=== PATIENT | male | born 1960 | race Caucasian/White ===

== ENCOUNTER 2017-04-03 04:51 | Emergency (ER) | payer OTHER ==
[~2017-04-03] VITALS: Ht 182.9 cm; Wt 86.2 kg
[2017-04-03] MEDS ORDERED: cloNIDine HCL 0.1 MG TAB ONE (05:06)
[2017-04-03] MEDS ORDERED: cloNIDine HCL 0.1 MG TAB PO ONE (05:15)
[2017-04-03 09:02] LABS: Basophils # (auto) 0.1 uL; Basophils % (auto) 0.7 % (0.0-2.0); Eosinophils # (auto) 0.4 uL; Eosinophils % (auto) 4.7 % (0.0-7.0); Hematocrit 45.7 % (41.0-53.0); Hemoglobin 15.4 g/dL (13.5-17.5); Lymphocytes # (auto) 2.9 uL; Lymphocytes % (auto) 34.3 % (10.0-50.0); Mean Corpuscular Hemoglobin 29.8 pg (28.0-32.0); Mean Corpuscular Hgb Conc. 33.7 g/dL (32.0-36.0); Mean Corpuscular Volume 88.5 fL (80.0-100.0); Monocytes # (auto) 0.8 uL; Monocytes % (auto) 9.7 % (0.0-12.0); Neutrophils # (auto) 4.2 uL; Neutrophils % (auto) 50.6 % (37.0-80.0); Nucleated Red Blood Cells % 0.1 %; Platelet Count (auto) 190 10^3/uL (140-450); Red Blood Cells 5.16 10^6/uL (4.5-5.90); White Blood Cell 8.4 10^3/uL (4.4-10.8)
[2017-04-03 09:27] LABS: Alanine Aminotransferase 28 U/L (16-61); Albumin 3.4 g/dL (3.4-5.0); Alkaline Phosphatase 112 U/L (45-117); Amylase 32 U/L (25-115); Anion Gap 5 (5-15); Aspartate Aminotransferase 22 U/L (15-37); BUN/Creatinine Ratio 17.7; Bilirubin, Total 0.3 mg/dL (0.2-1.0); Blood Urea Nitrogen 26 mg/dL (7-18); Carbon Dioxide 30 mmol/L (21-32); Chloride 106 mmol/L (98-107); GFR African American 63 mL/min; GFR Non-African American 52 mL/min; Glucose 113 mg/dL (74-106); Lipase 110 U/L (73-393); Magnesium 2.7 mg/dL (1.6-2.6); Sodium 141 mmol/L (136-145); Total Protein 8.6 g/dL (6.4-8.2)
[2017-04-03] MEDS ORDERED: SODIUM CHLORIDE 0.9% 1,000 ML IVB ONE (11:11)
[2017-04-03] MEDS ORDERED: NALBUPHINE HCL 10 MG/1ml INJECTION IV ONE (11:15)
[2017-04-03] MEDS ORDERED: PROMETHAZINE HCL 25 MG/ML 1ML IV PRN (11:15)
[2017-04-03 13:00] VITALS: BP 155/101
== END 2017-04-03 13:34 | disposition home or self-care (01) ==
LOC: ER 04:54
DX: K42.9 Umbilical hernia without obstruction or gangrene (principal); K44.9 Diaphragmatic hernia without obstruction or gangrene; F17.210 Nicotine dependence, cigarettes, uncomplicated
CPT/HCPCS: 36415; 74176; 80053; 82150; 83690; 83735; 84484; 85025; 96361; 96374; 96375; 99285; J2300; J2550; J7030

== ENCOUNTER 2020-09-29 17:42 | Emergency (ER) | payer OTHER ==
[~2020-09-29] VITALS: Ht 182.9 cm; Wt 74.8 kg
[2020-09-29 18:01] VITALS: BP 141/110
[2020-09-29 19:00] LABS: Basophils # (auto) 0.2 10 ^3/uL (0-0.2); Basophils % (auto) 2.2 % (0.0-2.0); Eosinophils # (auto) 0.4 10 ^3/uL (0-0.8); Hemoglobin 13.1 g/dL (13.5-17.5); Lymphocytes # (auto) 2.8 10 ^3/uL (0.4-5.4); Lymphocytes % (auto) 31.4 % (10.0-50.0); Mean Corpuscular Hemoglobin 26.8 pg (28.0-32.0); Mean Corpuscular Hgb Conc. 32.9 g/dL (32.0-36.0); Mean Corpuscular Volume 81.5 fL (80.0-100.0); Monocytes # (auto) 0.6 10 ^3/uL (0-1.3); Monocytes % (auto) 6.3 % (0.0-12.0); Neutrophils # (auto) 4.9 10 ^3/uL (1.6-8.6); Neutrophils % (auto) 56.1 % (37.0-80.0); Nucleated Red Blood Cells % 0.2 %; Red Blood Cells 4.91 10^6/uL (4.5-5.90); Red Cell Distribution Width 19.4 % (11.8-14.3); White Blood Cell 8.8 10^3/uL (4.4-10.8)
[2020-09-29 19:20] LABS: Albumin 2.9 g/dL (3.4-5.0); Blood Urea Nitrogen 29 mg/dL (7-18); Calcium 9.3 mg/dL (8.5-10.1); Carbon Dioxide 24 mmol/L (21-32); Glucose 85 mg/dL (74-106)
[2020-09-29 19:25] LABS: Alanine Aminotransferase 29 U/L (16-61); Alkaline Phosphatase 227 U/L (45-117); Anion Gap 8 (5-15); Aspartate Aminotransferase 23 U/L (15-37); BUN/Creatinine Ratio 12.8; Bilirubin, Total 0.5 mg/dL (0.2-1.0); Chloride 107 mmol/L (98-107); GFR African American 38 mL/min; GFR Non-African American 31 mL/min; Potassium 3.9 mmol/L (3.5-5.1); Sodium 139 mmol/L (136-145); Total Protein 9.2 g/dL (6.4-8.2)
== END 2020-09-29 21:38 | disposition left against medical advice (07) ==
LOC: ER 17:42
DX: K56.41 Fecal impaction (principal); E11.9 Type 2 diabetes mellitus without complications; I10 Essential (primary) hypertension; F17.210 Nicotine dependence, cigarettes, uncomplicated; I25.2 Old myocardial infarction; F15.10 Other stimulant abuse, uncomplicated
CPT/HCPCS: 36415; 71045; 74176; 80053; 84484; 85025; 87040; 93005

== ENCOUNTER 2020-12-26 15:55 | Inpatient (IN) | payer OTHER ==
[~2020-12-26] VITALS: Ht 180.3 cm; Wt 79.5 kg
[2020-12-26 17:07] LABS: Basophils # (auto) 0.1 10 ^3/uL (0-0.2); Basophils % (auto) 1.3 % (0.0-2.0); Eosinophils # (auto) 0.3 10 ^3/uL (0-0.8); Eosinophils % (auto) 4.5 % (0.0-7.0); Hemoglobin 11.8 g/dL (13.5-17.5); Lymphocytes # (auto) 1.6 10 ^3/uL (0.4-5.4); Lymphocytes % (auto) 22.2 % (10.0-50.0); Mean Corpuscular Hemoglobin 30.3 pg (28.0-32.0); Mean Corpuscular Hgb Conc. 32.6 g/dL (32.0-36.0); Mean Corpuscular Volume 92.7 fL (80.0-100.0); Monocytes # (auto) 0.5 10 ^3/uL (0-1.3); Monocytes % (auto) 6.6 % (0.0-12.0); Neutrophils # (auto) 4.8 10 ^3/uL (1.6-8.6); Neutrophils % (auto) 65.4 % (37.0-80.0); Red Blood Cells 3.88 10^6/uL (4.5-5.90); Red Cell Distribution Width 19.5 % (11.8-14.3); White Blood Cell 7.4 10^3/uL (4.4-10.8)
[2020-12-26 17:25] LABS: Albumin 3.4 g/dL (3.4-5.0); Calcium 9.1 mg/dL (8.5-10.1); Potassium 4.1 mmol/L (3.5-5.1)
[2020-12-26 17:33] LABS: BUN/Creatinine Ratio 13.7; Bilirubin, Total 0.6 mg/dL (0.2-1.0); Total Protein 8.9 g/dL (6.4-8.2)
[2020-12-26] MEDS ORDERED: FUROSEMIDE 40 MG/4 ML VIAL IV ONE ×2 (17:45→18:45)
[2020-12-26] MEDS ORDERED: LORazepam 0.5 MG TAB ONE (18:03)
[2020-12-26] MEDS ORDERED: DEXTROSE (50%) 50ML SYRG IV PRN (18:30)
[2020-12-26] MEDS ORDERED: MORPHINE SULFATE INJECTION 2 MG/ML SYRG IV PRN ×3 (18:30→19:00)
[2020-12-26] MEDS ORDERED: NITROGLYCERIN 0.4 MG SL TAB SL PRN ×2 (18:30→19:00)
[2020-12-26] MEDS ORDERED: METOPROLOL SUCCINATE XL 50 MG TAB PO ONE (18:30)
[2020-12-26] MEDS ORDERED: IPRATROPIUM BROM 0.5 MG/2.5ML INH SOL NEB ONE (18:45)
[2020-12-26] MEDS ORDERED: SODIUM CHLORIDE 0.9% 1,000 ML IV SCH (18:45)
[2020-12-26] MEDS ORDERED: LACTATED RINGER'S 1,000 ML IV ONE (18:45)
[2020-12-26] MEDS ORDERED: FAMOTIDINE (10MG/ML) 2ML VL IV ONE (18:45)
[2020-12-26] MEDS ORDERED: BENAZEPRIL HCL 10 MG TAB PO ONE (18:45)
[2020-12-26] MEDS ORDERED: AMIODARONE HCL 200 MG TAB PO ONE (18:45)
[2020-12-26] MEDS ORDERED: METOPROLOL TARTRATE 1MG/1ML-5ML VIAL IV PRN (18:45)
[2020-12-26] MEDS ORDERED: guaiFENesin-DM 100/10mg/5ml SYR PO ONE (18:45)
[2020-12-26] MEDS ORDERED: DULoxetine HCL 30 MG CAP PO ONE (19:00)
[2020-12-26] MEDS ORDERED: ACETAMINOPHEN 325 MG TAB PO PRN (19:00)
[2020-12-26] MEDS ORDERED: ALUM & MAG HYDROX-SIMETH LIQ(MAALOX) 30 ML PO PRN (19:00)
[2020-12-26] MEDS ORDERED: DOCUSATE SOD 100 MG CAP PO PRN (19:00)
[2020-12-26] MEDS ORDERED: HYDROcodone-ACET 5/325MG TAB PO PRN (19:00)
[2020-12-26] MEDS ORDERED: LORazepam 2MG/ML-1ML VIAL IV PRN (21:00)
[2020-12-26 21:04] LABS: Urine Bacteria NONE SEEN /hpf (None Seen); Urine Blood Negative /uL (Negative); Urine Hyaline Cast FEW /lpf (0 - 2); Urine Mucus FEW (None Seen); Urine Specific Gravity 1.025 (1.001-1.035); Urine Sperm PRESENT /hpf (None Seen); Urine WBC 2 /hpf (0 - 3)
[2020-12-26 21:15] LABS: Alcohol, Urine < 3.0 mg/dL (0-10); Amphetamine Screen, Urine POSITIVE (NEGATIVE); Barbiturate Scree,Urine NEGATIVE (NEGATIVE); Benzodiazephine Screen, Urine NEGATIVE (NEGATIVE); Cannabinoid Screen, Urine NEGATIVE (NEGATIVE); Cocaine Screen, Urine NEGATIVE (NEGATIVE); Opiate Scree,Urine NEGATIVE (NEGATIVE); Phencyclidine Screen, Urine NEGATIVE (NEGATIVE)
[2020-12-26] MEDS: LORazepam 0.5 MG TAB PO PRN (21:41)
[2020-12-26] MEDS: IPRATROPIUM BROM 0.5 MG/2.5ML INH SOL NEB SCH (21:45)
[2020-12-26] MEDS ORDERED: ATORVASTATIN 20 MG TAB PO SCH (22:00)
[2020-12-26 22:31] VITALS: BP 131/84
[2020-12-27] VITALS (9 sets, daily range): BP systolic 98–138; BP diastolic 71–89
[2020-12-27] MEDS: InsuLIN REG 1unit/0.01ml Soln (100units/ml) SC SCH ×5 (00:10→23:12)
[2020-12-27] MEDS: ACCU-CHEK COMFORT CURVE STRIP VI SCH ×5 (00:11→22:00)
[2020-12-27] MEDS ORDERED: METO25TA5 PO (00:24)
[2020-12-27] MEDS ORDERED: LISI-716 PO (00:24)
[2020-12-27] MEDS ORDERED: METF-372 PO (00:24)
[2020-12-27] MEDS ORDERED: LEVO50TA7 PO (00:24)
[2020-12-27] MEDS ORDERED: ASPI1TAB19 PO (00:24)
[2020-12-27] MEDS ORDERED: HYDR25TA5 PO (00:24)
[2020-12-27] MEDS ORDERED: INSU1INJ19 SC (00:24)
[2020-12-27] MEDS ORDERED: ATOR10TA52 PO (00:24)
[2020-12-27] MEDS ORDERED: APIX5TAB PO (00:24)
[2020-12-27] MEDS: IPRATROPIUM BROM 0.5 MG/2.5ML INH SOL NEB SCH ×6 (02:56→23:26)
[2020-12-27] MEDS ORDERED: FUROSEMIDE 20 MG/2 ML VIAL IV SCH (06:00)
[2020-12-27] MEDS: guaiFENesin-DM 100/10mg/5ml SYR PO PRN (06:30)
[2020-12-27] MEDS: LEVOTHYROXINE SODIUM 50 MCG TAB PO SCH (06:30)
[2020-12-27] MEDS ORDERED: AMIODARONE HCL 200 MG TAB PO SCH (10:00)
[2020-12-27] MEDS ORDERED: BENAZEPRIL HCL 10 MG TAB PO SCH (10:00)
[2020-12-27] MEDS ORDERED: DULoxetine HCL 30 MG CAP PO SCH (10:00)
[2020-12-27] MEDS: ASPirin 81 mg TAB PO SCH (10:05)
[2020-12-27] MEDS: FAMOTIDINE (10MG/ML) 2ML VL IV SCH (10:05)
[2020-12-27] MEDS: LORazepam 0.5 MG TAB PO PRN (10:28)
[2020-12-27 18:19] LABS: Eosinophils # (auto) 0 10 ^3/uL (0-0.8); Eosinophils % (auto) 0.1 % (0.0-7.0); Nucleated Red Blood Cells % 0.1 %
[2020-12-27 18:21] LABS: Basophils # (auto) 0.1 10 ^3/uL (0-0.2); Basophils % (auto) 0.9 % (0.0-2.0); Hematocrit 39.9 % (41.0-53.0); Hemoglobin 12.5 g/dL (13.5-17.5); Lymphocytes # (auto) 1.2 10 ^3/uL (0.4-5.4); Lymphocytes % (auto) 8.5 % (10.0-50.0); Mean Corpuscular Hemoglobin 29.8 pg (28.0-32.0); Mean Corpuscular Hgb Conc. 31.3 g/dL (32.0-36.0); Mean Corpuscular Volume 95.5 fL (80.0-100.0); Monocytes # (auto) 1.4 10 ^3/uL (0-1.3); Monocytes % (auto) 9.3 % (0.0-12.0); Neutrophils # (auto) 11.9 10 ^3/uL (1.6-8.6); Neutrophils % (auto) 81.2 % (37.0-80.0); Red Blood Cells 4.18 10^6/uL (4.5-5.90); Red Cell Distribution Width 19.8 % (11.8-14.3); White Blood Cell 14.6 10^3/uL (4.4-10.8)
[2020-12-27 18:32] LABS: Albumin 3.5 g/dL (3.4-5.0); Calcium 8.9 mg/dL (8.5-10.1)
[2020-12-27 18:40] LABS: BUN/Creatinine Ratio 14.5; Bilirubin, Total 3.6 mg/dL (0.2-1.0); Total Protein 8.5 g/dL (6.4-8.2)
[2020-12-27] MEDS: D5W/SOD CHLO 0.9% 1,000 ML IV SCH ×2 (18:40→23:37)
[2020-12-27 18:45] LABS: Potassium 6.4 mmol/L (3.5-5.1)
[2020-12-27] MEDS ORDERED: ALBUTEROL SULF 2.5 MG/0.5ML(0.5%) NEB SOLN ONE (18:57)
[2020-12-27] MEDS ORDERED: DEXTROSE (50%) 50ML SYRG IV ONE (19:00)
[2020-12-27] MEDS ORDERED: FUROSEMIDE 40 MG/4 ML VIAL IV ONE (19:00)
[2020-12-27] MEDS ORDERED: CALCIUM CHL 100MG/ML 1,000 MG in D5W 5% 100 ML IV ONE (19:00)
[2020-12-27] MEDS ORDERED: SODIUM ZIRCONIUM CYCL 10 GM PAK PO ONE (19:00)
[2020-12-27] MEDS ORDERED: InsuLIN REG 1unit/0.01ml Soln (100units/ml) IV ONE (19:00)
[2020-12-27] MEDS ORDERED: ALBUTEROL SULF 2.5 MG/0.5ML(0.5%) NEB SOLN NEB ONE (19:00)
[2020-12-27] MEDS ORDERED: SODIUM CHLORIDE 0.9% 250 ML IV ONE (19:00)
[2020-12-27] MEDS ORDERED: SODIUM BICARBONATE 8.4% INJ 50ML SYRINGE IV ONE (19:00)
[2020-12-27 19:59] LABS: Magnesium 2.6 mg/dL (1.6-2.6); Phosphorus 8.4 mg/dL (2.5-4.90)
[2020-12-27] MEDS ORDERED: CALCIUM GLUC 1,000mg/50ml-NS 50 ML IV ONE (20:28)
[2020-12-27] MEDS ORDERED: DEXTROSE 50% SYRINGE 50 ML IV ONE (20:29)
[2020-12-27] MEDS: SODIUM ZIRCONIUM CYCL 10 GM PAK PO SCH (22:00)
[2020-12-28] MEDS: IPRATROPIUM BROM 0.5 MG/2.5ML INH SOL NEB SCH ×6 (02:00→22:51)
[2020-12-28 05:00] VITALS: BP 88/50
[2020-12-28 05:42] LABS: Basophils # (auto) 0 10 ^3/uL (0-0.2); Basophils % (auto) 0.5 % (0.0-2.0); Eosinophils # (auto) 0 10 ^3/uL (0-0.8); Eosinophils % (auto) 0.1 % (0.0-7.0); Hematocrit 32.6 % (41.0-53.0); Hemoglobin 10.2 g/dL (13.5-17.5); Lymphocytes # (auto) 1.4 10 ^3/uL (0.4-5.4); Lymphocytes % (auto) 13.6 % (10.0-50.0); Mean Corpuscular Hemoglobin 30.5 pg (28.0-32.0); Mean Corpuscular Hgb Conc. 31.2 g/dL (32.0-36.0); Mean Corpuscular Volume 97.8 fL (80.0-100.0); Monocytes # (auto) 0.6 10 ^3/uL (0-1.3); Monocytes % (auto) 5.9 % (0.0-12.0); Neutrophils # (auto) 8.1 10 ^3/uL (1.6-8.6); Neutrophils % (auto) 79.9 % (37.0-80.0); Red Blood Cells 3.33 10^6/uL (4.5-5.90); Red Cell Distribution Width 19.8 % (11.8-14.3); White Blood Cell 10.2 10^3/uL (4.4-10.8)
[2020-12-28] MEDS: ACCU-CHEK COMFORT CURVE STRIP VI SCH ×4 (05:49→22:00)
[2020-12-28] MEDS: InsuLIN REG 1unit/0.01ml Soln (100units/ml) SC SCH ×4 (05:50→22:00)
[2020-12-28 05:57] LABS: Chloride 112 mmol/L (98-107); Potassium 4.6 mmol/L (3.5-5.1); Sodium 140 mmol/L (136-145)
[2020-12-28] MEDS: SODIUM ZIRCONIUM CYCL 10 GM PAK PO SCH ×2 (05:57→15:07)
[2020-12-28 06:03] LABS: Albumin 2.2 g/dL (3.4-5.0); Alkaline Phosphatase 155 U/L (45-117); BUN/Creatinine Ratio 13.7; Bilirubin, Total 1.7 mg/dL (0.2-1.0); Blood Urea Nitrogen 51 mg/dL (7-18); Carbon Dioxide 14 mmol/L (21-32); GFR African American 21 mL/min; GFR Non-African American 18 mL/min; Glucose 141 mg/dL (74-106); Total Protein 6.4 g/dL (6.4-8.2)
[2020-12-28] MEDS: guaiFENesin-DM 100/10mg/5ml SYR PO PRN (06:07)
[2020-12-28] MEDS: LEVOTHYROXINE SODIUM 50 MCG TAB PO SCH (06:07)
[2020-12-28] MEDS ORDERED: MIDODRINE HCL 10 MG TAB PO ONE (08:00)
[2020-12-28 08:14] LABS: Anion Gap 14 (5-15)
[2020-12-28 08:45] VITALS: BP 94/63
[2020-12-28 09:50] LABS: Alanine Aminotransferase 942 U/L (16-61); Aspartate Aminotransferase > 1000 U/L (15-37)
[2020-12-28] MEDS: ASPirin 81 mg TAB PO SCH (10:03)
[2020-12-28] MEDS: FAMOTIDINE (10MG/ML) 2ML VL IV SCH (10:03)
[2020-12-28 14:30] VITALS: BP 95/74
[2020-12-28] MEDS: ONDANSETRON HCL 4 MG/2 ML VIAL IV PRN (15:07)
[2020-12-28 17:00] VITALS: BP 90/72
[2020-12-28] MEDS ORDERED: SODIUM CHLORIDE 0.9% 1,000 ML IV SCH (17:15)
[2020-12-28] MEDS ORDERED: SODIUM BICARBONATE 8.4 % INJ 50ML VIAL IV ONE (17:45)
[2020-12-28] MEDS ORDERED: cefTRIAXone 1GM/50ML D5W 50 ML IV ONE (17:45)
[2020-12-28 20:00] VITALS: BP 99/77
[2020-12-28 22:00] VITALS: BP 99/77
[2020-12-28] MEDS: D5W/SOD CHLO 0.9% 1,000 ML IV SCH (23:33)
[2020-12-29] VITALS (7 sets, daily range): BP systolic 107–113; BP diastolic 7–80
[2020-12-29 05:54] LABS: Basophils # (auto) 0.1 10 ^3/uL (0-0.2); Basophils % (auto) 1.6 % (0.0-2.0); Eosinophils # (auto) 0.2 10 ^3/uL (0-0.8); Eosinophils % (auto) 2.6 % (0.0-7.0); Hematocrit 32.4 % (41.0-53.0); Hemoglobin 10.6 g/dL (13.5-17.5); Lymphocytes # (auto) 1.3 10 ^3/uL (0.4-5.4); Mean Corpuscular Hemoglobin 30.9 pg (28.0-32.0); Mean Corpuscular Hgb Conc. 32.7 g/dL (32.0-36.0); Mean Corpuscular Volume 94.4 fL (80.0-100.0); Monocytes # (auto) 0.7 10 ^3/uL (0-1.3); Monocytes % (auto) 7.9 % (0.0-12.0); Neutrophils % (auto) 71.9 % (37.0-80.0); Nucleated Red Blood Cells % 0.6 %; Red Blood Cells 3.43 10^6/uL (4.5-5.90); Red Cell Distribution Width 19.5 % (11.8-14.3); White Blood Cell 8.3 10^3/uL (4.4-10.8)
[2020-12-29] MEDS: IPRATROPIUM BROM 0.5 MG/2.5ML INH SOL NEB SCH ×5 (05:56→22:12)
[2020-12-29 06:07] LABS: Potassium 4.7 mmol/L (3.5-5.1)
[2020-12-29 06:13] LABS: BUN/Creatinine Ratio 15.5; Calcium 8.3 mg/dL (8.5-10.1)
[2020-12-29] MEDS: ACCU-CHEK COMFORT CURVE STRIP VI SCH ×4 (06:54→21:28)
[2020-12-29] MEDS: InsuLIN REG 1unit/0.01ml Soln (100units/ml) SC SCH ×4 (06:59→21:31)
[2020-12-29] MEDS: LEVOTHYROXINE SODIUM 50 MCG TAB PO SCH (07:00)
[2020-12-29] MEDS: FAMOTIDINE (10MG/ML) 2ML VL IV SCH (09:31)
[2020-12-29] MEDS: cefTRIAXone 1GM/50ML D5W 50 ML IV SCH (09:31)
[2020-12-29] MEDS: ASPirin 81 mg TAB PO SCH (09:31)
[2020-12-29 13:39] LABS: Hepatitis A Ab IgM Negative
[2020-12-29 13:59] LABS: Hepatitis B Core IgM Negative
[2020-12-29] MEDS ORDERED: LEVOTHYROXINE SODIUM 100 MCG/5 ML INJ IV ONE (14:15)
[2020-12-29] MEDS ORDERED: MORPHINE SULFATE INJECTION 2 MG/ML SYRG IV PRN (14:15)
[2020-12-29 14:17] LABS: Hepatitis C Antibody Negative (Negative)
[2020-12-29] MEDS: D5W/SOD CHLO 0.9% 1,000 ML IV SCH (21:04)
[2020-12-30 05:00] VITALS: BP 105/68
[2020-12-30 06:13] LABS: Basophils # (auto) 0 10 ^3/uL (0-0.2); Basophils % (auto) 0.6 % (0.0-2.0); Eosinophils # (auto) 0.3 10 ^3/uL (0-0.8); Eosinophils % (auto) 4.4 % (0.0-7.0); Hematocrit 34.8 % (41.0-53.0); Hemoglobin 11.3 g/dL (13.5-17.5); Lymphocytes # (auto) 1.1 10 ^3/uL (0.4-5.4); Lymphocytes % (auto) 15.2 % (10.0-50.0); Mean Corpuscular Hemoglobin 30.6 pg (28.0-32.0); Mean Corpuscular Hgb Conc. 32.6 g/dL (32.0-36.0); Monocytes # (auto) 0.6 10 ^3/uL (0-1.3); Monocytes % (auto) 8.5 % (0.0-12.0); Neutrophils # (auto) 5.1 10 ^3/uL (1.6-8.6); Neutrophils % (auto) 71.3 % (37.0-80.0); Red Cell Distribution Width 19.7 % (11.8-14.3); White Blood Cell 7.2 10^3/uL (4.4-10.8)
[2020-12-30] MEDS: ACCU-CHEK COMFORT CURVE STRIP VI SCH ×4 (06:15→22:01)
[2020-12-30] MEDS: InsuLIN REG 1unit/0.01ml Soln (100units/ml) SC SCH ×4 (06:15→22:00)
[2020-12-30 06:34] LABS: INR 1.68 (0.9-1.15)
[2020-12-30 06:35] LABS: Potassium 3.9 mmol/L (3.5-5.1)
[2020-12-30 06:58] LABS: Albumin 2.4 g/dL (3.4-5.0); BUN/Creatinine Ratio 17.3; Bilirubin, Total 1.3 mg/dL (0.2-1.0); Total Protein 6.5 g/dL (6.4-8.2)
[2020-12-30] MEDS: IPRATROPIUM BROM 0.5 MG/2.5ML INH SOL NEB SCH ×5 (06:59→22:06)
[2020-12-30 08:00] VITALS: BP_DIAS 7
[2020-12-30 09:00] VITALS: BP 124/81
[2020-12-30] MEDS: cefTRIAXone 1GM/50ML D5W 50 ML IV SCH (09:08)
[2020-12-30] MEDS: FAMOTIDINE (10MG/ML) 2ML VL IV SCH (09:09)
[2020-12-30] MEDS: LEVOTHYROXINE SODIUM 100 MCG/5 ML INJ IV SCH (09:09)
[2020-12-30] MEDS: ASPirin 81 mg TAB PO SCH (09:09)
[2020-12-30] MEDS ORDERED: ENOXAPARIN SOD 80 MG/0.8ML SYRINGE SC SCH (11:59)
[2020-12-30] MEDS ORDERED: ENOXAPARIN SOD 100 MG/1 ML SYRINGE SC ONE (12:00)
[2020-12-30 13:00] VITALS: BP 112/81
[2020-12-30] MEDS: ENOXAPARIN SOD 80 MG/0.8ML SYRINGE SC SCH (13:15)
[2020-12-30] MEDS ORDERED: METOPROLOL TARTRATE 1MG/1ML-5ML VIAL IV ONE (14:00)
[2020-12-30] MEDS ORDERED: AMIODARONE HCL 200 MG TAB PO ONE (14:00)
[2020-12-30] MEDS ORDERED: FUROSEMIDE 20 MG/2 ML VIAL IV ONE (14:00)
[2020-12-30] MEDS ORDERED: NICOTINE 21MG/24 HR TOPICAL PATCH TD ONE (14:30)
[2020-12-30] MEDS ORDERED: DIGOXIN (250MCG/ML) 2 ML AMPULE IV ONE (15:45)
[2020-12-30 17:00] VITALS: BP 95/67
[2020-12-30] MEDS: LEVALBUTEROL HCL 1.25 MG/3 ML NEB NEB PRN (18:25)
[2020-12-30] MEDS: AMIODARONE HCL 200 MG TAB PO SCH (21:50)
[2020-12-30] MEDS: METOPROLOL TARTRATE 25 MG TAB PO SCH (21:51)
[2020-12-30] MEDS: DIGOXIN (250MCG/ML) 2 ML AMPULE IV SCH (21:52)
[2020-12-30 22:00] VITALS: BP 121/65
[2020-12-31] MEDS: DIGOXIN (250MCG/ML) 2 ML AMPULE IV SCH ×2 (04:17→10:00)
[2020-12-31 05:00] VITALS: BP 115/83
[2020-12-31] MEDS: ACCU-CHEK COMFORT CURVE STRIP VI SCH ×4 (06:32→22:26)
[2020-12-31] MEDS: InsuLIN REG 1unit/0.01ml Soln (100units/ml) SC SCH ×4 (06:32→22:00)
[2020-12-31 06:41] LABS: INR 1.41 (0.9-1.15)
[2020-12-31 06:45] LABS: Calcium 8.4 mg/dL (8.5-10.1); Chloride 108 mmol/L (98-107); Potassium 4.2 mmol/L (3.5-5.1)
[2020-12-31 06:48] LABS: Hematocrit 39.4 % (41.0-53.0); Hemoglobin 12.3 g/dL (13.5-17.5); Mean Corpuscular Hemoglobin 29.9 pg (28.0-32.0); Mean Corpuscular Hgb Conc. 31.2 g/dL (32.0-36.0); Mean Corpuscular Volume 95.8 fL (80.0-100.0); Red Blood Cells 4.12 10^6/uL (4.5-5.90); White Blood Cell 6.5 10^3/uL (4.4-10.8)
[2020-12-31 06:52] LABS: Albumin 2.4 g/dL (3.4-5.0); Alkaline Phosphatase 227 U/L (45-117); Aspartate Aminotransferase 885 U/L (15-37); BUN/Creatinine Ratio 17.8; Blood Urea Nitrogen 48 mg/dL (7-18); Carbon Dioxide 21 mmol/L (21-32); GFR African American 31 mL/min; GFR Non-African American 26 mL/min; Glucose 99 mg/dL (74-106); Magnesium 2.2 mg/dL (1.6-2.6); Total Protein 6.9 g/dL (6.4-8.2)
[2020-12-31 06:56] LABS: Basophils % (manual) 0 (0.0-2.0); Blast Cells 0; Metamyelocytes % 0; Myelocytes % 0; Promyelocytes % 0; Reactive Lymphocytes 0; Red Cell Distribution Width 20.4 % (11.8-14.3)
[2020-12-31] MEDS: LEVALBUTEROL HCL 1.25 MG/3 ML NEB NEB PRN (07:09)
[2020-12-31] MEDS: IPRATROPIUM BROM 0.5 MG/2.5ML INH SOL NEB SCH ×5 (07:10→22:33)
[2020-12-31 08:49] LABS: Alanine Aminotransferase > 1000 U/L (16-61)
[2020-12-31 08:50] LABS: Band Neutrophils % (manual) 2; Eosinophils % (manual) 5 (0-7); Lymphocytes % (manual) 14 (10.0-50.0); Monocytes % (manual) 2 (0-12)
[2020-12-31 09:02] LABS: Anion Gap 7 (5-15); Sodium 136 mmol/L (136-145)
[2020-12-31 09:26] VITALS: BP 132/74
[2020-12-31] MEDS: NICOTINE 14 MG/24HR TOPICAL PATCH TD SCH (10:00)
[2020-12-31] MEDS ORDERED: NICOTINE 21MG/24 HR TOPICAL PATCH TD SCH (10:00)
[2020-12-31] MEDS: AMIODARONE HCL 200 MG TAB PO SCH ×2 (10:56→22:24)
[2020-12-31] MEDS: METOPROLOL TARTRATE 25 MG TAB PO SCH ×2 (10:57→22:26)
[2020-12-31] MEDS: ASPirin 81 mg TAB PO SCH (10:57)
[2020-12-31] MEDS: FAMOTIDINE (10MG/ML) 2ML VL IV SCH (10:58)
[2020-12-31] MEDS: ENOXAPARIN SOD 80 MG/0.8ML SYRINGE SC SCH (10:58)
[2020-12-31] MEDS: LEVOTHYROXINE SODIUM 100 MCG/5 ML INJ IV SCH (10:58)
[2020-12-31] MEDS: FUROSEMIDE 20 MG/2 ML VIAL IV SCH (10:59)
[2020-12-31 13:20] VITALS: BP 122/85
[2020-12-31] MEDS ORDERED: cefTRIAXone 1GM/50ML D5W 50 ML IV ONE (14:45)
[2020-12-31] MEDS ORDERED: AZITHROMYCIN 500MG/ 250ML 250 ML IV ONE (14:45)
[2020-12-31] MEDS: ONDANSETRON HCL 4 MG/2 ML VIAL IV PRN (16:33)
[2020-12-31 17:24] VITALS: BP 131/73
[2020-12-31 22:00] VITALS: BP 121/70
[2021-01-01 05:00] VITALS: BP 118/77
[2021-01-01 05:32] LABS: Hemoglobin 12.3 g/dL (13.5-17.5); Mean Corpuscular Hemoglobin 30.2 pg (28.0-32.0); Mean Corpuscular Hgb Conc. 32.4 g/dL (32.0-36.0); Mean Corpuscular Volume 93.2 fL (80.0-100.0); Red Blood Cells 4.07 10^6/uL (4.5-5.90); Red Cell Distribution Width 19.7 % (11.8-14.3); White Blood Cell 6.9 10^3/uL (4.4-10.8)
[2021-01-01 05:43] LABS: Basophils % (manual) 0 (0.0-2.0); Blast Cells 0; Metamyelocytes % 0; Promyelocytes % 0; Reactive Lymphocytes 0
[2021-01-01 05:50] LABS: Albumin 2.6 g/dL (3.4-5.0); Calcium 8.2 mg/dL (8.5-10.1); Potassium 3.8 mmol/L (3.5-5.1)
[2021-01-01 06:00] LABS: BUN/Creatinine Ratio 16.2; Bilirubin, Total 1.2 mg/dL (0.2-1.0); Total Protein 7.3 g/dL (6.4-8.2)
[2021-01-01 06:08] LABS: INR 1.24 (0.9-1.15)
[2021-01-01 06:40] LABS: Band Neutrophils % (manual) 1; Eosinophils % (manual) 4 (0-7); Lymphocytes % (manual) 19 (10.0-50.0); Monocytes % (manual) 13 (0-12); Myelocytes % 1
[2021-01-01] MEDS: InsuLIN REG 1unit/0.01ml Soln (100units/ml) SC SCH ×4 (06:52→21:33)
[2021-01-01] MEDS: ACCU-CHEK COMFORT CURVE STRIP VI SCH ×4 (06:53→21:32)
[2021-01-01] MEDS: LEVALBUTEROL HCL 1.25 MG/3 ML NEB NEB PRN (07:07)
[2021-01-01] MEDS: IPRATROPIUM BROM 0.5 MG/2.5ML INH SOL NEB SCH ×5 (07:07→22:00)
[2021-01-01 09:00] VITALS: BP 100/65
[2021-01-01] MEDS: cefTRIAXone 1GM/50ML D5W 50 ML IV SCH (10:10)
[2021-01-01] MEDS: AZITHROMYCIN 500MG/ 250ML 250 ML IV SCH (10:12)
[2021-01-01] MEDS: LEVOTHYROXINE SODIUM 100 MCG/5 ML INJ IV SCH (10:12)
[2021-01-01] MEDS: FUROSEMIDE 20 MG/2 ML VIAL IV SCH (10:12)
[2021-01-01] MEDS: NICOTINE 14 MG/24HR TOPICAL PATCH TD SCH (10:12)
[2021-01-01] MEDS: FAMOTIDINE (10MG/ML) 2ML VL IV SCH (10:12)
[2021-01-01] MEDS: METOPROLOL TARTRATE 25 MG TAB PO SCH ×2 (10:13→21:33)
[2021-01-01] MEDS: ASPirin 81 mg TAB PO SCH (10:13)
[2021-01-01] MEDS: AMIODARONE HCL 200 MG TAB PO SCH ×2 (10:13→21:32)
[2021-01-01] MEDS: ENOXAPARIN SOD 80 MG/0.8ML SYRINGE SC SCH (10:14)
[2021-01-01 13:00] VITALS: BP 105/74
[2021-01-01 17:00] VITALS: BP 101/68
[2021-01-01 22:00] VITALS: BP 101/68
[2021-01-01 23:26] VITALS: BP 101/68
[2021-01-02] MEDS: ONDANSETRON HCL 4 MG/2 ML VIAL IV PRN (01:10)
[2021-01-02 05:00] VITALS: BP 114/72
[2021-01-02] MEDS: IPRATROPIUM BROM 0.5 MG/2.5ML INH SOL NEB SCH ×4 (06:00→14:00)
[2021-01-02 06:34] LABS: Albumin 2.8 g/dL (3.4-5.0); BUN/Creatinine Ratio 16.3; Calcium 8.6 mg/dL (8.5-10.1); Potassium 4.1 mmol/L (3.5-5.1)
[2021-01-02] MEDS: InsuLIN REG 1unit/0.01ml Soln (100units/ml) SC SCH ×2 (06:34→11:35)
[2021-01-02] MEDS: ACCU-CHEK COMFORT CURVE STRIP VI SCH ×2 (06:34→11:36)
[2021-01-02 06:37] LABS: INR 1.13 (0.9-1.15)
[2021-01-02 06:42] LABS: Bilirubin, Total 1.1 mg/dL (0.2-1.0); Total Protein 7.5 g/dL (6.4-8.2)
[2021-01-02] MEDS: LEVALBUTEROL HCL 1.25 MG/3 ML NEB NEB PRN (07:04)
[2021-01-02 09:00] VITALS: BP 132/86
[2021-01-02] MEDS: cefTRIAXone 1GM/50ML D5W 50 ML IV SCH (09:33)
[2021-01-02] MEDS: FUROSEMIDE 20 MG/2 ML VIAL IV SCH (09:33)
[2021-01-02] MEDS: FAMOTIDINE (10MG/ML) 2ML VL IV SCH (09:34)
[2021-01-02] MEDS: LEVOTHYROXINE SODIUM 100 MCG/5 ML INJ IV SCH (09:34)
[2021-01-02] MEDS: ENOXAPARIN SOD 80 MG/0.8ML SYRINGE SC SCH (09:37)
[2021-01-02] MEDS: NICOTINE 14 MG/24HR TOPICAL PATCH TD SCH (09:39)
[2021-01-02] MEDS: ASPirin 81 mg TAB PO SCH (09:40)
[2021-01-02] MEDS: AMIODARONE HCL 200 MG TAB PO SCH (09:40)
[2021-01-02] MEDS: METOPROLOL TARTRATE 25 MG TAB PO SCH (10:25)
[2021-01-02] MEDS ORDERED: NIC21P TOP (11:25)
[2021-01-02] MEDS ORDERED: DOXY-286 PO (11:25)
[2021-01-02] MEDS ORDERED: LEV100T PO (11:25)
[2021-01-02] MEDS ORDERED: ALBUAER3 IN (11:25)
[2021-01-02] MEDS ORDERED: FURO1TAB33 PO (11:25)
[2021-01-02] MEDS ORDERED: AMIO200T33 PO (11:25)
[2021-01-02] MEDS: AZITHROMYCIN 500MG/ 250ML 250 ML IV SCH (11:38)
[2021-01-02] MEDS ORDERED: LEVO125T7 PO (13:39)
[2021-01-02 13:55] VITALS: BP 132/86
== END 2021-01-02 17:00 | disposition home health service (06) | DRG 133 ==
LOC: ER 15:55 → TELE 18:23 → TELE-WESTW 21:59 → TELE 12-31 10:40 → TELE-WESTW 12-31 10:46
PROVIDERS: ADMIT Hospitalist; ATTEND Internal Medicine
DX: J96.01 Acute respiratory failure with hypoxia (principal); N17.0 Acute kidney failure with tubular necrosis; K72.00 Acute and subacute hepatic failure without coma; J69.0 Pneumonitis due to inhalation of food and vomit; G92.9 Unspecified toxic encephalopathy; I50.43 Acute on chronic combined systolic (congestive) and diastolic (congestive) heart failure; I95.9 Hypotension, unspecified; D68.9 Coagulation defect, unspecified; I27.20 Pulmonary hypertension, unspecified; I13.0 Hypertensive heart and chronic kidney disease with heart failure and stage 1 through stage 4 chronic kidney disease, or unspecified chronic kidney disease; I42.7 Cardiomyopathy due to drug and external agent; D64.9 Anemia, unspecified; E11.22 Type 2 diabetes mellitus with diabetic chronic kidney disease; D69.59 Other secondary thrombocytopenia; E11.65 Type 2 diabetes mellitus with hyperglycemia; E78.5 Hyperlipidemia, unspecified; K21.9 Gastro-esophageal reflux disease without esophagitis; I48.0 Paroxysmal atrial fibrillation; Z20.822 Contact with and (suspected) exposure to COVID-19; E03.9 Hypothyroidism, unspecified; E87.5 Hyperkalemia; I25.10 Atherosclerotic heart disease of native coronary artery without angina pectoris; I45.89 Other specified conduction disorders; I48.92 Unspecified atrial flutter; J44.9 Chronic obstructive pulmonary disease, unspecified; K29.70 Gastritis, unspecified, without bleeding; N18.32 Chronic kidney disease, stage 3b; T46.6X5A Adverse effect of antihyperlipidemic and antiarteriosclerotic drugs, initial encounter; Z71.6 Tobacco abuse counseling; Z72.0 Tobacco use; Z79.01 Long term (current) use of anticoagulants; Z79.4 Long term (current) use of insulin; Z83.3 Family history of diabetes mellitus; Z86.16 Personal history of COVID-19; Z91.19 Patient's noncompliance with other medical treatment and regimen; Z87.01 Personal history of pneumonia (recurrent); F15.10 Other stimulant abuse, uncomplicated; F41.1 Generalized anxiety disorder
CPT/HCPCS: 36415; 70450; 71045; 76705; 76775; 78582; 80048; 80053; 80061; 80074; 80162; 80307; 81001; 82306; 82550; 82962; 83036; 83735; 83880; 83970; 84100; 84132; 84146; 84439; 84443; 84484; 85007; 85025; 85027; 85379; 85610; 87040; 87086; 87426; 93005; 93306; 93970; 94640; 96361; 96374; G0378; J0696; J1815; J2405; J3490; J7042; J7060

== ENCOUNTER 2021-01-15 06:01 | Emergency (ER) | payer OTHER ==
[~2021-01-15] VITALS: Ht 182.9 cm; Wt 75.7 kg
[~2021-01-15 06:01] MED LIST: ALBUAER3 IN; AMIO200T33 PO; APIX5TAB PO; ASPI1TAB19 PO; DOXY-286 PO; FURO1TAB33 PO; INSU1INJ19 SC; LEVO125T7 PO; METF-372 PO; METO25TA5 PO; NIC21P TOP
[2021-01-15 07:47] VITALS: BP 146/99
== END 2021-01-15 08:01 | disposition home or self-care (01) ==
LOC: ER 06:01
DX: S20.212A Contusion of left front wall of thorax, initial encounter (principal); J44.9 Chronic obstructive pulmonary disease, unspecified; E11.22 Type 2 diabetes mellitus with diabetic chronic kidney disease; I13.0 Hypertensive heart and chronic kidney disease with heart failure and stage 1 through stage 4 chronic kidney disease, or unspecified chronic kidney disease; N18.9 Chronic kidney disease, unspecified; I50.9 Heart failure, unspecified; V49.88XA Car occupant (driver) (passenger) injured in other specified transport accidents, initial encounter; Y93.89 Activity, other specified; Y92.488 Other paved roadways as the place of occurrence of the external cause; Y99.8 Other external cause status
CPT/HCPCS: 71045; 71101

== ENCOUNTER 2021-02-16 20:36 | Inpatient (IN) | payer OTHER ==
[~2021-02-16] VITALS: Ht 182.9 cm; Wt 78.6 kg
[~2021-02-16 20:36] MED LIST changes: -AMIO200T33 PO
[2021-02-16 23:14] LABS: Basophils # (auto) 0.1 10 ^3/uL (0-0.2); Eosinophils # (auto) 0.1 10 ^3/uL (0-0.8); Eosinophils % (auto) 0.9 % (0.0-7.0); Hematocrit 39.9 % (41.0-53.0); Hemoglobin 12.7 g/dL (13.5-17.5); Lymphocytes # (auto) 1.4 10 ^3/uL (0.4-5.4); Mean Corpuscular Hemoglobin 27.9 pg (28.0-32.0); Mean Corpuscular Hgb Conc. 31.7 g/dL (32.0-36.0); Monocytes # (auto) 0.8 10 ^3/uL (0-1.3); Monocytes % (auto) 12.1 % (0.0-12.0); Neutrophils # (auto) 4.4 10 ^3/uL (1.6-8.6); Nucleated Red Blood Cells % 0.2 %; Red Blood Cells 4.54 10^6/uL (4.5-5.90); Red Cell Distribution Width 18.5 % (11.8-14.3); White Blood Cell 6.8 10^3/uL (4.4-10.8)
[2021-02-16 23:31] LABS: Albumin 3.3 g/dL (3.4-5.0); Calcium 8.9 mg/dL (8.5-10.1); Potassium 5.2 mmol/L (3.5-5.1)
[2021-02-16 23:37] LABS: BUN/Creatinine Ratio 16.5; Bilirubin, Total 1.7 mg/dL (0.2-1.0)
[2021-02-17] MEDS ORDERED: ONDANSETRON HCL 4 MG/2 ML VIAL IV ONE (08:30)
[2021-02-17] MEDS ORDERED: MORPHINE SULFATE 4 MG/ML SYR/VIAL IV ONE (08:30)
[2021-02-17] MEDS ORDERED: SODIUM BICARBONATE 8.4% INJ 50ML SYRINGE IV ONE (10:00)
[2021-02-17] MEDS ORDERED: NITROGLYCERIN 0.4 MG SL TAB SL PRN ×2 (10:00→14:00)
[2021-02-17] MEDS ORDERED: InsuLIN REG 1unit/0.01ml Soln (100units/ml) IV ONE (10:00)
[2021-02-17] MEDS ORDERED: FUROSEMIDE 20 MG/2 ML VIAL IV ONE (10:00)
[2021-02-17] MEDS ORDERED: ALBUTEROL SULF 2.5 MG/0.5ML(0.5%) NEB SOLN NEB ONE ×2 (10:00→10:45)
[2021-02-17] MEDS ORDERED: DEXTROSE (50%) 50ML SYRG IV ONE ×2 (10:00→17:45)
[2021-02-17] MEDS ORDERED: MORPHINE SULFATE INJECTION 2 MG/ML SYRG IV PRN ×3 (10:00→14:00)
[2021-02-17] MEDS ORDERED: CALCIUM CHL 100MG/ML 1,000 MG in D5W 5% 100 ML IV ONE (10:00)
[2021-02-17] MEDS ORDERED: ALBUAER3 IN (10:15)
[2021-02-17] MEDS ORDERED: LEVO50TA7 PO (10:15)
[2021-02-17] MEDS ORDERED: HYDR25TA5 PO (10:15)
[2021-02-17] MEDS ORDERED: AMIO200T33 PO (10:15)
[2021-02-17] MEDS ORDERED: ATOR10TA52 PO (10:15)
[2021-02-17] MEDS ORDERED: LISI-716 PO (10:15)
[2021-02-17] MEDS ORDERED: BUMETANIDE 2.5mg/10ml (0.25 mg/ml) INJ IV ONE (10:45)
[2021-02-17] MEDS ORDERED: IPRATROPIUM BROM 0.5 MG/2.5ML INH SOL NEB ONE (10:45)
[2021-02-17] MEDS ORDERED: BUDESONIDE (INHALATION) 0.5 MG/2 ML NEB NEB ONE (10:45)
[2021-02-17] MEDS ORDERED: ENOXAPARIN SOD 30 MG/0.3 ML SYRINGE SC ONE (10:45)
[2021-02-17] MEDS ORDERED: methylPREDNISolone SOD SUCC 125 MG/2 ML VL IV ONE (10:45)
[2021-02-17] MEDS ORDERED: ASPirin 81 mg TAB PO ONE (10:45)
[2021-02-17] MEDS ORDERED: DEXTROSE (50%) 50ML SYRG IV PRN (10:45)
[2021-02-17] MEDS ORDERED: ATORVASTATIN 20 MG TAB PO ONE (10:45)
[2021-02-17] MEDS ORDERED: CARVEDILOL 3.125 MG TAB PO ONE (10:45)
[2021-02-17] MEDS ORDERED: cefTRIAXone 1GM/50ML D5W 50 ML IV ONE (11:00)
[2021-02-17] MEDS ORDERED: AZITHROMYCIN 500MG/ 250ML 250 ML IV ONE (12:00)
[2021-02-17] MEDS: InsuLIN REG 1unit/0.01ml Soln (100units/ml) SC SCH ×3 (12:59→22:00)
[2021-02-17] MEDS: ACCU-CHEK COMFORT CURVE STRIP VI SCH ×2 (12:59→17:00)
[2021-02-17] MEDS ORDERED: LORazepam 2MG/ML-1ML VIAL IV PRN (13:45)
[2021-02-17] MEDS ORDERED: METOPROLOL SUCCINATE XL 50 MG TAB PO ONE (14:00)
[2021-02-17] MEDS ORDERED: DOCUSATE SOD 100 MG CAP PO PRN (14:00)
[2021-02-17] MEDS ORDERED: ACETAMINOPHEN 325 MG TAB PO PRN (14:00)
[2021-02-17] MEDS ORDERED: LABETALOL HCL 5 MG/ML 4ML SYRINGE IV PRN (14:00)
[2021-02-17] MEDS ORDERED: ALUM & MAG HYDROX-SIMETH LIQ(MAALOX) 30 ML PO PRN (14:00)
[2021-02-17] MEDS ORDERED: AMIODARONE HCL 200 MG TAB PO ONE (14:00)
[2021-02-17] MEDS ORDERED: IPRATROPIUM BROM 0.5 MG/2.5ML INH SOL NEB SCH (14:00)
[2021-02-17] MEDS ORDERED: ALBUTEROL SULF 2.5 MG/0.5ML(0.5%) NEB SOLN NEB SCH (14:00)
[2021-02-17] MEDS: methylPREDNISolone SOD SUCC 40 MG/ML VL IV SCH (14:10)
[2021-02-17] MEDS: LORazepam 0.5 MG TAB PO PRN (14:41)
[2021-02-17] MEDS ORDERED: THIAMINE 100mg/ml INJ (200mg/2ml VIAL) IV ONE (17:45)
[2021-02-17] MEDS ORDERED: NALOXONE HCL 0.4 MG/ML VIAL ONE ×2 (17:58→18:02)
[2021-02-17] MEDS: BUMETANIDE 2.5mg/10ml (0.25 mg/ml) INJ IV SCH (18:00)
[2021-02-17] MEDS ORDERED: NALOXONE HCL 0.4 MG/ML VIAL IV ONE (18:15)
[2021-02-17] MEDS: hydrALAZINE HCL 25 MG TAB PO SCH (18:31)
[2021-02-17] MEDS: ALBUTEROL SULF 2.5 MG/0.5ML(0.5%) NEB SOLN NEB PRN (19:46)
[2021-02-17] MEDS: IPRATROPIUM BROM 0.5 MG/2.5ML INH SOL NEB PRN (19:46)
[2021-02-17] MEDS: BUDESONIDE (INHALATION) 0.5 MG/2 ML NEB NEB SCH (19:46)
[2021-02-17] MEDS ORDERED: ATORVASTATIN 20 MG TAB PO SCH (22:00)
[2021-02-17] MEDS ORDERED: CARVEDILOL 3.125 MG TAB PO SCH (22:00)
[2021-02-17 22:35] VITALS: BP 124/95
[2021-02-18] VITALS (7 sets, daily range): BP systolic 109–131; BP diastolic 68–98
[2021-02-18] MEDS: ACCU-CHEK COMFORT CURVE STRIP VI SCH ×5 (00:06→22:09)
[2021-02-18] MEDS: methylPREDNISolone SOD SUCC 40 MG/ML VL IV SCH ×4 (00:06→22:08)
[2021-02-18] MEDS: APIXABAN 2.5 MG TAB PO SCH ×3 (00:06→22:09)
[2021-02-18] MEDS: hydrALAZINE HCL 25 MG TAB PO SCH ×3 (00:10→14:00)
[2021-02-18] MEDS: ISOSORBIDE MONONITRATE 20 MG TAB PO SCH ×3 (00:10→22:22)
[2021-02-18] MEDS: BUMETANIDE 2.5mg/10ml (0.25 mg/ml) INJ IV SCH ×2 (06:21→18:28)
[2021-02-18] MEDS: LEVOTHYROXINE SODIUM 50 MCG TAB PO SCH (06:22)
[2021-02-18] MEDS: InsuLIN REG 1unit/0.01ml Soln (100units/ml) SC SCH ×4 (06:22→22:10)
[2021-02-18 06:53] LABS: Basophils # (auto) 0 10 ^3/uL (0-0.2); Basophils % (auto) 0.2 % (0.0-2.0); Eosinophils # (auto) 0 10 ^3/uL (0-0.8); Eosinophils % (auto) 0.1 % (0.0-7.0); Hematocrit 38.3 % (41.0-53.0); Hemoglobin 12.1 g/dL (13.5-17.5); Lymphocytes # (auto) 0.7 10 ^3/uL (0.4-5.4); Lymphocytes % (auto) 12.4 % (10.0-50.0); Mean Corpuscular Hemoglobin 27.6 pg (28.0-32.0); Mean Corpuscular Hgb Conc. 31.5 g/dL (32.0-36.0); Mean Corpuscular Volume 87.7 fL (80.0-100.0); Monocytes # (auto) 0.3 10 ^3/uL (0-1.3); Monocytes % (auto) 5.2 % (0.0-12.0); Neutrophils # (auto) 4.8 10 ^3/uL (1.6-8.6); Neutrophils % (auto) 82.1 % (37.0-80.0); Nucleated Red Blood Cells % 0.2 %; Red Blood Cells 4.37 10^6/uL (4.5-5.90); Red Cell Distribution Width 18.6 % (11.8-14.3); White Blood Cell 5.8 10^3/uL (4.4-10.8)
[2021-02-18 07:05] LABS: Potassium 5.2 mmol/L (3.5-5.1)
[2021-02-18 07:06] LABS: Urine Bacteria FEW /hpf (None Seen); Urine Blood Negative /uL (Negative); Urine Specific Gravity 1.006 (1.001-1.035); Urine WBC 5 /hpf (0 - 3)
[2021-02-18 07:12] LABS: INR 1.94 (0.9-1.15); Partial Thromboplastin Time 31.9 sec (23.6-33.0)
[2021-02-18 07:18] LABS: Alcohol, Urine < 3.0 mg/dL (0-10); Amphetamine Screen, Urine POSITIVE (NEGATIVE); Barbiturate Scree,Urine NEGATIVE (NEGATIVE); Benzodiazephine Screen, Urine NEGATIVE (NEGATIVE); Cannabinoid Screen, Urine NEGATIVE (NEGATIVE); Cocaine Screen, Urine NEGATIVE (NEGATIVE); Opiate Scree,Urine NEGATIVE (NEGATIVE); Phencyclidine Screen, Urine NEGATIVE (NEGATIVE)
[2021-02-18 07:18] LABS: Albumin 2.8 g/dL (3.4-5.0); BUN/Creatinine Ratio 15.8; Bilirubin, Total 2.6 mg/dL (0.2-1.0); Calcium 8.5 mg/dL (8.5-10.1); Magnesium 3.2 mg/dL (1.6-2.6); Phosphorus 6.4 mg/dL (2.5-4.90); Total Protein 7.6 g/dL (6.4-8.2)
[2021-02-18] MEDS: cefTRIAXone 1GM/50ML D5W 50 ML IV SCH (08:55)
[2021-02-18] MEDS: ASPirin 81 mg TAB PO SCH (08:57)
[2021-02-18] MEDS: AZITHROMYCIN 500MG/ 250ML 250 ML IV SCH (08:57)
[2021-02-18] MEDS: AMIODARONE HCL 200 MG TAB PO SCH (08:58)
[2021-02-18] MEDS ORDERED: METOPROLOL SUCCINATE XL 50 MG TAB PO SCH (10:00)
[2021-02-18] MEDS ORDERED: NICOTINE 21MG/24 HR TOPICAL PATCH TD SCH (10:00)
[2021-02-18] MEDS: BUDESONIDE (INHALATION) 0.5 MG/2 ML NEB NEB SCH ×2 (10:00→21:03)
[2021-02-18] MEDS ORDERED: ENOXAPARIN SOD 40 MG/0.4 ML SYRINGE SC SCH (10:00)
[2021-02-18] MEDS ORDERED: MORPHINE SULFATE INJECTION 2 MG/ML SYRG IV PRN (15:30)
[2021-02-18] MEDS: ONDANSETRON HCL 4 MG/2 ML VIAL IV PRN (16:04)
[2021-02-18] MEDS: IPRATROPIUM BROM 0.5 MG/2.5ML INH SOL NEB PRN (21:02)
[2021-02-18] MEDS: ALBUTEROL SULF 2.5 MG/0.5ML(0.5%) NEB SOLN NEB PRN (21:02)
[2021-02-18] MEDS ORDERED: CARVEDILOL 3.125 MG TAB PO SCH (22:00)
[2021-02-18] MEDS: LORazepam 0.5 MG TAB PO PRN (22:07)
[2021-02-18] MEDS: INSULIN LANTUS (GLARGINE) 1 /0.01ml (100units/ml) SC SCH (22:09)
[2021-02-18] MEDS: CARVEDILOL 3.125 MG TAB PO SCH (22:22)
[2021-02-19 05:00] VITALS: BP 117/91
[2021-02-19] MEDS: LEVOTHYROXINE SODIUM 50 MCG TAB PO SCH (05:50)
[2021-02-19] MEDS: BUMETANIDE 2.5mg/10ml (0.25 mg/ml) INJ IV SCH ×2 (05:50→18:00)
[2021-02-19] MEDS: InsuLIN REG 1unit/0.01ml Soln (100units/ml) SC SCH ×4 (05:51→21:55)
[2021-02-19] MEDS: ACCU-CHEK COMFORT CURVE STRIP VI SCH ×4 (05:51→21:38)
[2021-02-19] MEDS: LORazepam 0.5 MG TAB PO PRN ×2 (06:34→12:18)
[2021-02-19] MEDS: BUDESONIDE (INHALATION) 0.5 MG/2 ML NEB NEB SCH ×2 (06:35→19:10)
[2021-02-19] MEDS: IPRATROPIUM BROM 0.5 MG/2.5ML INH SOL NEB PRN ×2 (06:35→19:10)
[2021-02-19] MEDS: ALBUTEROL SULF 2.5 MG/0.5ML(0.5%) NEB SOLN NEB PRN ×2 (06:35→19:10)
[2021-02-19 08:10] LABS: Basophils # (auto) 0 10 ^3/uL (0-0.2); Basophils % (auto) 0.1 % (0.0-2.0); Eosinophils # (auto) 0 10 ^3/uL (0-0.8); Hematocrit 36.9 % (41.0-53.0); Lymphocytes # (auto) 0.7 10 ^3/uL (0.4-5.4); Lymphocytes % (auto) 5.1 % (10.0-50.0); Mean Corpuscular Hemoglobin 27.7 pg (28.0-32.0); Mean Corpuscular Hgb Conc. 32.4 g/dL (32.0-36.0); Mean Corpuscular Volume 85.5 fL (80.0-100.0); Monocytes # (auto) 0.3 10 ^3/uL (0-1.3); Monocytes % (auto) 2.3 % (0.0-12.0); Neutrophils # (auto) 13.4 10 ^3/uL (1.6-8.6); Neutrophils % (auto) 92.5 % (37.0-80.0); Nucleated Red Blood Cells % 0.1 %; Red Blood Cells 4.31 10^6/uL (4.5-5.90); Red Cell Distribution Width 18.4 % (11.8-14.3); White Blood Cell 14.5 10^3/uL (4.4-10.8)
[2021-02-19 08:29] LABS: INR 1.88 (0.9-1.15)
[2021-02-19 08:58] LABS: Potassium 4.4 mmol/L (3.5-5.1)
[2021-02-19 09:00] VITALS: BP 122/92
[2021-02-19] MEDS: methylPREDNISolone SOD SUCC 40 MG/ML VL IV SCH (09:03)
[2021-02-19] MEDS: ASPirin 81 mg TAB PO SCH (09:03)
[2021-02-19] MEDS: APIXABAN 2.5 MG TAB PO SCH (09:04)
[2021-02-19] MEDS: PANTOPRAZOLE 40 MG TAB PO SCH (09:04)
[2021-02-19] MEDS: CARVEDILOL 3.125 MG TAB PO SCH ×2 (09:04→21:39)
[2021-02-19] MEDS: AMIODARONE HCL 200 MG TAB PO SCH (09:05)
[2021-02-19] MEDS: AZITHROMYCIN 500MG/ 250ML 250 ML IV SCH (09:05)
[2021-02-19] MEDS: cefTRIAXone 1GM/50ML D5W 50 ML IV SCH (09:05)
[2021-02-19 09:17] LABS: Albumin 2.9 g/dL (3.4-5.0); BUN/Creatinine Ratio 21.6; Bilirubin, Total 1.3 mg/dL (0.2-1.0); Calcium 8.1 mg/dL (8.5-10.1); Magnesium 2.2 mg/dL (1.6-2.6); Total Protein 8.1 g/dL (6.4-8.2)
[2021-02-19] MEDS: ISOSORBIDE MONONITRATE 20 MG TAB PO SCH ×2 (10:00→21:54)
[2021-02-19 10:18] LABS: Hepatitis B Surface Antibody Negative (Negative)
[2021-02-19] MEDS: NICOTINE 7MG/24HR TOPICAL PATCH TD SCH (12:06)
[2021-02-19 12:59] VITALS: BP 115/78
[2021-02-19] MEDS ORDERED: ENOXAPARIN SOD 80 MG/0.8ML SYRINGE SC ONE (15:45)
[2021-02-19 17:00] VITALS: BP 109/76
[2021-02-19] MEDS: DOXYCYCLINE 100 MG TAB/CAP PO SCH (21:37)
[2021-02-19] MEDS: INSULIN LANTUS (GLARGINE) 1 /0.01ml (100units/ml) SC SCH (21:44)
[2021-02-19 22:00] VITALS: BP 120/82
[2021-02-19] MEDS ORDERED: methylPREDNISolone SOD SUCC 40 MG/ML VL IV SCH (22:00)
[2021-02-20 05:00] VITALS: BP 131/102
[2021-02-20] MEDS: BUDESONIDE (INHALATION) 0.5 MG/2 ML NEB NEB SCH ×2 (06:10→20:30)
[2021-02-20] MEDS: LEVOTHYROXINE SODIUM 50 MCG TAB PO SCH (06:46)
[2021-02-20] MEDS: ACCU-CHEK COMFORT CURVE STRIP VI SCH ×4 (06:47→21:58)
[2021-02-20] MEDS: InsuLIN REG 1unit/0.01ml Soln (100units/ml) SC SCH ×4 (06:49→21:57)
[2021-02-20 09:00] VITALS: BP 137/99
[2021-02-20] MEDS: AMIODARONE HCL 200 MG TAB PO SCH (09:31)
[2021-02-20] MEDS: cefTRIAXone 1GM/50ML D5W 50 ML IV SCH (09:31)
[2021-02-20] MEDS: ASPirin 81 mg TAB PO SCH (09:31)
[2021-02-20] MEDS: NICOTINE 7MG/24HR TOPICAL PATCH TD SCH (09:32)
[2021-02-20] MEDS: ENOXAPARIN SOD 80 MG/0.8ML SYRINGE SC SCH (09:32)
[2021-02-20] MEDS: CARVEDILOL 3.125 MG TAB PO SCH ×2 (09:32→21:54)
[2021-02-20] MEDS: DOXYCYCLINE 100 MG TAB/CAP PO SCH ×2 (09:32→21:55)
[2021-02-20] MEDS: ISOSORBIDE MONONITRATE 20 MG TAB PO SCH ×2 (09:43→21:59)
[2021-02-20] MEDS: PANTOPRAZOLE 40 MG TAB PO SCH (09:44)
[2021-02-20 10:18] LABS: Basophils # (auto) 0 10 ^3/uL (0-0.2); Basophils % (auto) 0.1 % (0.0-2.0); Eosinophils # (auto) 0 10 ^3/uL (0-0.8); Hematocrit 38.8 % (41.0-53.0); Hemoglobin 12.3 g/dL (13.5-17.5); Lymphocytes # (auto) 0.5 10 ^3/uL (0.4-5.4); Lymphocytes % (auto) 3.8 % (10.0-50.0); Mean Corpuscular Hemoglobin 27.2 pg (28.0-32.0); Mean Corpuscular Hgb Conc. 31.7 g/dL (32.0-36.0); Mean Corpuscular Volume 85.5 fL (80.0-100.0); Monocytes # (auto) 0.5 10 ^3/uL (0-1.3); Monocytes % (auto) 3.6 % (0.0-12.0); Neutrophils # (auto) 12.9 10 ^3/uL (1.6-8.6); Neutrophils % (auto) 92.5 % (37.0-80.0); Nucleated Red Blood Cells % 0.1 %; Red Blood Cells 4.54 10^6/uL (4.5-5.90); Red Cell Distribution Width 18.4 % (11.8-14.3); White Blood Cell 13.9 10^3/uL (4.4-10.8)
[2021-02-20 10:23] LABS: Albumin 3.1 g/dL (3.4-5.0); Calcium 7.9 mg/dL (8.5-10.1); Potassium 3.6 mmol/L (3.5-5.1)
[2021-02-20 10:26] LABS: BUN/Creatinine Ratio 25.5; Bilirubin, Total 1.1 mg/dL (0.2-1.0); Total Protein 8.1 g/dL (6.4-8.2)
[2021-02-20 10:34] LABS: INR 1.54 (0.9-1.15)
[2021-02-20 13:00] VITALS: BP 106/74
[2021-02-20] MEDS: LORazepam 0.5 MG TAB PO PRN ×2 (14:19→20:31)
[2021-02-20 17:01] VITALS: BP 134/90
[2021-02-20] MEDS: IPRATROPIUM BROM 0.5 MG/2.5ML INH SOL NEB PRN (20:30)
[2021-02-20] MEDS: ALBUTEROL SULF 2.5 MG/0.5ML(0.5%) NEB SOLN NEB PRN (20:30)
[2021-02-20] MEDS: INSULIN LANTUS (GLARGINE) 1 /0.01ml (100units/ml) SC SCH (21:58)
[2021-02-20 22:00] VITALS: BP 123/96
[2021-02-20] MEDS ORDERED: SACUBITRIL-VALSARTAN 24mg/26mg TAB PO SCH (22:00)
[2021-02-21 05:00] VITALS: BP 130/97
[2021-02-21] MEDS: LEVOTHYROXINE SODIUM 100 MCG TAB PO SCH (06:33)
[2021-02-21] MEDS: ACCU-CHEK COMFORT CURVE STRIP VI SCH ×4 (06:33→21:09)
[2021-02-21] MEDS: InsuLIN REG 1unit/0.01ml Soln (100units/ml) SC SCH ×4 (06:34→21:10)
[2021-02-21 07:12] LABS: Basophils # (auto) 0.1 10 ^3/uL (0-0.2); Basophils % (auto) 0.4 % (0.0-2.0); Eosinophils # (auto) 0 10 ^3/uL (0-0.8); Hematocrit 40.2 % (41.0-53.0); Hemoglobin 12.7 g/dL (13.5-17.5); Mean Corpuscular Hgb Conc. 31.6 g/dL (32.0-36.0); Mean Corpuscular Volume 85.4 fL (80.0-100.0); Monocytes # (auto) 0.9 10 ^3/uL (0-1.3); Monocytes % (auto) 7.6 % (0.0-12.0); Neutrophils # (auto) 10.2 10 ^3/uL (1.6-8.6); Nucleated Red Blood Cells % 0.3 %; Red Blood Cells 4.71 10^6/uL (4.5-5.90); Red Cell Distribution Width 18.6 % (11.8-14.3); White Blood Cell 12.2 10^3/uL (4.4-10.8)
[2021-02-21 07:31] LABS: Protein, Urine 17.7 mg/dL (0.0-11.9)
[2021-02-21 07:41] LABS: INR 1.43 (0.9-1.15)
[2021-02-21 08:13] LABS: Urine Bacteria NONE SEEN /hpf (None Seen); Urine Blood Negative /uL (Negative); Urine Specific Gravity 1.015 (1.001-1.035); Urine WBC <1 /hpf (0 - 3)
[2021-02-21 09:00] VITALS: BP 131/82
[2021-02-21] MEDS: cefTRIAXone 1GM/50ML D5W 50 ML IV SCH (09:23)
[2021-02-21] MEDS: ASPirin 81 mg TAB PO SCH (09:24)
[2021-02-21] MEDS: FUROSEMIDE 40 MG/4 ML VIAL IV SCH (09:24)
[2021-02-21] MEDS: AMIODARONE HCL 200 MG TAB PO SCH (09:24)
[2021-02-21] MEDS: CARVEDILOL 3.125 MG TAB PO SCH ×2 (09:25→21:08)
[2021-02-21] MEDS: ISOSORBIDE MONONITRATE 20 MG TAB PO SCH ×2 (09:25→21:19)
[2021-02-21] MEDS: NICOTINE 7MG/24HR TOPICAL PATCH TD SCH (09:26)
[2021-02-21] MEDS: PANTOPRAZOLE 40 MG TAB PO SCH (09:26)
[2021-02-21] MEDS: ENOXAPARIN SOD 80 MG/0.8ML SYRINGE SC SCH (09:26)
[2021-02-21] MEDS: DOXYCYCLINE 100 MG TAB/CAP PO SCH ×2 (09:26→21:08)
[2021-02-21] MEDS: BUDESONIDE (INHALATION) 0.5 MG/2 ML NEB NEB SCH ×2 (10:24→18:48)
[2021-02-21] MEDS: ALBUTEROL SULF 2.5 MG/0.5ML(0.5%) NEB SOLN NEB PRN (10:24)
[2021-02-21] MEDS: IPRATROPIUM BROM 0.5 MG/2.5ML INH SOL NEB PRN (10:25)
[2021-02-21 11:01] LABS: BUN/Creatinine Ratio 26.9; Magnesium 2.1 mg/dL (1.6-2.6)
[2021-02-21 11:03] LABS: Potassium 3.7 mmol/L (3.5-5.1)
[2021-02-21 11:04] LABS: Bilirubin, Total 0.9 mg/dL (0.2-1.0); Total Protein 7.8 g/dL (6.4-8.2)
[2021-02-21] MEDS: ONDANSETRON HCL 4 MG/2 ML VIAL IV PRN (13:09)
[2021-02-21 17:00] VITALS: BP 123/82
[2021-02-21] MEDS: GABAPENTIN 100 MG CAP PO SCH (21:08)
[2021-02-21] MEDS: INSULIN LANTUS (GLARGINE) 1 /0.01ml (100units/ml) SC SCH (21:09)
[2021-02-21] MEDS: HYDROcodone-ACET 5/325MG TAB PO PRN (21:20)
[2021-02-21] MEDS: LORazepam 0.5 MG TAB PO PRN (21:20)
[2021-02-21 22:00] VITALS: BP 136/87
[2021-02-22 05:00] VITALS: BP 129/84
[2021-02-22] MEDS: LEVOTHYROXINE SODIUM 100 MCG TAB PO SCH (05:30)
[2021-02-22] MEDS: ACCU-CHEK COMFORT CURVE STRIP VI SCH ×4 (06:52→22:00)
[2021-02-22] MEDS: InsuLIN REG 1unit/0.01ml Soln (100units/ml) SC SCH ×4 (06:54→23:21)
[2021-02-22 07:20] LABS: Basophils # (auto) 0 10 ^3/uL (0-0.2); Basophils % (auto) 0.2 % (0.0-2.0); Eosinophils # (auto) 0.1 10 ^3/uL (0-0.8); Hematocrit 45.3 % (41.0-53.0); Hemoglobin 14.4 g/dL (13.5-17.5); Lymphocytes # (auto) 1.3 10 ^3/uL (0.4-5.4); Lymphocytes % (auto) 14.1 % (10.0-50.0); Mean Corpuscular Hemoglobin 27.8 pg (28.0-32.0); Mean Corpuscular Hgb Conc. 31.7 g/dL (32.0-36.0); Mean Corpuscular Volume 87.6 fL (80.0-100.0); Monocytes % (auto) 11.2 % (0.0-12.0); Neutrophils # (auto) 6.9 10 ^3/uL (1.6-8.6); Neutrophils % (auto) 73.5 % (37.0-80.0); Nucleated Red Blood Cells % 0.2 %; Red Blood Cells 5.17 10^6/uL (4.5-5.90); Red Cell Distribution Width 18.4 % (11.8-14.3); White Blood Cell 9.4 10^3/uL (4.4-10.8)
[2021-02-22 07:28] LABS: BUN/Creatinine Ratio 26.3; Calcium 8.4 mg/dL (8.5-10.1); Potassium 3.8 mmol/L (3.5-5.1)
[2021-02-22 09:00] VITALS: BP 139/87
[2021-02-22] MEDS: ASPirin 81 mg TAB PO SCH (09:48)
[2021-02-22] MEDS: FUROSEMIDE 40 MG/4 ML VIAL IV SCH (09:48)
[2021-02-22] MEDS: AMIODARONE HCL 200 MG TAB PO SCH (09:48)
[2021-02-22] MEDS: ISOSORBIDE MONONITRATE 20 MG TAB PO SCH ×2 (09:49→23:15)
[2021-02-22] MEDS: PANTOPRAZOLE 40 MG TAB PO SCH (09:49)
[2021-02-22] MEDS: GABAPENTIN 100 MG CAP PO SCH ×2 (09:49→23:16)
[2021-02-22] MEDS: CARVEDILOL 3.125 MG TAB PO SCH ×2 (09:49→23:16)
[2021-02-22] MEDS: DOXYCYCLINE 100 MG TAB/CAP PO SCH ×2 (09:50→23:17)
[2021-02-22] MEDS: ENOXAPARIN SOD 80 MG/0.8ML SYRINGE SC SCH ×2 (09:50→23:14)
[2021-02-22] MEDS: NICOTINE 7MG/24HR TOPICAL PATCH TD SCH (09:50)
[2021-02-22] MEDS: cefTRIAXone 1GM/50ML D5W 50 ML IV SCH (09:51)
[2021-02-22] MEDS: ALBUTEROL SULF 2.5 MG/0.5ML(0.5%) NEB SOLN NEB PRN ×2 (11:15→22:44)
[2021-02-22] MEDS: BUDESONIDE (INHALATION) 0.5 MG/2 ML NEB NEB SCH ×2 (11:15→22:43)
[2021-02-22] MEDS: IPRATROPIUM BROM 0.5 MG/2.5ML INH SOL NEB PRN ×2 (11:16→22:44)
[2021-02-22 13:00] VITALS: BP 138/108
[2021-02-22] MEDS: HYDROcodone-ACET 5/325MG TAB PO PRN ×2 (16:17→23:40)
[2021-02-22 17:00] VITALS: BP 107/55
[2021-02-22 22:00] VITALS: BP 102/68
[2021-02-22] MEDS: INSULIN LANTUS (GLARGINE) 1 /0.01ml (100units/ml) SC SCH (23:20)
[2021-02-23 05:00] VITALS: BP 133/85
[2021-02-23 05:32] LABS: BUN/Creatinine Ratio 26.8; Calcium 8.2 mg/dL (8.5-10.1); Potassium 3.5 mmol/L (3.5-5.1)
[2021-02-23] MEDS: ACCU-CHEK COMFORT CURVE STRIP VI SCH ×2 (06:20→12:19)
[2021-02-23] MEDS: InsuLIN REG 1unit/0.01ml Soln (100units/ml) SC SCH ×2 (06:21→14:10)
[2021-02-23] MEDS: LEVOTHYROXINE SODIUM 100 MCG TAB PO SCH (06:22)
[2021-02-23] MEDS: cefTRIAXone 1GM/50ML D5W 50 ML IV SCH (08:22)
[2021-02-23 08:25] VITALS: BP 129/73
[2021-02-23 08:30] VITALS: BP 129/73
[2021-02-23] MEDS: AMIODARONE HCL 200 MG TAB PO SCH ×2 (10:00→10:26)
[2021-02-23] MEDS: CARVEDILOL 3.125 MG TAB PO SCH (10:00)
[2021-02-23] MEDS: BUDESONIDE (INHALATION) 0.5 MG/2 ML NEB NEB SCH (10:00)
[2021-02-23] MEDS: FUROSEMIDE 40 MG/4 ML VIAL IV SCH (10:25)
[2021-02-23] MEDS: DOXYCYCLINE 100 MG TAB/CAP PO SCH (10:25)
[2021-02-23] MEDS: GABAPENTIN 100 MG CAP PO SCH (10:26)
[2021-02-23] MEDS: ASPirin 81 mg TAB PO SCH (10:26)
[2021-02-23] MEDS: PANTOPRAZOLE 40 MG TAB PO SCH (10:26)
[2021-02-23] MEDS: ENOXAPARIN SOD 80 MG/0.8ML SYRINGE SC SCH (10:27)
[2021-02-23] MEDS: NICOTINE 7MG/24HR TOPICAL PATCH TD SCH (10:27)
[2021-02-23 12:30] VITALS: BP 161/105
[2021-02-23] MEDS: ISOSORBIDE MONONITRATE 20 MG TAB PO SCH (14:40)
[2021-02-23] MEDS ORDERED: LEV100T PO (15:18)
[2021-02-23] MEDS ORDERED: DOXY-286 PO (15:18)
[2021-02-23] MEDS ORDERED: PANT40TA2 PO (15:18)
[2021-02-23] MEDS ORDERED: FURO1TAB31 PO (15:18)
[2021-02-23] MEDS ORDERED: CARV6.25 PO (15:18)
[2021-02-23] MEDS ORDERED: ISOS10TA45 PO (15:24)
[2021-02-23] MEDS ORDERED: HYDR50TA15 PO (15:24)
[2021-02-23] MEDS ORDERED: ISOS1TAB28 PO (15:43)
[2021-02-23 16:23] VITALS: BP 105/67
[2021-02-23 17:00] VITALS: BP 105/67
== END 2021-02-23 17:00 | disposition home or self-care (01) | DRG 194 ==
LOC: ER 20:37 → TELE 02-17 09:52 → TELE-CENTR 02-17 23:17
PROVIDERS: ADMIT Hospitalist; ATTEND Internal Medicine
PROC: 5A09357 Assistance with Respiratory Ventilation, Less than 24 Consecutive Hours, Continuous Positive Airway Pressure (ICD-10-PCS; principal; 2021-02-18)
PROC: 5A09357 Assistance with Respiratory Ventilation, Less than 24 Consecutive Hours, Continuous Positive Airway Pressure (ICD-10-PCS; 2021-02-20)
DX: I13.0 Hypertensive heart and chronic kidney disease with heart failure and stage 1 through stage 4 chronic kidney disease, or unspecified chronic kidney disease (principal); N17.0 Acute kidney failure with tubular necrosis; J96.21 Acute and chronic respiratory failure with hypoxia; J69.0 Pneumonitis due to inhalation of food and vomit; I21.A1 Myocardial infarction type 2; D68.9 Coagulation defect, unspecified; I27.20 Pulmonary hypertension, unspecified; D63.8 Anemia in other chronic diseases classified elsewhere; K76.1 Chronic passive congestion of liver; I50.43 Acute on chronic combined systolic (congestive) and diastolic (congestive) heart failure; D69.6 Thrombocytopenia, unspecified; I48.92 Unspecified atrial flutter; I47.1 Supraventricular tachycardia; J44.1 Chronic obstructive pulmonary disease with (acute) exacerbation; K21.9 Gastro-esophageal reflux disease without esophagitis; I16.9 Hypertensive crisis, unspecified; E03.9 Hypothyroidism, unspecified; E87.5 Hyperkalemia; F19.10 Other psychoactive substance abuse, uncomplicated; E11.22 Type 2 diabetes mellitus with diabetic chronic kidney disease; E78.5 Hyperlipidemia, unspecified; R79.89 Other specified abnormal findings of blood chemistry; F15.10 Other stimulant abuse, uncomplicated; F17.210 Nicotine dependence, cigarettes, uncomplicated; G47.33 Obstructive sleep apnea (adult) (pediatric); I42.7 Cardiomyopathy due to drug and external agent; E11.40 Type 2 diabetes mellitus with diabetic neuropathy, unspecified; Z20.822 Contact with and (suspected) exposure to COVID-19; I34.0 Nonrheumatic mitral (valve) insufficiency; I48.0 Paroxysmal atrial fibrillation; I50.82 Biventricular heart failure; I70.0 Atherosclerosis of aorta; J44.0 Chronic obstructive pulmonary disease with (acute) lower respiratory infection; N18.4 Chronic kidney disease, stage 4 (severe); T38.0X5A Adverse effect of glucocorticoids and synthetic analogues, initial encounter; Y92.89 Other specified places as the place of occurrence of the external cause; Z79.4 Long term (current) use of insulin; Z83.3 Family history of diabetes mellitus; Z86.16 Personal history of COVID-19; Z87.01 Personal history of pneumonia (recurrent); Z91.19 Patient's noncompliance with other medical treatment and regimen; Z91.14 Patient's other noncompliance with medication regimen; Z79.01 Long term (current) use of anticoagulants
CPT/HCPCS: 36415; 36600; 71045; 76775; 78582; 80048; 80053; 80307; 81001; 82306; 82570; 82805; 82962; 83036; 83735; 83880; 84100; 84156; 84300; 84439; 84443; 84484; 85025; 85379; 85610; 85730; 86703; 86706; 86803; 87040; 87081; 87086; 87340; 87426; 93005; 93970; 94640; 94660; 94762; 96374; 96375; G0378; J0696; J1815; J2405; J3490; J7060

== ENCOUNTER 2021-03-28 07:25 | Inpatient (IN) | payer OTHER ==
[~2021-03-28] VITALS: Ht 180.3 cm; Wt 79.1 kg
[~2021-03-28 07:25] MED LIST changes: +AMIO200T33 PO; +CARV6.25 PO; +FURO1TAB31 PO; -FURO1TAB33 PO; +ISOS1TAB28 PO; +LEV100T PO; -LEVO125T7 PO; -METO25TA5 PO; +PANT40TA2 PO
[2021-03-28] MEDS ORDERED: LORazepam 2MG/ML-1ML VIAL IV ONE ×2 (08:15→11:45)
[2021-03-28 08:20] LABS: Basophils # (auto) 0.1 10 ^3/uL (0-0.2); Basophils % (auto) 1.2 % (0.0-2.0); Eosinophils # (auto) 0.1 10 ^3/uL (0-0.8); Eosinophils % (auto) 1.3 % (0.0-7.0); Hematocrit 43.8 % (41.0-53.0); Hemoglobin 14.3 g/dL (13.5-17.5); Lymphocytes # (auto) 1.4 10 ^3/uL (0.4-5.4); Lymphocytes % (auto) 17.9 % (10.0-50.0); Mean Corpuscular Hemoglobin 27.9 pg (28.0-32.0); Mean Corpuscular Hgb Conc. 32.7 g/dL (32.0-36.0); Mean Corpuscular Volume 85.3 fL (80.0-100.0); Monocytes # (auto) 0.7 10 ^3/uL (0-1.3); Monocytes % (auto) 8.8 % (0.0-12.0); Neutrophils # (auto) 5.6 10 ^3/uL (1.6-8.6); Neutrophils % (auto) 70.8 % (37.0-80.0); Nucleated Red Blood Cells % 0.1 %; Red Blood Cells 5.14 10^6/uL (4.5-5.90); Red Cell Distribution Width 21.9 % (11.8-14.3); White Blood Cell 7.9 10^3/uL (4.4-10.8)
[2021-03-28 08:39] LABS: INR 1.08 (0.9-1.15); Partial Thromboplastin Time 23.7 sec (23.6-33.0)
[2021-03-28 08:58] LABS: Potassium 4.9 mmol/L (3.5-5.1)
[2021-03-28 09:42] LABS: Albumin 3.6 g/dL (3.4-5.0); BUN/Creatinine Ratio 15.2; Bilirubin, Total 1.5 mg/dL (0.2-1.0); Calcium 9.7 mg/dL (8.5-10.1); Magnesium 2.3 mg/dL (1.6-2.6); Total Protein 9.6 g/dL (6.4-8.2)
[2021-03-28] MEDS ORDERED: FUROSEMIDE 40 MG/4 ML VIAL IV ONE (10:00)
[2021-03-28] MEDS ORDERED: LABETALOL HCL 5 MG/ML 4ML SYRINGE IV ONE ×2 (10:00→19:00)
[2021-03-28] MEDS ORDERED: LORazepam 2MG/ML-1ML VIAL ONE (11:46)
[2021-03-28] MEDS ORDERED: LEVOTHYROXINE SODIUM 100 MCG/5 ML INJ IV ONE (13:15)
[2021-03-28 13:20] LABS: Urine Bacteria FEW /hpf (None Seen); Urine Blood Negative /uL (Negative); Urine Specific Gravity 1.019 (1.001-1.035); Urine WBC 1 /hpf (0 - 3)
[2021-03-28 13:40] LABS: Alcohol, Urine < 3.0 mg/dL (0-10); Amphetamine Screen, Urine POSITIVE (NEGATIVE); Barbiturate Scree,Urine NEGATIVE (NEGATIVE); Benzodiazephine Screen, Urine POSITIVE (NEGATIVE); Cannabinoid Screen, Urine NEGATIVE (NEGATIVE); Cocaine Screen, Urine NEGATIVE (NEGATIVE); Opiate Scree,Urine NEGATIVE (NEGATIVE); Phencyclidine Screen, Urine NEGATIVE (NEGATIVE)
[2021-03-28] MEDS ORDERED: NITROGLYCERIN 0.4 MG SL TAB SL PRN ×2 (19:00)
[2021-03-28] MEDS ORDERED: MORPHINE SULFATE INJECTION 2 MG/ML SYRG IV PRN ×2 (19:00)
[2021-03-28] MEDS ORDERED: LABETALOL HCL 5 MG/ML 4ML SYRINGE IV PRN (19:00)
[2021-03-28] MEDS ORDERED: METOPROLOL TARTRATE 1MG/1ML-5ML VIAL IV PRN (20:15)
[2021-03-28] MEDS ORDERED: LORazepam 2MG/ML-1ML VIAL IV PRN (20:15)
[2021-03-28] MEDS ORDERED: NIFEdipine ER 30 MG TAB PO ONE (20:15)
[2021-03-28 22:20] VITALS: BP 124/90
[2021-03-28 22:30] VITALS: BP 124/90
[2021-03-29 04:40] VITALS: BP 106/71
[2021-03-29] MEDS ORDERED: BUMETANIDE 2.5mg/10ml (0.25 mg/ml) INJ IV SCH (06:00)
[2021-03-29 06:34] LABS: Basophils # (auto) 0.1 10 ^3/uL (0-0.2); Basophils % (auto) 0.7 % (0.0-2.0); Eosinophils # (auto) 0 10 ^3/uL (0-0.8); Eosinophils % (auto) 0.3 % (0.0-7.0); Hematocrit 38.2 % (41.0-53.0); Hemoglobin 12.4 g/dL (13.5-17.5); Lymphocytes # (auto) 1.6 10 ^3/uL (0.4-5.4); Lymphocytes % (auto) 18.4 % (10.0-50.0); Mean Corpuscular Hgb Conc. 32.5 g/dL (32.0-36.0); Mean Corpuscular Volume 83.9 fL (80.0-100.0); Monocytes # (auto) 0.8 10 ^3/uL (0-1.3); Monocytes % (auto) 8.9 % (0.0-12.0); Neutrophils # (auto) 6.2 10 ^3/uL (1.6-8.6); Neutrophils % (auto) 71.7 % (37.0-80.0); Red Blood Cells 4.56 10^6/uL (4.5-5.90); White Blood Cell 8.6 10^3/uL (4.4-10.8)
[2021-03-29 06:40] LABS: INR 1.31 (0.9-1.15); Partial Thromboplastin Time 27.7 sec (23.6-33.0)
[2021-03-29] MEDS ORDERED: LEVOTHYROXINE SODIUM 100 MCG TAB PO ONE (06:45)
[2021-03-29 06:48] LABS: Mean Corpuscular Hemoglobin 27.3 pg (28.0-32.0); Red Cell Distribution Width 21.8 % (11.8-14.3)
[2021-03-29 06:51] LABS: Potassium 4.4 mmol/L (3.5-5.1)
[2021-03-29] MEDS ORDERED: LEVOTHYROXINE SODIUM 112 MCG TAB PO SCH (07:00)
[2021-03-29 07:03] LABS: Albumin 2.8 g/dL (3.4-5.0); BUN/Creatinine Ratio 19.2; Bilirubin, Total 2.1 mg/dL (0.2-1.0); Calcium 8.9 mg/dL (8.5-10.1); Magnesium 2.2 mg/dL (1.6-2.6); Phosphorus 4.8 mg/dL (2.5-4.90); Total Protein 7.7 g/dL (6.4-8.2)
[2021-03-29] MEDS ORDERED: BUMETANIDE 2.5mg/10ml (0.25 mg/ml) INJ IV ONE (07:15)
[2021-03-29] MEDS ORDERED: ALUM & MAG HYDROX-SIMETH LIQ(MAALOX) 30 ML PO PRN (07:15)
[2021-03-29] MEDS ORDERED: ACETAMINOPHEN 325 MG TAB PO PRN (07:15)
[2021-03-29] MEDS ORDERED: LORazepam 0.5 MG TAB PO PRN (07:15)
[2021-03-29] MEDS ORDERED: MORPHINE SULFATE INJECTION 2 MG/ML SYRG IV PRN ×2 (07:15)
[2021-03-29] MEDS ORDERED: DEXTROSE (50%) 50ML SYRG IV PRN (07:15)
[2021-03-29] MEDS ORDERED: DOCUSATE SOD 100 MG CAP PO PRN (07:15)
[2021-03-29] MEDS ORDERED: HYDROcodone-ACET 5/325MG TAB PO PRN (07:15)
[2021-03-29] MEDS ORDERED: NITROGLYCERIN 0.4 MG SL TAB SL PRN (07:15)
[2021-03-29 09:00] VITALS: BP 107/65
[2021-03-29] MEDS ORDERED: NIFEdipine ER 30 MG TAB PO SCH (10:00)
[2021-03-29] MEDS: AMIODARONE HCL 200 MG TAB PO SCH (10:33)
[2021-03-29] MEDS: CARVEDILOL 3.125 MG TAB PO SCH ×2 (10:34→22:00)
[2021-03-29] MEDS: APIXABAN 5 MG TAB PO SCH ×2 (10:34→22:22)
[2021-03-29] MEDS: ASPirin-EC 81 mg tab PO SCH (10:34)
[2021-03-29] MEDS: NICOTINE 21MG/24 HR TOPICAL PATCH TD SCH (10:36)
[2021-03-29] MEDS ORDERED: ACETAMINOPHEN 500 MG TAB PO PRN (11:00)
[2021-03-29] MEDS ORDERED: REMDESIVIR PER PHARMACY 0 ML IV SCH (11:00)
[2021-03-29] MEDS: ACCU-CHEK COMFORT CURVE STRIP VI SCH ×3 (11:30→22:22)
[2021-03-29 13:00] VITALS: BP 92/59
[2021-03-29] MEDS: DOXYCYCLINE 100MG/250ML 250 ML IV SCH ×2 (13:16→23:00)
[2021-03-29] MEDS: InsuLIN REG 1unit/0.01ml Soln (100units/ml) SC SCH ×3 (13:19→22:24)
[2021-03-29] MEDS ORDERED: REMDESIVIR 200 MG in NS 210ml LOADING DOSE ADULT IV ONE (15:00)
[2021-03-29] MEDS: METOCLOPRAMIDE HCL 5MG/ml INJ 2ml VIAL IV PRN ×2 (15:48→20:26)
[2021-03-29 16:59] VITALS: BP 95/68
[2021-03-29] MEDS ORDERED: ALBUMIN 25% 100 ML IV ONE (17:45)
[2021-03-29] MEDS ORDERED: PANTOPRAZOLE 40 MG/10 ML VIAL INJ IV ONE (17:45)
[2021-03-29] MEDS: BUMETANIDE 2.5mg/10ml (0.25 mg/ml) INJ IV SCH (18:00)
[2021-03-29 22:00] VITALS: BP 82/41
[2021-03-29] MEDS: ATORVASTATIN 20 MG TAB PO SCH (22:22)
[2021-03-29] MEDS ORDERED: ALBUMIN 5% 250 ML IV ONE (23:00)
[2021-03-30] VITALS (42 sets, daily range): BP systolic 79–134; BP diastolic 44–76
[2021-03-30] MEDS ORDERED: NOREPINEPHRINE 8 MG/250ML KIT 250 ML IV ONE (02:51)
[2021-03-30] MEDS ORDERED: SUCCINYLCHOLINE CHLORIDE 20 MG/ML 10ML VIAL IV ONE ×2 (03:08→03:30)
[2021-03-30] MEDS ORDERED: ETOMIDATE (2MG/ML) 20ML VIAL IV ONE ×2 (03:09→03:30)
[2021-03-30] MEDS ORDERED: DOPamine 1600MCG/ML D5W 250 ML IV ONE (03:28)
[2021-03-30] MEDS ORDERED: ACETAMINOPHEN 650 mg PER 20.3 mL UD GT PRN (03:30)
[2021-03-30 05:05] LABS: Hematocrit 37.9 % (41.0-53.0); Hemoglobin 12.2 g/dL (13.5-17.5); Mean Corpuscular Hemoglobin 27.8 pg (28.0-32.0); Mean Corpuscular Hgb Conc. 32.1 g/dL (32.0-36.0); Mean Corpuscular Volume 86.6 fL (80.0-100.0); Red Blood Cells 4.37 10^6/uL (4.5-5.90); White Blood Cell 13.1 10^3/uL (4.4-10.8)
[2021-03-30 05:18] LABS: Albumin 3.4 g/dL (3.4-5.0); Calcium 8.4 mg/dL (8.5-10.1)
[2021-03-30 05:25] LABS: Red Cell Distribution Width 21.9 % (11.8-14.3)
[2021-03-30 05:26] LABS: Basophils % (manual) 0 (0.0-2.0); Blast Cells 0; Metamyelocytes % 0; Promyelocytes % 0; Reactive Lymphocytes 0
[2021-03-30 05:27] LABS: INR 1.86 (0.9-1.15); Partial Thromboplastin Time 35.2 sec (23.6-33.0)
[2021-03-30 05:33] LABS: BUN/Creatinine Ratio 16.9; Bilirubin, Total 2.3 mg/dL (0.2-1.0); Total Protein 7.6 g/dL (6.4-8.2)
[2021-03-30] MEDS: BUMETANIDE 2.5mg/10ml (0.25 mg/ml) INJ IV SCH ×2 (06:00→18:00)
[2021-03-30] MEDS ORDERED: DEXTROSE (50%) 50ML SYRG IV ONE ×3 (06:45→18:46)
[2021-03-30] MEDS ORDERED: InsuLIN REG 1unit/0.01ml Soln (100units/ml) IV ONE ×2 (06:45→12:00)
[2021-03-30] MEDS ORDERED: ALBUTEROL SULF 2.5 MG/0.5ML(0.5%) NEB SOLN NEB ONE ×2 (06:45→12:00)
[2021-03-30] MEDS ORDERED: CALCIUM GLUC 1,000mg/50ml-NS 50 ML IV ONE ×3 (06:45→12:00)
[2021-03-30] MEDS ORDERED: SODIUM BICARBONATE 8.4% INJ 50ML SYRINGE IV ONE ×3 (06:45→18:46)
[2021-03-30] MEDS ORDERED: SODIUM ZIRCONIUM CYCL 10 GM PAK PO ONE (06:45)
[2021-03-30] MEDS: InsuLIN REG 1unit/0.01ml Soln (100units/ml) SC SCH ×4 (07:00→22:52)
[2021-03-30] MEDS: LEVOTHYROXINE SODIUM 112 MCG TAB PO SCH (07:00)
[2021-03-30] MEDS: ACCU-CHEK COMFORT CURVE STRIP VI SCH ×4 (07:00→22:00)
[2021-03-30 07:12] LABS: Band Neutrophils % (manual) 11; Eosinophils % (manual) 1 (0-7); Lymphocytes % (manual) 14 (10.0-50.0); Monocytes % (manual) 8 (0-12); Myelocytes % 13
[2021-03-30] MEDS: MIDAZOLAM DRIP 50 mg/50mL 50 ML IV SCH ×3 (07:51→22:55)
[2021-03-30] MEDS ORDERED: fentaNYL Drip 2500mCg/250mlNS 250 ML IV ONE (09:15)
[2021-03-30] MEDS: NOREPINEPHRINE 8 MG/250ML KIT 250 ML IV SCH (09:48)
[2021-03-30] MEDS: AMIODARONE HCL 200 MG TAB PO SCH (10:00)
[2021-03-30] MEDS: NICOTINE 21MG/24 HR TOPICAL PATCH TD SCH (10:00)
[2021-03-30] MEDS: DOXYCYCLINE 100MG/250ML 250 ML IV SCH ×2 (11:00→22:54)
[2021-03-30] MEDS: CHOLECALCIFEROL (VITD3) 2,000 UNIT CAP/TAB PO SCH (11:04)
[2021-03-30] MEDS: ASCORBIC ACID 1,000 MG TAB PO SCH (11:05)
[2021-03-30] MEDS: IVERMECTIN 3 MG TAB PO SCH (11:05)
[2021-03-30] MEDS: ASPirin-EC 81 mg tab PO SCH (11:05)
[2021-03-30] MEDS: APIXABAN 5 MG TAB PO SCH ×2 (11:05→22:50)
[2021-03-30] MEDS: DexAMETHasone SOD PHOS 10MG/1ML VIAL INJ IV SCH (11:06)
[2021-03-30] MEDS ORDERED: FUROSEMIDE 40 MG/4 ML VIAL IV ONE (12:00)
[2021-03-30] MEDS: SODIUM BICARBONATE 50ML VIAL 150 ML in D5W 5% 1,000 ML IV SCH ×2 (13:00→22:54)
[2021-03-30] MEDS ORDERED: REMDESIVIR 100mg 100 MG in SODIUM CHL 0.9% 230 ML IV SCH (15:00)
[2021-03-30 15:13] LABS: BUN/Creatinine Ratio 18.3; Calcium 8.8 mg/dL (8.5-10.1)
[2021-03-30 15:54] LABS: Potassium 5.9 mmol/L (3.5-5.1)
[2021-03-30] MEDS ORDERED: SODIUM BICARBONATE 8.4 % INJ 50ML VIAL IV ONE (16:00)
[2021-03-30] MEDS: DOBUTamine 1000MCG/ML 250 ML IV SCH (16:00)
[2021-03-30] MEDS: DOPamine 1600MCG/ML D5W 250 ML IV SCH ×2 (16:00→22:50)
[2021-03-30] MEDS ORDERED: EPINEPHrine HCL 1 MG/10 ML SYRG IV ONE (18:46)
[2021-03-30] MEDS ORDERED: ATROPINE SULF 1 MG/10ml SYR IM ONE (18:46)
[2021-03-30 21:57] LABS: Anion Gap 12 (5-15); BUN/Creatinine Ratio 17.6; Blood Urea Nitrogen 72 mg/dL (7-18); Calcium 7.9 mg/dL (8.5-10.1); Carbon Dioxide 17 mmol/L (21-32); Chloride 102 mmol/L (98-107); GFR African American 19 mL/min; GFR Non-African American 16 mL/min; Glucose 230 mg/dL (74-106); Sodium 131 mmol/L (136-145)
[2021-03-30 22:19] LABS: Potassium 5.9 mmol/L (3.5-5.1)
[2021-03-30] MEDS: ATORVASTATIN 20 MG TAB PO SCH (22:50)
[2021-03-31] VITALS (73 sets, daily range): BP systolic 87–110; BP diastolic 50–71
[2021-03-31] MEDS: DOBUTamine 1000MCG/ML 250 ML IV SCH ×3 (02:03→22:09)
[2021-03-31] MEDS: NOREPINEPHRINE 8 MG/250ML KIT 250 ML IV SCH ×2 (05:58→17:12)
[2021-03-31] MEDS: fentaNYL Drip 2500mCg/250mlNS 250 ML IV SCH (06:00)
[2021-03-31] MEDS: BUMETANIDE 2.5mg/10ml (0.25 mg/ml) INJ IV SCH ×2 (06:01→18:08)
[2021-03-31] MEDS: ACCU-CHEK COMFORT CURVE STRIP VI SCH ×4 (06:01→22:26)
[2021-03-31] MEDS: LEVOTHYROXINE SODIUM 112 MCG TAB PO SCH (06:01)
[2021-03-31] MEDS: InsuLIN REG 1unit/0.01ml Soln (100units/ml) SC SCH ×4 (06:28→22:00)
[2021-03-31 07:09] LABS: Basophils # (auto) 0 10 ^3/uL (0-0.2); Basophils % (auto) 0.3 % (0.0-2.0); Eosinophils # (auto) 0 10 ^3/uL (0-0.8); Hemoglobin 11.8 g/dL (13.5-17.5); Lymphocytes # (auto) 0.7 10 ^3/uL (0.4-5.4); Mean Corpuscular Hgb Conc. 33.7 g/dL (32.0-36.0); Mean Corpuscular Volume 83.1 fL (80.0-100.0); Monocytes # (auto) 0.6 10 ^3/uL (0-1.3); Monocytes % (auto) 5.3 % (0.0-12.0); Neutrophils # (auto) 9.2 10 ^3/uL (1.6-8.6); Neutrophils % (auto) 87.4 % (37.0-80.0); Nucleated Red Blood Cells % 0.1 %; Red Blood Cells 4.21 10^6/uL (4.5-5.90); White Blood Cell 10.5 10^3/uL (4.4-10.8)
[2021-03-31 07:33] LABS: Potassium 4.6 mmol/L (3.5-5.1)
[2021-03-31 08:03] LABS: Albumin 3.1 g/dL (3.4-5.0); BUN/Creatinine Ratio 19.3; Bilirubin, Total 1.4 mg/dL (0.2-1.0); Calcium 8.1 mg/dL (8.5-10.1); Total Protein 7.2 g/dL (6.4-8.2)
[2021-03-31] MEDS: DexAMETHasone SOD PHOS 10MG/1ML VIAL INJ IV SCH (09:51)
[2021-03-31] MEDS: AMIODARONE HCL 200 MG TAB PO SCH (09:52)
[2021-03-31] MEDS: CHOLECALCIFEROL (VITD3) 2,000 UNIT CAP/TAB PO SCH (09:52)
[2021-03-31] MEDS: ASCORBIC ACID 1,000 MG TAB PO SCH (09:52)
[2021-03-31] MEDS: APIXABAN 5 MG TAB PO SCH ×2 (09:52→22:25)
[2021-03-31] MEDS: ASPirin-EC 81 mg tab PO SCH (09:52)
[2021-03-31] MEDS: IVERMECTIN 3 MG TAB PO SCH (09:52)
[2021-03-31] MEDS: NICOTINE 21MG/24 HR TOPICAL PATCH TD SCH (09:53)
[2021-03-31] MEDS: DOXYCYCLINE 100MG/250ML 250 ML IV SCH ×2 (09:53→22:26)
[2021-03-31] MEDS ORDERED: PANTOPRAZOLE 40 MG/10 ML VIAL INJ IV ONE (16:45)
[2021-03-31] MEDS ORDERED: Glucerna 1.2 Cal 1Liter BOTTLE GT SCH (19:00)
[2021-03-31] MEDS: ATORVASTATIN 20 MG TAB PO SCH (22:25)
[2021-03-31] MEDS: MIDAZOLAM DRIP 50 mg/50mL 50 ML IV SCH (22:27)
[2021-04-01] VITALS (68 sets, daily range): BP systolic 93–112; BP diastolic 51–73
[2021-04-01] MEDS: fentaNYL Drip 2500mCg/250mlNS 250 ML IV SCH ×2 (03:15→06:20)
[2021-04-01] MEDS: NOREPINEPHRINE 8 MG/250ML KIT 250 ML IV SCH ×2 (03:30→06:18)
[2021-04-01] MEDS: BUMETANIDE 2.5mg/10ml (0.25 mg/ml) INJ IV SCH (06:17)
[2021-04-01] MEDS: LEVOTHYROXINE SODIUM 112 MCG TAB PO SCH (06:17)
[2021-04-01] MEDS: ACCU-CHEK COMFORT CURVE STRIP VI SCH ×4 (06:18→22:00)
[2021-04-01] MEDS: InsuLIN REG 1unit/0.01ml Soln (100units/ml) SC SCH ×4 (06:18→22:00)
[2021-04-01] MEDS: MIDAZOLAM DRIP 50 mg/50mL 50 ML IV SCH ×2 (06:19→10:19)
[2021-04-01 06:48] LABS: Albumin 2.8 g/dL (3.4-5.0); Calcium 7.3 mg/dL (8.5-10.1); Potassium 4.5 mmol/L (3.5-5.1)
[2021-04-01 06:52] LABS: BUN/Creatinine Ratio 21.2; Bilirubin, Total 1.1 mg/dL (0.2-1.0); Total Protein 6.6 g/dL (6.4-8.2)
[2021-04-01] MEDS: DOBUTamine 1000MCG/ML 250 ML IV SCH ×2 (08:12→17:13)
[2021-04-01] MEDS: PANTOPRAZOLE 40 MG/10 ML VIAL INJ IV SCH (10:00)
[2021-04-01] MEDS: DexAMETHasone SOD PHOS 10MG/1ML VIAL INJ IV SCH (10:16)
[2021-04-01] MEDS: ASCORBIC ACID 1,000 MG TAB PO SCH (10:17)
[2021-04-01] MEDS: AMIODARONE HCL 200 MG TAB PO SCH (10:17)
[2021-04-01] MEDS: ASPirin-EC 81 mg tab PO SCH (10:17)
[2021-04-01] MEDS: APIXABAN 5 MG TAB PO SCH (10:17)
[2021-04-01] MEDS: IVERMECTIN 3 MG TAB PO SCH (10:17)
[2021-04-01] MEDS: NICOTINE 21MG/24 HR TOPICAL PATCH TD SCH (10:18)
[2021-04-01] MEDS: CHOLECALCIFEROL (VITD3) 2,000 UNIT CAP/TAB PO SCH (10:18)
[2021-04-01] MEDS: DOXYCYCLINE 100MG/250ML 250 ML IV SCH ×2 (10:20→22:45)
[2021-04-01] MEDS: FUROSEMIDE 40 MG/4 ML VIAL IV SCH (10:33)
[2021-04-01] MEDS: ATORVASTATIN 20 MG TAB PO SCH (22:44)
[2021-04-01] MEDS: APIXABAN 2.5 MG TAB PO SCH (22:44)
[2021-04-02] VITALS (71 sets, daily range): BP systolic 100–128; BP diastolic 63–81
[2021-04-02] MEDS: DOBUTamine 1000MCG/ML 250 ML IV SCH ×2 (04:18→14:21)
[2021-04-02] MEDS: InsuLIN REG 1unit/0.01ml Soln (100units/ml) SC SCH ×4 (05:53→21:36)
[2021-04-02] MEDS: ACCU-CHEK COMFORT CURVE STRIP VI SCH ×4 (05:53→21:36)
[2021-04-02] MEDS: LEVOTHYROXINE SODIUM 112 MCG TAB PO SCH (05:53)
[2021-04-02] MEDS: fentaNYL Drip 2500mCg/250mlNS 250 ML IV SCH (05:57)
[2021-04-02] MEDS: MIDAZOLAM DRIP 50 mg/50mL 50 ML IV SCH ×2 (05:59→23:07)
[2021-04-02 07:43] LABS: Basophils # (auto) 0 10 ^3/uL (0-0.2); Basophils % (auto) 0.2 % (0.0-2.0); Eosinophils # (auto) 0 10 ^3/uL (0-0.8); Hematocrit 33.8 % (41.0-53.0); Lymphocytes # (auto) 0.6 10 ^3/uL (0.4-5.4); Lymphocytes % (auto) 7.1 % (10.0-50.0); Mean Corpuscular Hemoglobin 27.3 pg (28.0-32.0); Mean Corpuscular Hgb Conc. 32.7 g/dL (32.0-36.0); Mean Corpuscular Volume 83.4 fL (80.0-100.0); Monocytes # (auto) 0.4 10 ^3/uL (0-1.3); Monocytes % (auto) 5.5 % (0.0-12.0); Neutrophils % (auto) 87.2 % (37.0-80.0); Nucleated Red Blood Cells % 0.1 %; Red Blood Cells 4.05 10^6/uL (4.5-5.90)
[2021-04-02 08:10] LABS: Potassium 4.3 mmol/L (3.5-5.1)
[2021-04-02 08:16] LABS: Albumin 2.9 g/dL (3.4-5.0); BUN/Creatinine Ratio 24.4; Calcium 7.3 mg/dL (8.5-10.1); Total Protein 6.6 g/dL (6.4-8.2)
[2021-04-02] MEDS: CHOLECALCIFEROL (VITD3) 2,000 UNIT CAP/TAB PO SCH (10:00)
[2021-04-02] MEDS: DexAMETHasone SOD PHOS 10MG/1ML VIAL INJ IV SCH (10:13)
[2021-04-02] MEDS: IVERMECTIN 3 MG TAB PO SCH (10:14)
[2021-04-02] MEDS: AMIODARONE HCL 200 MG TAB PO SCH (10:14)
[2021-04-02] MEDS: ASPirin-EC 81 mg tab PO SCH (10:14)
[2021-04-02] MEDS: FUROSEMIDE 40 MG/4 ML VIAL IV SCH (10:14)
[2021-04-02] MEDS: PANTOPRAZOLE 40 MG/10 ML VIAL INJ IV SCH (10:14)
[2021-04-02] MEDS: APIXABAN 2.5 MG TAB PO SCH ×2 (10:14→21:35)
[2021-04-02] MEDS: NICOTINE 21MG/24 HR TOPICAL PATCH TD SCH (10:15)
[2021-04-02] MEDS: ASCORBIC ACID 1,000 MG TAB PO SCH (10:15)
[2021-04-02] MEDS: DOXYCYCLINE 100MG/250ML 250 ML IV SCH ×2 (11:00→22:54)
[2021-04-02] MEDS: ATORVASTATIN 20 MG TAB PO SCH (21:35)
[2021-04-03] VITALS (27 sets, daily range): BP systolic 121–157; BP diastolic 68–94
[2021-04-03] MEDS: DOBUTamine 1000MCG/ML 250 ML IV SCH (00:24)
[2021-04-03] MEDS: NOREPINEPHRINE 8 MG/250ML KIT 250 ML IV SCH (03:30)
[2021-04-03] MEDS: ACCU-CHEK COMFORT CURVE STRIP VI SCH ×4 (05:36→22:00)
[2021-04-03] MEDS: LEVOTHYROXINE SODIUM 112 MCG TAB PO SCH (05:36)
[2021-04-03] MEDS: InsuLIN REG 1unit/0.01ml Soln (100units/ml) SC SCH ×4 (05:36→22:30)
[2021-04-03] MEDS: PANTOPRAZOLE 40 MG/10 ML VIAL INJ IV SCH (10:00)
[2021-04-03] MEDS: DexAMETHasone SOD PHOS 10MG/1ML VIAL INJ IV SCH (10:00)
[2021-04-03] MEDS: APIXABAN 2.5 MG TAB PO SCH ×2 (10:00→22:28)
[2021-04-03] MEDS: NICOTINE 21MG/24 HR TOPICAL PATCH TD SCH (10:00)
[2021-04-03] MEDS: ASPirin-EC 81 mg tab PO SCH (10:00)
[2021-04-03] MEDS: CHOLECALCIFEROL (VITD3) 2,000 UNIT CAP/TAB PO SCH (10:00)
[2021-04-03] MEDS: ASCORBIC ACID 1,000 MG TAB PO SCH (10:00)
[2021-04-03] MEDS: AMIODARONE HCL 200 MG TAB PO SCH (10:00)
[2021-04-03] MEDS: DOXYCYCLINE 100MG/250ML 250 ML IV SCH ×2 (11:00→22:31)
[2021-04-03 12:47] LABS: Basophils # (auto) 0 10 ^3/uL (0-0.2); Basophils % (auto) 0.3 % (0.0-2.0); Eosinophils # (auto) 0 10 ^3/uL (0-0.8); Hematocrit 37.1 % (41.0-53.0); Hemoglobin 12.3 g/dL (13.5-17.5); Lymphocytes # (auto) 0.5 10 ^3/uL (0.4-5.4); Lymphocytes % (auto) 4.7 % (10.0-50.0); Mean Corpuscular Hemoglobin 27.6 pg (28.0-32.0); Mean Corpuscular Volume 83.6 fL (80.0-100.0); Monocytes # (auto) 0.9 10 ^3/uL (0-1.3); Monocytes % (auto) 8.7 % (0.0-12.0); Neutrophils # (auto) 8.6 10 ^3/uL (1.6-8.6); Neutrophils % (auto) 86.3 % (37.0-80.0); Nucleated Red Blood Cells % 0.2 %; Red Blood Cells 4.44 10^6/uL (4.5-5.90)
[2021-04-03 12:58] LABS: Red Cell Distribution Width 22.1 % (11.8-14.3)
[2021-04-03 13:09] LABS: BUN/Creatinine Ratio 28.4; Calcium 8.3 mg/dL (8.5-10.1)
[2021-04-03] MEDS: IVERMECTIN 3 MG TAB PO SCH (13:39)
[2021-04-03] MEDS: ATORVASTATIN 20 MG TAB PO SCH (22:28)
[2021-04-04] VITALS (22 sets, daily range): BP systolic 113–160; BP diastolic 63–92
[2021-04-04] MEDS: MIDAZOLAM DRIP 50 mg/50mL 50 ML IV SCH (01:31)
[2021-04-04] MEDS: fentaNYL Drip 2500mCg/250mlNS 250 ML IV SCH (03:15)
[2021-04-04] MEDS: NOREPINEPHRINE 8 MG/250ML KIT 250 ML IV SCH (03:30)
[2021-04-04] MEDS: ACCU-CHEK COMFORT CURVE STRIP VI SCH ×4 (05:45→22:00)
[2021-04-04] MEDS: InsuLIN REG 1unit/0.01ml Soln (100units/ml) SC SCH ×4 (05:45→22:41)
[2021-04-04] MEDS: LEVOTHYROXINE SODIUM 112 MCG TAB PO SCH (05:45)
[2021-04-04 05:55] LABS: BUN/Creatinine Ratio 33.8; Calcium 8.8 mg/dL (8.5-10.1); Potassium 3.9 mmol/L (3.5-5.1)
[2021-04-04] MEDS: DexAMETHasone SOD PHOS 10MG/1ML VIAL INJ IV SCH (09:27)
[2021-04-04] MEDS: PANTOPRAZOLE 40 MG/10 ML VIAL INJ IV SCH (09:28)
[2021-04-04] MEDS: AMIODARONE HCL 200 MG TAB PO SCH (09:28)
[2021-04-04] MEDS: APIXABAN 2.5 MG TAB PO SCH ×2 (09:29→22:38)
[2021-04-04] MEDS: ASCORBIC ACID 1,000 MG TAB PO SCH (09:29)
[2021-04-04] MEDS: ASPirin-EC 81 mg tab PO SCH (09:29)
[2021-04-04] MEDS: CHOLECALCIFEROL (VITD3) 2,000 UNIT CAP/TAB PO SCH (09:29)
[2021-04-04] MEDS: NICOTINE 21MG/24 HR TOPICAL PATCH TD SCH (09:30)
[2021-04-04] MEDS: DOXYCYCLINE 100MG/250ML 250 ML IV SCH ×2 (11:00→22:41)
[2021-04-04] MEDS: SOD CHL 0.45% 1,000 ML IV SCH ×2 (11:15→22:38)
[2021-04-04] MEDS: ATORVASTATIN 20 MG TAB PO SCH (22:39)
[2021-04-05] VITALS (18 sets, daily range): BP systolic 93–155; BP diastolic 55–91
[2021-04-05] MEDS: fentaNYL Drip 2500mCg/250mlNS 250 ML IV SCH (03:15)
[2021-04-05] MEDS: MIDAZOLAM DRIP 50 mg/50mL 50 ML IV SCH (03:30)
[2021-04-05] MEDS: NOREPINEPHRINE 8 MG/250ML KIT 250 ML IV SCH (03:30)
[2021-04-05 03:58] LABS: Basophils # (auto) 0 10 ^3/uL (0-0.2); Basophils % (auto) 0.4 % (0.0-2.0); Eosinophils # (auto) 0 10 ^3/uL (0-0.8); Hematocrit 34.9 % (41.0-53.0); Hemoglobin 11.5 g/dL (13.5-17.5); Lymphocytes # (auto) 0.7 10 ^3/uL (0.4-5.4); Lymphocytes % (auto) 6.3 % (10.0-50.0); Mean Corpuscular Hemoglobin 27.3 pg (28.0-32.0); Mean Corpuscular Hgb Conc. 32.9 g/dL (32.0-36.0); Mean Corpuscular Volume 83.2 fL (80.0-100.0); Monocytes # (auto) 1.1 10 ^3/uL (0-1.3); Monocytes % (auto) 10.4 % (0.0-12.0); Neutrophils # (auto) 8.9 10 ^3/uL (1.6-8.6); Neutrophils % (auto) 82.9 % (37.0-80.0); Nucleated Red Blood Cells % 0.1 %; White Blood Cell 10.7 10^3/uL (4.4-10.8)
[2021-04-05 04:15] LABS: Potassium 4.6 mmol/L (3.5-5.1)
[2021-04-05 04:16] LABS: Albumin 2.1 g/dL (3.4-5.0); Calcium 7.2 mg/dL (8.5-10.1)
[2021-04-05 04:18] LABS: Total Protein 6.9 g/dL (6.4-8.2)
[2021-04-05] MEDS: LEVOTHYROXINE SODIUM 112 MCG TAB PO SCH (06:27)
[2021-04-05] MEDS: ACCU-CHEK COMFORT CURVE STRIP VI SCH ×4 (06:27→22:00)
[2021-04-05] MEDS: InsuLIN REG 1unit/0.01ml Soln (100units/ml) SC SCH ×4 (06:28→19:28)
[2021-04-05] MEDS: SOD CHL 0.45% 1,000 ML IV SCH ×3 (07:15→20:21)
[2021-04-05] MEDS: CHOLECALCIFEROL (VITD3) 2,000 UNIT CAP/TAB PO SCH (09:26)
[2021-04-05] MEDS: ASCORBIC ACID 1,000 MG TAB PO SCH (09:26)
[2021-04-05] MEDS: NICOTINE 21MG/24 HR TOPICAL PATCH TD SCH (09:26)
[2021-04-05] MEDS: ASPirin-EC 81 mg tab PO SCH (09:26)
[2021-04-05] MEDS: APIXABAN 2.5 MG TAB PO SCH ×2 (09:28→22:46)
[2021-04-05] MEDS: PANTOPRAZOLE 40 MG/10 ML VIAL INJ IV SCH (09:28)
[2021-04-05] MEDS: AMIODARONE HCL 200 MG TAB PO SCH (09:28)
[2021-04-05] MEDS: DexAMETHasone SOD PHOS 10MG/1ML VIAL INJ IV SCH (09:28)
[2021-04-05] MEDS: DOXYCYCLINE 100MG/250ML 250 ML IV SCH ×2 (11:00→23:00)
[2021-04-05] MEDS: ATORVASTATIN 20 MG TAB PO SCH (22:46)
[2021-04-06] VITALS (18 sets, daily range): BP systolic 85–153; BP diastolic 55–94
[2021-04-06] MEDS: fentaNYL Drip 2500mCg/250mlNS 250 ML IV SCH (03:15)
[2021-04-06] MEDS: MIDAZOLAM DRIP 50 mg/50mL 50 ML IV SCH (03:30)
[2021-04-06] MEDS: NOREPINEPHRINE 8 MG/250ML KIT 250 ML IV SCH (03:30)
[2021-04-06 05:39] LABS: Basophils # (auto) 0 10 ^3/uL (0-0.2); Basophils % (auto) 0.3 % (0.0-2.0); Eosinophils # (auto) 0 10 ^3/uL (0-0.8); Hematocrit 33.6 % (41.0-53.0); Lymphocytes # (auto) 0.7 10 ^3/uL (0.4-5.4); Lymphocytes % (auto) 8.1 % (10.0-50.0); Mean Corpuscular Hemoglobin 27.3 pg (28.0-32.0); Mean Corpuscular Hgb Conc. 32.7 g/dL (32.0-36.0); Mean Corpuscular Volume 83.5 fL (80.0-100.0); Monocytes # (auto) 0.7 10 ^3/uL (0-1.3); Monocytes % (auto) 8.2 % (0.0-12.0); Neutrophils # (auto) 7.1 10 ^3/uL (1.6-8.6); Neutrophils % (auto) 83.4 % (37.0-80.0); Red Blood Cells 4.03 10^6/uL (4.5-5.90); Red Cell Distribution Width 21.6 % (11.8-14.3); White Blood Cell 8.5 10^3/uL (4.4-10.8)
[2021-04-06] MEDS: InsuLIN REG 1unit/0.01ml Soln (100units/ml) SC SCH ×4 (06:00→22:00)
[2021-04-06] MEDS: ACCU-CHEK COMFORT CURVE STRIP VI SCH ×4 (06:01→23:13)
[2021-04-06] MEDS: LEVOTHYROXINE SODIUM 112 MCG TAB PO SCH (06:01)
[2021-04-06 06:05] LABS: Calcium 8.9 mg/dL (8.5-10.1); Potassium 3.8 mmol/L (3.5-5.1)
[2021-04-06 06:10] LABS: Albumin 2.7 g/dL (3.4-5.0); BUN/Creatinine Ratio 40.6; Bilirubin, Total 1.2 mg/dL (0.2-1.0); Total Protein 6.6 g/dL (6.4-8.2)
[2021-04-06] MEDS: CHOLECALCIFEROL (VITD3) 2,000 UNIT CAP/TAB PO SCH (08:54)
[2021-04-06] MEDS: ASCORBIC ACID 1,000 MG TAB PO SCH (08:54)
[2021-04-06] MEDS: NICOTINE 21MG/24 HR TOPICAL PATCH TD SCH (08:54)
[2021-04-06] MEDS: DexAMETHasone SOD PHOS 10MG/1ML VIAL INJ IV SCH (08:55)
[2021-04-06] MEDS: AMIODARONE HCL 200 MG TAB PO SCH (08:55)
[2021-04-06] MEDS: PANTOPRAZOLE 40 MG/10 ML VIAL INJ IV SCH (08:55)
[2021-04-06] MEDS: APIXABAN 2.5 MG TAB PO SCH ×2 (08:55→23:13)
[2021-04-06] MEDS: ASPirin-EC 81 mg tab PO SCH (08:55)
[2021-04-06] MEDS: CARVEDILOL 3.125 MG TAB PO SCH ×2 (10:00→22:00)
[2021-04-06] MEDS: DOXYCYCLINE 100MG/250ML 250 ML IV SCH ×2 (11:00→23:15)
[2021-04-06] MEDS: ATORVASTATIN 20 MG TAB PO SCH (23:13)
[2021-04-07] VITALS (21 sets, daily range): BP systolic 103–196; BP diastolic 50–108
[2021-04-07] MEDS: fentaNYL Drip 2500mCg/250mlNS 250 ML IV SCH (03:15)
[2021-04-07] MEDS: MIDAZOLAM DRIP 50 mg/50mL 50 ML IV SCH (03:30)
[2021-04-07 05:00] LABS: BUN/Creatinine Ratio 30.4; Calcium 8.5 mg/dL (8.5-10.1); Potassium 3.8 mmol/L (3.5-5.1)
[2021-04-07 05:28] LABS: Basophils # (auto) 0 10 ^3/uL (0-0.2); Basophils % (auto) 0.3 % (0.0-2.0); Eosinophils # (auto) 0 10 ^3/uL (0-0.8); Eosinophils % (auto) 0.2 % (0.0-7.0); Hematocrit 25.8 % (41.0-53.0); Hemoglobin 8.5 g/dL (13.5-17.5); Lymphocytes # (auto) 1.3 10 ^3/uL (0.4-5.4); Lymphocytes % (auto) 13.4 % (10.0-50.0); Mean Corpuscular Hemoglobin 27.4 pg (28.0-32.0); Mean Corpuscular Hgb Conc. 33.1 g/dL (32.0-36.0); Mean Corpuscular Volume 82.8 fL (80.0-100.0); Monocytes # (auto) 0.8 10 ^3/uL (0-1.3); Neutrophils # (auto) 7.9 10 ^3/uL (1.6-8.6); Neutrophils % (auto) 78.1 % (37.0-80.0); Nucleated Red Blood Cells % 0.1 %; Red Blood Cells 3.11 10^6/uL (4.5-5.90); White Blood Cell 10.1 10^3/uL (4.4-10.8)
[2021-04-07 05:30] LABS: Red Cell Distribution Width 21.7 % (11.8-14.3)
[2021-04-07] MEDS: LEVOTHYROXINE SODIUM 112 MCG TAB PO SCH (06:19)
[2021-04-07] MEDS: InsuLIN REG 1unit/0.01ml Soln (100units/ml) SC SCH ×4 (06:19→22:37)
[2021-04-07] MEDS: ACCU-CHEK COMFORT CURVE STRIP VI SCH ×4 (06:19→22:28)
[2021-04-07] MEDS: CARVEDILOL 3.125 MG TAB PO SCH ×2 (06:22→22:28)
[2021-04-07] MEDS ORDERED: FUROSEMIDE 20 MG/2 ML VIAL IV ONE (10:45)
[2021-04-07] MEDS: CHOLECALCIFEROL (VITD3) 2,000 UNIT CAP/TAB PO SCH (10:59)
[2021-04-07] MEDS: APIXABAN 2.5 MG TAB PO SCH ×2 (10:59→22:21)
[2021-04-07] MEDS: ASCORBIC ACID 1,000 MG TAB PO SCH (10:59)
[2021-04-07] MEDS: NICOTINE 21MG/24 HR TOPICAL PATCH TD SCH (10:59)
[2021-04-07] MEDS: AMIODARONE HCL 200 MG TAB PO SCH (11:00)
[2021-04-07] MEDS: DexAMETHasone SOD PHOS 10MG/1ML VIAL INJ IV SCH (11:00)
[2021-04-07] MEDS: PANTOPRAZOLE 40 MG/10 ML VIAL INJ IV SCH (11:00)
[2021-04-07] MEDS: ASPirin-EC 81 mg tab PO SCH (11:00)
[2021-04-07] MEDS ORDERED: SUCCINYLCHOLINE CHLORIDE 20 MG/ML 10ML VIAL IV ONE (12:12)
[2021-04-07] MEDS ORDERED: ROCURONIUM 10MG/ML 10ML VIAL IV ONE (12:12)
[2021-04-07] MEDS ORDERED: ETOMIDATE (2MG/ML) 20ML VIAL IV ONE (12:12)
[2021-04-07] MEDS: DOXYCYCLINE 100MG/250ML 250 ML IV SCH ×2 (12:37→22:38)
[2021-04-07] MEDS: MORPHINE SULFATE INJECTION 2 MG/ML SYRG IV PRN (16:03)
[2021-04-07] MEDS: FUROSEMIDE 20 MG/2 ML VIAL IV SCH (17:07)
[2021-04-07] MEDS: ATORVASTATIN 20 MG TAB PO SCH (22:21)
[2021-04-08 05:00] VITALS: BP 98/65
[2021-04-08] MEDS: ACCU-CHEK COMFORT CURVE STRIP VI SCH ×4 (06:37→23:13)
[2021-04-08] MEDS: FUROSEMIDE 20 MG/2 ML VIAL IV SCH (06:37)
[2021-04-08] MEDS: InsuLIN REG 1unit/0.01ml Soln (100units/ml) SC SCH ×4 (06:44→23:18)
[2021-04-08] MEDS: LEVOTHYROXINE SODIUM 112 MCG TAB PO SCH (06:46)
[2021-04-08 08:55] VITALS: BP 148/79
[2021-04-08 09:44] LABS: Basophils # (auto) 0 10 ^3/uL (0-0.2); Basophils % (auto) 0.3 % (0.0-2.0); Eosinophils # (auto) 0 10 ^3/uL (0-0.8); Eosinophils % (auto) 0.1 % (0.0-7.0); Hematocrit 28.4 % (41.0-53.0); Hemoglobin 9.5 g/dL (13.5-17.5); Lymphocytes # (auto) 0.7 10 ^3/uL (0.4-5.4); Lymphocytes % (auto) 6.5 % (10.0-50.0); Mean Corpuscular Hemoglobin 28.1 pg (28.0-32.0); Mean Corpuscular Hgb Conc. 33.6 g/dL (32.0-36.0); Mean Corpuscular Volume 83.4 fL (80.0-100.0); Monocytes # (auto) 0.2 10 ^3/uL (0-1.3); Monocytes % (auto) 1.9 % (0.0-12.0); Neutrophils # (auto) 9.5 10 ^3/uL (1.6-8.6); Neutrophils % (auto) 91.2 % (37.0-80.0); White Blood Cell 10.4 10^3/uL (4.4-10.8)
[2021-04-08 10:06] LABS: Calcium 8.6 mg/dL (8.5-10.1); Potassium 3.3 mmol/L (3.5-5.1)
[2021-04-08] MEDS: PANTOPRAZOLE 40 MG/10 ML VIAL INJ IV SCH (10:26)
[2021-04-08] MEDS: DexAMETHasone SOD PHOS 10MG/1ML VIAL INJ IV SCH (10:26)
[2021-04-08] MEDS: ASPirin-EC 81 mg tab PO SCH (10:27)
[2021-04-08] MEDS: AMIODARONE HCL 200 MG TAB PO SCH (10:27)
[2021-04-08] MEDS: CARVEDILOL 3.125 MG TAB PO SCH ×2 (10:27→23:14)
[2021-04-08] MEDS: ASCORBIC ACID 1,000 MG TAB PO SCH (10:28)
[2021-04-08] MEDS: CHOLECALCIFEROL (VITD3) 2,000 UNIT CAP/TAB PO SCH (10:28)
[2021-04-08] MEDS: APIXABAN 2.5 MG TAB PO SCH ×2 (10:28→23:12)
[2021-04-08] MEDS: NICOTINE 21MG/24 HR TOPICAL PATCH TD SCH (10:28)
[2021-04-08] MEDS: DOXYCYCLINE 100MG/250ML 250 ML IV SCH ×2 (11:00→23:14)
[2021-04-08] MEDS ORDERED: POTASSIUM EFFERVESENT TAB 25 MEQ PO ONE (12:45)
[2021-04-08 13:12] VITALS: BP 150/68
[2021-04-08 17:20] VITALS: BP 142/76
[2021-04-08] MEDS: FUROSEMIDE 20 MG TAB PO SCH (18:07)
[2021-04-08 21:46] VITALS: BP 153/86
[2021-04-08] MEDS: ATORVASTATIN 20 MG TAB PO SCH (23:13)
[2021-04-09 05:00] VITALS: BP 143/80
[2021-04-09 07:00] LABS: Basophils # (auto) 0 10 ^3/uL (0-0.2); Eosinophils # (auto) 0 10 ^3/uL (0-0.8); White Blood Cell 16.2 10^3/uL (4.4-10.8)
[2021-04-09] MEDS: InsuLIN REG 1unit/0.01ml Soln (100units/ml) SC SCH ×3 (07:00→17:34)
[2021-04-09 07:05] LABS: Basophils % (auto) 0.2 % (0.0-2.0); Hematocrit 25.7 % (41.0-53.0); Hemoglobin 8.3 g/dL (13.5-17.5); Lymphocytes # (auto) 1.4 10 ^3/uL (0.4-5.4); Lymphocytes % (auto) 8.7 % (10.0-50.0); Mean Corpuscular Hemoglobin 27.1 pg (28.0-32.0); Mean Corpuscular Hgb Conc. 32.1 g/dL (32.0-36.0); Mean Corpuscular Volume 84.3 fL (80.0-100.0); Monocytes % (auto) 6.4 % (0.0-12.0); Neutrophils # (auto) 13.7 10 ^3/uL (1.6-8.6); Neutrophils % (auto) 84.7 % (37.0-80.0); Red Blood Cells 3.05 10^6/uL (4.5-5.90)
[2021-04-09 07:10] LABS: Red Cell Distribution Width 22.9 % (11.8-14.3)
[2021-04-09] MEDS: ACCU-CHEK COMFORT CURVE STRIP VI SCH ×3 (07:12→17:24)
[2021-04-09] MEDS: LEVOTHYROXINE SODIUM 112 MCG TAB PO SCH (07:12)
[2021-04-09] MEDS: FUROSEMIDE 20 MG TAB PO SCH (07:13)
[2021-04-09 07:32] LABS: Potassium 3.8 mmol/L (3.5-5.1)
[2021-04-09 08:05] LABS: BUN/Creatinine Ratio 26.3; Calcium 8.6 mg/dL (8.5-10.1)
[2021-04-09 08:56] VITALS: BP 149/72
[2021-04-09] MEDS: CHOLECALCIFEROL (VITD3) 2,000 UNIT CAP/TAB PO SCH (09:42)
[2021-04-09] MEDS: APIXABAN 2.5 MG TAB PO SCH (09:43)
[2021-04-09] MEDS: CARVEDILOL 3.125 MG TAB PO SCH (09:43)
[2021-04-09] MEDS: AMIODARONE HCL 200 MG TAB PO SCH (09:44)
[2021-04-09] MEDS: ASPirin-EC 81 mg tab PO SCH (09:44)
[2021-04-09] MEDS: PANTOPRAZOLE 40 MG/10 ML VIAL INJ IV SCH (09:44)
[2021-04-09] MEDS: NICOTINE 21MG/24 HR TOPICAL PATCH TD SCH (09:44)
[2021-04-09] MEDS ORDERED: CHOL1CAP47 PO (10:09)
[2021-04-09] MEDS: DOXYCYCLINE 100MG/250ML 250 ML IV SCH (11:35)
[2021-04-09] MEDS: MORPHINE SULFATE INJECTION 2 MG/ML SYRG IV PRN (11:42)
[2021-04-09 12:11] VITALS: BP 129/59
[2021-04-09 12:47] VITALS: BP 129/59
== END 2021-04-09 19:02 | disposition home or self-care (01) | DRG 720 ==
LOC: ER 07:25 → TELE 18:55 → TELE-EAST 22:09 → TELE-E-ADS 03-30 01:40 → ICU WEST 03-30 02:50 → CATH ICU 04-04 18:38 → ICU WEST 04-04 18:39 → TELE-WESTW 04-07 11:26
PROVIDERS: ADMIT Hospitalist; ATTEND Internal Medicine Pulmonary Disease
PROC: XW033E5 Introduction of Remdesivir Anti-infective into Peripheral Vein, Percutaneous Approach, New Technology Group 5 (ICD-10-PCS; 2021-03-29)
PROC: 5A1955Z Respiratory Ventilation, Greater than 96 Consecutive Hours (ICD-10-PCS; principal; 2021-03-30)
PROC: 0BH17EZ Insertion of Endotracheal Airway into Trachea, Via Natural or Artificial Opening (ICD-10-PCS; 2021-03-30)
PROC: 5A09357 Assistance with Respiratory Ventilation, Less than 24 Consecutive Hours, Continuous Positive Airway Pressure (ICD-10-PCS; 2021-03-30)
PROC: 5A1935Z Respiratory Ventilation, Less than 24 Consecutive Hours (ICD-10-PCS; 2021-03-30)
PROC: 5A12012 Performance of Cardiac Output, Single, Manual (ICD-10-PCS; 2021-03-30)
PROC: 06HY33Z Insertion of Infusion Device into Lower Vein, Percutaneous Approach (ICD-10-PCS; 2021-03-30)
PROC: 05HA33Z Insertion of Infusion Device into Left Brachial Vein, Percutaneous Approach (ICD-10-PCS; 2021-04-08)
PROC: B54NZZA Ultrasonography of Left Upper Extremity Veins, Guidance (ICD-10-PCS; 2021-04-08)
DX: A41.89 Other specified sepsis (principal); J96.01 Acute respiratory failure with hypoxia; J12.82 Pneumonia due to coronavirus disease 2019; N17.0 Acute kidney failure with tubular necrosis; U07.1 COVID-19; R65.21 Severe sepsis with septic shock; J93.9 Pneumothorax, unspecified; I46.9 Cardiac arrest, cause unspecified; E11.21 Type 2 diabetes mellitus with diabetic nephropathy; D64.9 Anemia, unspecified; I50.43 Acute on chronic combined systolic (congestive) and diastolic (congestive) heart failure; I21.A1 Myocardial infarction type 2; I48.92 Unspecified atrial flutter; E03.9 Hypothyroidism, unspecified; F41.1 Generalized anxiety disorder; I16.1 Hypertensive emergency; J44.9 Chronic obstructive pulmonary disease, unspecified; N18.31 Chronic kidney disease, stage 3a; E87.5 Hyperkalemia; J98.11 Atelectasis; I48.0 Paroxysmal atrial fibrillation; I13.0 Hypertensive heart and chronic kidney disease with heart failure and stage 1 through stage 4 chronic kidney disease, or unspecified chronic kidney disease; I42.7 Cardiomyopathy due to drug and external agent; F19.10 Other psychoactive substance abuse, uncomplicated; E78.5 Hyperlipidemia, unspecified; I27.20 Pulmonary hypertension, unspecified; I34.0 Nonrheumatic mitral (valve) insufficiency; Z91.19 Patient's noncompliance with other medical treatment and regimen; Z99.11 Dependence on respirator [ventilator] status
CPT/HCPCS: 36415; 36600; 71045; 80048; 80053; 80307; 81001; 82728; 82805; 82962; 83615; 83735; 83880; 84100; 84443; 84484; 85007; 85025; 85027; 85379; 85610; 85730; 86141; 87040; 87070; 87086; 87205; 87426; 92950; 93005; 93306; 93971; 94002; 94003; 94640; 94660; 96374; 96375; 97116; 97163; 97530; C9113; G0378; J0330; J1100; J1815; J2250; J3490; J7060; P9047

== ENCOUNTER 2023-08-07 18:42 | Emergency (ER) | payer OTHER, MEDICAID ==
[~2023-08-07] VITALS: Ht 182.9 cm; Wt 93.0 kg
[~2023-08-07 18:42] MED LIST changes: -CARV6.25 PO; +CARV6.2517 PO; +CHOL1CAP47 PO; -DOXY-286 PO
[2023-08-07 20:27] VITALS: BP 183/122; TEMP 98.7; O2SAT 96
[2023-08-07] MEDS: FLUORESCEIN SOD OPTH TEST STRIP EACHEYE ONE (20:29)
[2023-08-07 20:32] VITALS: PULSE 67; RESP 18
== END 2023-08-07 21:57 | disposition home or self-care (01) ==
LOC: ER 18:42
DX: H53.2 Diplopia (principal); I13.0 Hypertensive heart and chronic kidney disease with heart failure and stage 1 through stage 4 chronic kidney disease, or unspecified chronic kidney disease; E11.22 Type 2 diabetes mellitus with diabetic chronic kidney disease; N18.9 Chronic kidney disease, unspecified; I50.9 Heart failure, unspecified; I25.2 Old myocardial infarction; J44.9 Chronic obstructive pulmonary disease, unspecified; F17.210 Nicotine dependence, cigarettes, uncomplicated; F15.90 Other stimulant use, unspecified, uncomplicated; Z98.890 Other specified postprocedural states; Z79.899 Other long term (current) drug therapy

== ENCOUNTER 2024-10-07 17:23 | Inpatient (IN) | payer OTHER ==
[~2024-10-07] VITALS: Ht 182.9 cm; Wt 84.0 kg
[~2024-10-07 17:23] MED LIST changes: -LEV100T PO; +LEVO-849 PO; +LIDO3CRE16 EX; +VALA1TAB PO
--- NOTE | 2024-10-07 18:28 | ED.PDOC ---
History of Present Illness HPI Comments 64-year-old male with a history of hypertension, diabetes, CAD, mi, CHF and COPD on home O2 brought in by self complaining of bilateral lower extremity weakness for the past 2-1/2-3 months. Patient also notes his feet and ankles are swollen and painful, making it difficult for him to ambulate. He also notes shortness of breath with mild exertion. He denies any chest pain, fever or cough. Chief Complaint: General Weakness Time Seen by MD: 18:20 Primary Care Provider: JULEE Allergies: Coded Allergies: NO KNOWN ALLERGIES (Unverified , 04/10/15) Home Meds Active Scripts Lidocaine Hcl (Lidocaine) 3 % Cre, 3 % EX TID for 10 Days, #28.3 GRAMS Apply a thin layer to the affected area 3 times daily Prov:BRAEDEN DELACRUZ 11/19/23 Valacyclovir Hcl (Valtrex) 1 Gm Tab, 1 TAB PO TID for 7 Days, #21 TAB Prov:BRAEDEN DELACRUZ 11/19/23 Cholecalciferol (Vitamin D3 Super Strength) 2,000 Unit Cap, 4000 UNIT PO DAILY for 30 Days, #30 CAP Prov:DARION JAEGER MD 04/09/21 Isosorbide Mononitrate (Isosorbide Mononitrate Er) 30 Mg Tab, 1 TAB PO DAILY, #30 TAB Prov:BETHANIE YANES MD 02/23/21 Levothyroxine Sodium (SYNTHROID TABLET) 100 Mcg Tb, 1 TAB PO DAILY, #30 TAB Prov:BETHANIE YANES MD 02/23/21 Pantoprazole Sodium Sesquihydr (Protonix) 40 Mg Tab, 40 MG PO DAILY, #30 TAB Prov:BETHANIE YANES MD 02/23/21 Furosemide (Lasix) 40 Mg Tab, 40 MG PO DAILY for 30 Days, #30 TAB Prov:BETHANIE YANES MD 02/23/21 Carvedilol (Coreg) 6.25 Mg Tab, 1 TAB PO BID, #60 TAB Prov:BETHANIE YANES MD 02/23/21 Nicotine (Nicoderm 21MG/24HR) 1 Patch Ph, 1 PATCH TOP DAILY, #28 PATCH Prov:BETHANIE YANES MD 01/02/21 Reported Medications Amiodarone Hcl (Amiodarone Hcl) 200 Mg Tab, 200 MG PO DAILY 02/17/21 Albuterol Sulfate (VENTOLIN MDI) 90 Mcg Ih, 2 PUFF IN Q6HP PRN for SHORTNESS OF BREATH for 30 Days, MCG 02/17/21 Aspirin (Aspirin) 81 Mg Tab, 1 TAB PO DAILY 12/27/20 Insulin Glargine (Basaglar Kwikpen) 100 Unit/Ml Inj, 20 UNITS SC DAILY 12/27/20 Apixaban Base (ELIQUIS) 5 Mg Tab, 1 TAB PO BID 12/27/20 Metformin Hydrochloride (Metformin Hcl) 1,000 Mg Tab, 1 TAB PO BID 12/27/20 Mode of Arrival: Wheelchair Past Medical History PAST MEDICAL HISTORY: Asthma, CHF, CKF, COPD, DM, HTN, MT Surgical History: Hernia Repair Surgical History (Other): ICD, G-tube, throat tumor removal Family History Family History: Family hx of DM Social History Smoker: Cigarettes, Less Than 1 Pack/Day Alcohol: Denies ETOH Use Drugs: Methamphetamine Lives In: Home All Other Systems: Reviewed and Negative (Comprehensive systems review obtained and negative except for what is stated in the HPI.) Physical Exam General Appearance: No Apparent Distress HEENT: Other (Pupils and face symmetric. Dry mucous membranes.) Neck: Full Range of Motion, Normal Inspection Respiratory: Decreased Breath Sounds, No Accessory Muscle Use, No Respiratory Distress Cardiovascular: No JVD, Regular Rate/Rhythm Breast Exam: Deferred Gastrointestinal: Non Tender, Soft Genitalia: Deferred Pelvic: Deferred Rectal: Deferred Extremities: Normal range of motion, Non-tender, Pedal edema (1+) Neurologic: Alert (Oriented x4), Normal Affect, Normal Mood, Other (Moves all extremities. No gross focal deficit.) Cerebellar Function: NOT DONE Reflexes: NOT DONE Skin: Dry, Warm, Other (Mild bilateral foot erythema) Lymphatic: NOT DONE Was a procedure done? Was a procedure done?: No Differential Dx Considerations may include: CHF exacerbation, COPD exacerbation, DVT, cellulitis, CVA, electrolyte imbalance, viral syndrome, MT, PE, ACS, PNA, sepsis, URI,among others X-Ray, Labs, Meds, VS Vital Signs Date Time Temp Pulse Resp B/P (MAP) Pulse Ox O2 Delivery O2 Flow Rate FiO2 10/07/24 19:22 82 10/07/24 17:25 98.3 88 18 183/125 97 98.3 Lab Test 10/07/24 19:47 10/07/24 18:44 Range/Units Lactic Acid Level 1.8 0.4-2.0 mmol/L Troponin I High Sensitivity 70 *H 75 *H </=54 ng/L White Blood Count 7.3 4.4-10.8 10^3/uL Red Blood Count 5.13 4.5-5.90 10^6/uL Hemoglobin 15.1 13.5-17.5 g/dL Hematocrit 44.7 41.0-53.0 % Mean Corpuscular Volume 87.3 80.0-100.0 fL Mean Corpuscular Hemoglobin 29.4 28.0-32.0 pg Mean Corpuscular Hemoglobin Concent 33.7 32.0-36.0 g/dL Red Cell Distribution Width 16.2 H 11.8-14.3 % Platelet Count 167 140-450 10^3/uL Mean Platelet Volume 8.2 6.9-10.8 fL Neutrophils (%) (Auto) 72.8 37.0-80.0 % Lymphocytes (%) (Auto) 16.1 10.0-50.0 % Monocytes (%) (Auto) 8.0 0.0-12.0 % Eosinophils (%) (Auto) 2.7 0.0-7.0 % Basophils (%) (Auto) 0.4 0.0-2.0 % Neutrophils # (Auto) 5.3 1.6-8.6 10 ^3/uL Lymphocytes # (Auto) 1.2 0.4-5.4 10 ^3/uL Monocytes # (Auto) 0.6 0-1.3 10 ^3/uL Eosinophils # (Auto) 0.2 0-0.8 10 ^3/uL Basophils # (Auto) 0 0-0.2 10 ^3/uL Nucleated Red Blood Cells 0.2 % Sodium Level 140 136-145 mmol/L Potassium Level 3.9 3.5-5.1 mmol/L Chloride Level 102 98-107 mmol/L Carbon Dioxide Level 28 20-31 mmol/L Anion Gap 10 5-15 Blood Urea Nitrogen 34 H 9-23 mg/dL Creatinine 2.68 H 0.700-1.30 mg/dL Glomerular Filtration Rate Calc 25 >90 mL/min BUN/Creatinine Ratio 12.7 10.0-20.0 Serum Glucose 243 H 74-106 mg/dL Calcium Level 9.9 8.7-10.4 mg/dL B-Type Natriuretic Peptide 155.84 0-100 pg/mL PROCEDURE(s): CXRP - CHEST PORTABLE REASON: gen marvin ORDER NUMBER(s): [id number], ACCESSION NUMBER(s): [id number] CHEST RADIOGRAPH REASON FOR EXAM: gen marvin COMPARISON: CHEST PORTABLE on DOS: 04/09/21, CHEST PORTABLE on DOS: 04/08/21, CHEST PORTABLE on DOS: 04/07/21, CHEST PORTABLE on DOS: 04/06/21, CHEST PORTABLE on DOS: 04/05/21 TECHNIQUE: One view of the chest is provided FINDINGS: The cardiomediastinal silhouette is within normal limits for technique. There is no focal airspace disease. There is no significant pleural effusion. No acute bony abnormality is identified. IMPRESSION: No radiographic evidence of acute cardiopulmonary process. EDURE(s): HWOCT - HEAD WITHOUT CONTRAST REASON: RD marvin ORDER NUMBER(s): [id number], ACCESSION NUMBER(s): [id number] EXAM: CT HEAD WITHOUT CONTRAST INDICATION: RD shavonne TECHNIQUE: CT of the head without intravenous contrast. Radiation Dose Information: CT Dose: CTDI volume is 58.54 mGy. Dose-length product is 938.35 mGy*cm The dose indicators for CT are the volume Computed Tomography (CT) Dose Index (CTDIvol) and the Dose Length Product (DLP), and are measured in units of mGy and mGy-cm, respectively. These indicators are not patient dose, but values generated from the CT scanner acquisition factors. The report includes radiation exposure data for exposures received during this examination. COMPARISON: None FINDINGS: There is no evidence of acute intracranial hemorrhage, extra-axial collection, mass effect, midline shift, herniation or hydrocephalus. The ventricles, sulci and cisterns are age appropriate. The north-white differentiation is intact. Patchy periventricular and subcortical white matter hypoattenuation is nonspe cific but may be related to small vessel ischemic disease. The visualized paranasal sinuses and mastoid air cells are clear. The surrounding soft tissues and osseous structures are unremarkable. IMPRESSION: 1. No acute intracranial abnormality. HS:Y X-Ray, Labs, Meds, VS Comment 64-year-old male with a history of diabetes, CAD, mi, CHF, COPD on home O2 complaining of generalized weakness greatest in both lower extremities, bilateral foot swelling and pain, and shortness of breath Vitals remarkable for BP 183/125 Exam remarkable for bilateral foot 1+ edema and mild erythema, diminished breath sounds at both lung bases Rhythm strip independently interpreted by me: Sinus rhythm, rate 88, no ectopy. Chest x-ray unremarkable CT head unremarkable Bilateral lower extremity ultrasound pending CBC unremarkable, basic metabolic panel remarkable for BUN 34, creatinine 2.68, BNP 155.84, serial troponins 75 and 70, lactate normal Patient treated with the following in the ED: Nitro-Bid 1/2 inch to chest wall, Lasix 40 mg IV, [place] 5/325 mg p.o., Zosyn 4.5 g IV, aspirin 325 mg p.o. On re-evaluation, patient states pain has improved. Blood pressure has improv ed. Plan is to admit the patient for blood pressure control, IV antibiotics to cover possible bilateral foot cellulitis, Cardiology evaluation. Patient's creatinine has increased from 1.86 in March to 2.68 today. He may also benefit from nephrology evaluation. Time of 1ST Reevaluation: 18:50 Reevaluation 1ST: Unchanged Patient Education/Counseling: Diagnosis, Treatment, Other (NEED FOR ADMISSION ) Family Education/Counseling: No Family Present SEPSIS Sepsis Screen Date sepsis recognized/suspect: Oct 07, 2024 Time Sepsis recognized/suspect: 1724 Recent Procedure: No On Antibiotic Therapy: No Respiratory Rate >20: No Heart Rate >90: No Temp<36 C (96.8 F) or >38.3 C: No SBP <90 or MAP <65 mmHG: No New Acute Mental Status Change: No Is the patient on CPAP, BIPAP,: No Physician Orders Chest Portable (10/07/24 18:00) Urinalysis (10/07/24 18:00) Electrocardigram (10/07/24 18:00) Head Without Contrast (10/07/24 18:00) Troponin-I Hs (10/07/24 21:00) Bilat Lower Dvt (10/07/24 19:14) Blood Culture (10/07/24 19:15) Aspirin Tablet (10/07/24 20:45) Vital Signs Date Time Temp Pulse Resp B/P (MAP) Pulse Ox O2 Delivery O2 Flow Rate FiO2 10/07/24 19:22 82 10/07/24 17:25 98.3 88 18 183/125 97 98.3 Laboratory Tests Test 10/07/24 18:44 10/07/24 19:47 White Blood Count 7.3 10^3/uL (4.4-10.8) Lactic Acid Level 1.8 mmol/L (0.4-2.0) Departure 1 Departure Time of Disposition: 19:16 Impression: Primary Impression: CHF exacerbation Additional Impressions: Generalized weakness Cellulitis of both feet Elevated troponin level Disposition: ADMITTED INPATIENT Admit to: Tele Condition: Guarded Critical Care Note Critical Care Time?: No Stability Stability form required: No Heart Score Heart Score: Heart Score Response (Comments) Value History N/A 0 EKG N/A 0 Age N/A 0 Risk Factors N/A 0 Troponin N/A 0 Total 0 I personally scribed for SANDRO BARKSDALE MD ([email or web address]) on 10/07/24 at 18:28. Electronically submitted by Kenneth Nelson ([email or web address]). I personally scribed for SANDRO BARKSDALE MD ([email or web address]) on 10/07/24 at 20:07. Electronically submitted by Kenneth Nelson ([email or web address]). SANDRO BARKSDALE MD Oct 07, 2024 18:28
--- NOTE | 2024-10-07 18:28 | DVH ---
CHEST RADIOGRAPH REASON FOR EXAM: gen weak COMPARISON: CHEST PORTABLE on DOS: 04/09/21, CHEST PORTABLE on DOS: 04/08/21, CHEST PORTABLE on DOS: , CHEST PORTABLE on DOS: 04/06/21, CHEST PORTABLE on DOS: 04/05/21 TECHNIQUE: One view of the chest is provided FINDINGS: The cardiomediastinal silhouette is within normal limits for technique. There is no focal a irspace disease. There is no significant pleural effusion. No acute bony abnormality is identified. IMPRESSION: No radiographic evidence of acute cardiopulmonary process.
--- NOTE | 2024-10-07 18:43 | DVH ---
EXAM: CT HEAD WITHOUT CONTRAST INDICATION: BLE weak TECHNIQUE: CT of the head without intravenous contrast. Radiation Dose Information: CT Dose: CTDI volume is 58.54 mGy. Dose-length product is 938.35 mGy*cm The dose indicators for CT are the volume Computed Tomography (CT) Dose Index (CTDIvol) and the Dose Length Product (DLP), and are measured in units of mGy and mGy-cm, respectively. These indicators are not patient dose, but values generated from the CT scanner acquisition factors. The report includes radiation exposure data for exposures received during this examination. COMPARISON: None FINDINGS: There is no evidence of acute intracranial hemorrhage, extra-axial collection, mass effect, midline s hift, herniation or hydrocephalus. The ventricles, sulci and cisterns are age appropriate. The north-white differentiation is intact. Patchy periventricular and subcortical white matter hypoattenuation is nonspecific but may be related to small vessel ischemic disease. The visualized paranasal sinuses and mastoid air cells are clear. The surrounding soft tissues and osseous structures are unremarkable. IMPRESSION: 1. No acute intracranial abnormality. HS:Y
[2024-10-07] MEDS ORDERED: NITROGLYCERIN 2% OINT 1GM PKG TD ONE (18:45)
[2024-10-07 18:57] LABS: Hematocrit 44.7 % (41.0-53.0); Hemoglobin 15.1 g/dL (13.5-17.5); Mean Corpuscular Hemoglobin 29.4 pg (28.0-32.0); Mean Corpuscular Volume 87.3 fL (80.0-100.0); Nucleated Red Blood Cells % 0.2 %
[2024-10-07 19:02] LABS: Chloride 102 mmol/L (98-107); Potassium 3.9 mmol/L (3.5-5.1); Sodium 140 mmol/L (136-145)
[2024-10-07 19:03] LABS: Anion Gap 10 (5-15); Carbon Dioxide 28 mmol/L (20-31)
[2024-10-07 19:04] LABS: Calcium 9.9 mg/dL (8.7-10.4)
[2024-10-07 19:08] LABS: BUN/Creatinine Ratio 12.7 (10.0-20.0)
[2024-10-07 19:22] LABS: Blood Urea Nitrogen 34 mg/dL (9-23); Glucose 243 mg/dL (74-106)
--- NOTE | 2024-10-07 19:48 | DVH ---
BILATERAL LOWER EXTREMITY VENOUS DUPLEX REASON FOR EXAMINATION: Bilateral lower extremity pain and edema. COMPARISON: None TECHNIQUE: Using real-time freeze-frame technique with a high-frequency transducer, multiple longitu dinal and transverse sections were obtained. Simultaneous color flow and spectral Doppler imaging wa s performed. FINDINGS: There is good visualization of the deep venous system with no intraluminal filling defects identified. Normal venous compressibility is seen and there is flow augmentation. Color flow Doppler imaging is unremarkable. IMPRESSION: NO EVIDENCE OF DEEP VENOUS THROMBOSIS.
[2024-10-07] MEDS ORDERED: ONDANSETRON HCL 4 MG/2 ML VIAL IV PRN (23:00)
[2024-10-07] MEDS ORDERED: MORPHINE SULFATE INJ 2 MG/ml SYRG IV PRN ×2 (23:00)
[2024-10-08] VITALS (11 sets, daily range): BP systolic 119–190; BP diastolic 43–116; PULSE 55–85; RESP 13–19; TEMP 97.3–98.2; O2SAT 92–98
[2024-10-08] MEDS: PIPERACILLIN-TAZO 4.5GM 100 ML IV ONE (00:45)
[2024-10-08] MEDS: FUROSEMIDE 40 MG/4 ML VIAL IV ONE (00:46)
[2024-10-08] MEDS: NITROGLYCERIN 0.4 MG SL TAB SL PRN (00:46)
[2024-10-08] MEDS: HYDROcodone-ACET 5/325MG TAB PO ONE (00:47)
[2024-10-08 01:23] LABS: Urine Protein, UAD 1+ (Negative)
[2024-10-08 06:30] LABS: Hematocrit 40.2 % (41.0-53.0); Hemoglobin 13.6 g/dL (13.5-17.5); Mean Corpuscular Hemoglobin 29.4 pg (28.0-32.0); Mean Corpuscular Volume 86.9 fL (80.0-100.0); Nucleated Red Blood Cells % 0.1 %
[2024-10-08 06:42] LABS: Alanine Aminotransferase 31 U/L (7-40); Albumin 4.1 g/dL (3.2-4.8); Alkaline Phosphatase 123 U/L (46-116); Anion Gap 10 (5-15); BUN/Creatinine Ratio 12.9 (10.0-20.0); Bilirubin, Total 0.5 mg/dL (0.2-1.0); Blood Urea Nitrogen 32 mg/dL (9-23); Calcium 9.4 mg/dL (8.7-10.4); Carbon Dioxide 28 mmol/L (20-31); Chloride 101 mmol/L (98-107); Glucose 222 mg/dL (74-106); Potassium 3.3 mmol/L (3.5-5.1); Sodium 139 mmol/L (136-145); Total Protein 7.3 g/dL (5.7-8.2)
[2024-10-08] MEDS: ASCORBIC ACID 500 MG TAB PO SCH (09:46)
[2024-10-08] MEDS: ZINC SULFATE 220mg CAP or TAB PO SCH (09:46)
[2024-10-08] MEDS: MULTIPLE VITAMIN TAB PO SCH (09:46)
--- NOTE | 2024-10-08 09:46 | DVHINCON2 ---
Date of service: Oct 08, 2024 History of Present Illness HPI Patient is a 64-year-old gentleman who presented to the hospital with 2-1/2-3 months of bilateral lower extremities weakness some feet swelling and also pain. Mentions dyspnea on exertion. He is poor historian. He is disheveled. He does not follow with physicians/cardiologists. Mentions history of heart attack/heart failure. Last cardiology visit was over years ago in the hospital. Denies any recent chest pains. Denies taking medications. Does smoke cigarette and use amphetamine. Cardiology is involved for cardiac aspects of care. Home Meds Active Scripts Lidocaine Hcl (Lidocaine) 3 % Cre, 3 % EX TID for 10 Days, #28.3 GRAMS Apply a thin layer to the affected area 3 times daily Prov:BRAEDEN DELACRUZ [facility] 11/19/23 Valacyclovir Hcl (Valtrex) 1 Gm Tab, 1 TAB PO TID for 7 Days, #21 TAB Prov:BRAEDEN DELACRUZ [facility] 11/19/23 Cholecalciferol (Vitamin D3 Super Strength) 2,000 Unit Cap, 4000 UNIT PO DAILY for 30 Days, #30 CAP Prov:DARION JAEGER MD 04/09/21 Isosorbide Mononitrate (Isosorbide Mononitrate Er) 30 Mg Tab, 1 TAB PO DAILY, #30 TAB Prov:BETHANIE YANES MD 02/23/21 Levothyroxine Sodium (SYNTHROID TABLET) 100 Mcg Tb, 1 TAB PO DAILY, #30 TAB Prov:BETHANIE YANES MD 02/23/21 Pantoprazole Sodium Sesquihydr (Protonix) 40 Mg Tab, 40 MG PO DAILY, #30 TAB Prov:BETHANIE YANES MD 02/23/21 Furosemide (Lasix) 40 Mg Tab, 40 MG PO DAILY for 30 Days, #30 TAB Prov:BETHANIE YANSE MD 02/23/21 Carvedilol (Coreg) 6.25 Mg Tab, 1 TAB PO BID, #60 TAB Prov:BETHANIE YANES MD 02/23/21 Nicotine (Nicoderm 21MG/24HR) 1 Patch Ph, 1 PATCH TOP DAILY, #28 PATCH Prov:BETHANIE YANES MD 01/02/21 Reported Medications Amiodarone Hcl (Amiodarone Hcl) 200 Mg Tab, 200 MG PO DAILY 02/17/21 Albuterol Sulfate (VENTOLIN MDI) 90 Mcg Ih, 2 PUFF IN Q6HP PRN for SHORTNESS OF BREATH for 30 Days, MCG 02/17/21 Aspirin (Aspirin) 81 Mg Tab, 1 TAB PO DAILY 12/27/20 Insulin Glargine (Basaglar Kwikpen) 100 Unit/Ml Inj, 20 UNITS SC DAILY 12/27/20 Apixaban Base (ELIQUIS) 5 Mg Tab, 1 TAB PO BID 12/27/20 Metformin Hydrochloride (Metformin Hcl) 1,000 Mg Tab, 1 TAB PO BID 12/27/20 Past Medical History Others Past medical history includes diabetes mellitus, hypertension, hyperlipidemia, questionable history of myocardial infarction (as per patient himself), history of heart failure, HFimpEF, COPD and old history of respiratory failure on home oxygen, paroxysmal AFib/flutter, GERD, hypothyroidism, CKD, old history of hernia repair, history of tracheostomy/PEG in placement, history of removal of tracheostomy and PEG placement and also history of throat tumor removal many years ago. He abuses methamphetamine and smokes cigarettes. Patient Family History: Diabetes mellitus G8 MOTHER G8 FATHER Smoker: Positive Alocohol: None Drugs: Amphetimines Review of Systems Constitutional: Weakness Ears, Nose, & Throat: No symptom reported Pulmonary/Respiratory: Dyspnea Cardiovascular: Edema Gastrointestinal: No symptom reported All Other Systems Fourteen point review of system was performed. Relevant findings as per above and as per HPI. Otherwise negative. H&P Exam Vital Signs Vital Signs Date Time Temp Pulse Resp B/P (MAP) Pulse Ox O2 Delivery O2 Flow Rate FiO2 10/08/24 08:00 67 10/08/24 06:49 163/93 (116) 10/08/24 05:09 17 93 10/07/24 23:54 97.7 97.7 General Appeara: Other (Disheveled) Head Exam: Normal inspection Eye Exam: bilateral eye PERRL Mouth: Normal Inspection Pulmonary/Respiratory: Normal inspection Cardiovascular/Chest: Normal inspection, Edema, Systolic murmur Peripheral Pulses: 2+ carotid (R), 2+ carotid (L), 2+ femoral (R), 2+ femoral (L), 2+ dorsalis pedis (R), 2+ dorsalis pedis (L), 2+ Radial (R), 2+ Radial (L) Abdominal Exam: Normal bowel sounds, Soft Neuro/Mental St: Alert, Oriented Appearance: Appropriate appearance Eye contact/ Speech: Cooperative Labs/Xrays Labs Test 10/08/24 05:59 10/08/24 05:39 10/07/24 23:59 10/07/24 21:56 Range/Units White Blood Count 7.1 4.4-10.8 10^3/uL Red Blood Count 4.62 4.5-5.90 10^6/uL Hemoglobin 13.6 13.5-17.5 g/dL Hematocrit 40.2 #L 41.0-53.0 % Mean Corpuscular Volume 86.9 80.0-100.0 fL Mean Corpuscular Hemoglobin 29.4 28.0-32.0 pg Mean Corpuscular Hemoglobin Concent 33.9 32.0-36.0 g/dL Red Cell Distribution Width 16.1 H 11.8-14.3 % Platelet Count 121 L 140-450 10^3/uL Mean Platelet Volume 8.5 6.9-10.8 fL Neutrophils (%) (Auto) 61.8 37.0-80.0 % Lymphocytes (%) (Auto) 22.5 10.0-50.0 % Monocytes (%) (Auto) 11.0 0.0-12.0 % Eosinophils (%) (Auto) 3.7 0.0-7.0 % Basophils (%) (Auto) 1.0 0.0-2.0 % Neutrophils # (Auto) 4.4 1.6-8.6 10 ^3/uL Lymphocytes # (Auto) 1.6 0.4-5.4 10 ^3/uL Monocytes # (Auto) 0.8 0-1.3 10 ^3/uL Eosinophils # (Auto) 0.3 0-0.8 10 ^3/uL Basophils # (Auto) 0.1 0-0.2 10 ^3/uL Nucleated Red Blood Cells 0.1 % Sodium Level 139 136-145 mmol/L Potassium Level 3.3 L 3.5-5.1 mmol/L Chloride Level 101 98-107 mmol/L Carbon Dioxide Level 28 20-31 mmol/L Anion Gap 10 5-15 Blood Urea Nitrogen 32 H 9-23 mg/dL Creatinine 2.48 H 0.700-1.30 mg/dL Glomerular Filtration Rate Calc 28 >90 mL/min BUN/Creatinine Ratio 12.9 10.0-20.0 Serum Glucose 222 H 74-106 mg/dL Calcium Level 9.4 8.7-10.4 mg/dL Total Bilirubin 0.5 0.2-1.0 mg/dL Aspartate Amino Transferase (AST) 27 13-40 U/L Alanine Aminotransferase (ALT) 31 7-40 U/L Alkaline Phosphatase 123 H 46-116 U/L Total Protein 7.3 5.7-8.2 g/dL Albumin 4.1 3.2-4.8 g/dL Urine Color Yellow Yellow Urine Clarity Clear Clear Urine pH 5.5 5.0-9.0 Urine Specific [place] 1.021 1.001-1.035 Urine Protein 1+ H Negative Urine Ketones Negative Negative Urine Blood Negative Negative /uL Urine Nitrite Negative Negative Urine Bilirubin Negative Negative Urine Urobilinogen Normal Negative mg/dL Urine Leukocyte Esterase Negative Negative /uL Urine RBC 2 0 - 3 /hpf Urine Microscopic WBC 1 0-3 /HPF Urine Squamous Epithelial Cells Few <5 /hpf Urine Bacteria None seen None Seen /hpf Urine Hyaline Casts Few 0 - 2 /lpf Urine Mucus Few None Seen Urine Glucose 2+ H Normal mg/dL Troponin I High Sensitivity 72 *H </=54 ng/L Test 10/07/24 19:47 10/07/24 18:44 Range/Units Lactic Acid Level 1.8 0.4-2.0 mmol/L B-Type Natriuretic Peptide 155.84 0-100 pg/mL Assessment/Plan Plan Patient is a 64-year-old gentleman who presented to the hospital with 2-1/2-3 months of bilateral lower extremities weakness, some feet swelling and also pain. Mentions dyspnea on exertion. He is poor historian. He is disheveled. He does not follow with physicians/cardiologists. Mentions history of heart attack/heart failure. Last cardiology visit was over years ago in the hospital. Denies any recent chest pains. Denies taking medications. Does smoke cigarette and use amphetamine. Cardiology is involved for cardiac aspects of care. Lying flat and not in acute distress in bed. Not using accessory muscles of breathing. Disheveled. No JVD. Mucosa is pink and wet. No carotid bruit. No goiter. Lungs are clear to auscultation. Not using accessory muscles of breathing. Cardiac: Regular, no thrill/gallop. Systolic murmur 2/6 in the apex is heard. Abdomen is soft. There is no gross mass/hepatomegaly. Dorsalis pedis is 1+ bilaterally. There is bilateral 1+ edema. Past medical history includes diabetes mellitus, hypertension, hyperlipidemia, questionable history of myocardial infarction (as per patient himself), history of heart failure, HFimpEF, COPD and old history of respiratory failure on home oxygen, paroxysmal AFib/flutter, GERD, hypothyroidism, CKD, old history of hernia repair, history of tracheostomy/PEG in placement, history of removal of tracheostomy and PEG placement and also history of throat tumor removal many years ago. He abuses methamphetamine and smokes cigarettes. Echocardiogram of December 2020 had reported ejection fraction of 30% and severe mitral regurgitation Echocardiogram of March 2021 reported ejection fraction of 50%, inferior hypokinesis and normal valves Platelet: 167 - 121 Creatinine: 2.68 - 2.48 Potassium: 3.9 - 3.3 BNP: 155.84 Troponin (high sensitive): 75 - 70 - 72 Chest x-ray revealed: IMPRESSION: No radiographic evidence of acute cardiopulmonary process. CT of the head revealed: IMPRESSION: 1. No acute intracranial abnormality. Venous Doppler of lower extremities revealed: IMPRESSION: NO EVIDENCE OF DEEP VENOUS THROMBOSIS. EKG revealed sinus rhythm, left atrial enlargement, IVCD Patient is a 64-year-old gentleman who presented with lower extremity weakness/swelling. Does have history questioning claudication. Does have history of heart failure. Is noncompliant with medication and followups. Presentation questions component of acute on chronic heart failure. Does have history of substance abuse which could have contributed to the clinical picture. Does have minimal volume overload status. Does have baseline history of AFib/flutter and recognizing comorbidities, CHADS-VASc score is elevated and long-term full anticoagulation is advised. Recognizing CKD, dose of anticoagulation can be adjusted accordingly. Minimally increased and flat tr oponin in a patient with history of heart failure is assessed to reflect demand physiology. Acute coronary syndrome is not considered. Presentation questions claudication of lower extremities Acute on chronic heart failure Claudication Minimally elevated/flat troponin, assessed to reflect demand physiology Polysubstance abuse BLANK on CKD Cardiac suggestion for management: Manage on telemetry Gentle diuresis (IV Lasix, 80 mg daily) Follow-up electrolytes and kidney function tests and correct abnormalities. Keep potassium above 4 and magnesium above 2 Request for D-dimer and if abnormal request for V/Q scan Long-term continuation of full anticoagulation in a patient with paroxysmal AFib and high CHADS-VASc score is suggested. Lovenox: 1 milligram/kilogram once daily, SC for now Echocardiogram Arterial Doppler of lower extremities Request for urine toxicology Lifestyle and risk factor modification is advised Further evaluation and management depends on the above and clinical course Thank you for consultation A total of 75 minutes was spent reviewing the patient record, examining the patient, making a diagnostic and therapeutic plan, discussing this plan with medical personnel, following up on diagnostic studies and following the patient for clinical stability excluding any and all procedures. At least 50% of this time was spent in direct, [id number] contact. Thank you for allowing me to participate in this patient's care. Further recommendations will depend on patient's clinical course. Please do not hesitate to contact me if you have any questions or concerns. This medical document was created using electronic medical record system with [employer] computerized dictation system. Although this document has been carefully reviewed, there may still be some phonetic and typographical errors. These areas are purely typographical due to the imperfection of the software programs, and do not reflect any compromise in the patient's medical care. Plan discussed with: Patient, Other (nurse) GIOVANNA PIZARRO MD Oct 08, 2024 09:46
[2024-10-08] MEDS: FUROSEMIDE 100 MG/10ML VIAL IV SCH (09:48)
[2024-10-08] MEDS: POTASSIUM CHL 20 Meq TABLET PO ONE (09:48)
[2024-10-08] MEDS: ENOXAPARIN SOD 100 MG/1 ML SYRINGE SC SCH (10:00)
[2024-10-08] MEDS ORDERED: FUROSEMIDE 40 MG/4 ML VIAL IV SCH (10:00)
--- NOTE | 2024-10-08 11:56 | DVH ---
Indication: generalized weakness in bilaterial lower extremities. Technique: Real- time ultrasound images of the bilateral lower extremity with grayscale, color, and spectral wave Doppler. Comparison: US BILAT LOWER DVT on DOS: 10/07/24 Findings: Biphasic waveforms right BRAILLE TRANSLATOR. Biphasic waveform right SFA and popliteal artery. Monophasic waveform right posterior tibial artery. Biphasic waveform right dorsalis pedis artery. Monophasic waveform left BRAILLE TRANSLATOR. Monophasic waveform left SFA, popliteal, posterior tibial, anterior tib ial arteries Peak systolic velocities are as follows (in cm/s): Right: Common femoral artery: 45 Profunda femoris: 55 Proximal superficial femoral: 60 Mid superficial femoral artery: 106 Distal superficial femoral artery: 42 Popliteal artery: 32 Posterior tibial artery: 14 Dorsalis pedis artery: 38 Left: Common femoral artery: 9 Profunda femoris: 233 Proximal superficial femoral: 26 Mid superficial femoral artery: 27 Distal superficial femoral artery: 15 Popliteal artery: 22 Posterior tibial artery: 7 Dorsalis pedis artery: 12 Impression: Severe left lower extremity peripheral arterial disease Severe stenosis/ near occlusion of the left BRAILLE TRANSLATOR and high-grade stenosis at the BRAILLE TRANSLATOR bifurcation. Ortiz mmend CT angiogram of the lower extremities to further evaluate. Diffusely diminished velocities within the left lower extremity secondary to the left BRAILLE TRANSLATOR high-grade stenosis High-grade stenoses involving the right infrapopliteal/ tibial vasculature.
--- NOTE | 2024-10-08 13:00 | DVHPN2 ---
Progress Note - Dictate Date Seen: Oct 08, 2024 Has the PT tested + for MRSA If YES, has PT been informed?: No Medical Necessity Reason Pt with a Central, PICC or Fol: No vital signs Vital Sign Date Time Temp Pulse Resp B/P (MAP) Pulse Ox O2 Delivery O2 Flow Rate FiO2 10/08/24 11:21 97.8 64 19 119/113 (115) 97 97.8 medications Current Medications Medications Dose Ordered Sig/[place] Route Start Time Stop Time Status Last Admin Dose Admin Acetaminophen/ Hydrocodone Bitart 1 tab Q4HP PRN PO 10/07/24 23:00 Ondansetron HCl 4 mg Q4HP PRN IV 10/07/24 23:00 Zinc Sulfate 220 mg DAILY PO 10/08/24 10:00 10/08/24 09:46 Ascorbic Acid 500 mg BID PO 10/08/24 10:00 10/08/24 09:46 Multivitamins 1 tab DAILY PO 10/08/24 10:00 10/08/24 09:46 Morphine Sulfate 2 mg Q4HPRN PRN IV 10/07/24 23:00 Nitroglycerin 0.4 mg Q5MINP PRN SL 10/07/24 23:00 10/08/24 00:46 Morphine Sulfate 2 mg Q30M PRN IV 10/07/24 23:00 Furosemide 80 mg DAILY IV 10/08/24 10:00 10/08/24 09:48 Enoxaparin Sodium 90 mg DAILY SC 10/08/24 10:00 UNV Hydralazine HCl 10 mg Q6HR PRN IV 10/08/24 12:00 Levothyroxine Sodium 100 mcg DAILY PO 10/09/24 10:00 UNV Pantoprazole Sodium 40 mg DAILY PO 10/09/24 10:00 UNV Patient Own Medication 1 tab BID PO 10/08/24 22:00 UNV Patient Own Medication 1 tab DAILY PO 10/09/24 10:00 UNV objective General Appearance: alert, no distress HEENT: EOMI, PERRLA, normal external inspect of ears, no icterus, no nasal drainage Neck: no carotid bruit, no jugular venous distention (JVD), no lymphadenopathy Chest: normal thorax Respiratory: clear to auscultation, normal air movement Cardiovascular: regular rate and rhythm, no diastolic murmur, no jugular venous distention (JVD), no rub, no systolic murmur Abdominal: soft, no hepatomegaly, no mass, no splenomegaly, no tenderness Genitourinary: grossly normal external Musculoskeletal: no joint tenderness, no swelling Extremities: normal pulses, no calf tenderness, no clubbing, no cyanosis, no edema Skin: no bruising, no jaundice, no rash Neurological: alert, No focal deficit laboratory and microbiology Laboratory Tests 10/08/24 05:39 Test 10/08/24 05:39 Range/Units Serum Glucose 222 H 74-106 mg/dL Problem List 1. COPD Monitor, prn med neb tx 2. Smoker Monitor, smoking cessation 3. Elevated troponin Monitor, trend troponin, cardiology consult 4. Elevated d-dimer Monitor, VQ scan 5.CKD IV Monitor, nephrology consult 6. PAD Monitor, vascular consult 7. Polysubstance abuse Monitor, daily labs 8. Cellulitis BLE Monitor, IV abx Assessment/Plan Subjective Patient is awake and alert. Objective Patient was admitted for ALOC. Patient was found to have elevated troponin most likely demand ischemia. Patient has a history of polysubstance abuse. Urine drug screen is pending. Patient also has elevated D-dimer however he has a history of CKD stage IIIb or possibly CKD stage IV. Patient has chronic nonhealing wounds with cellulitis to his bilateral lower extremities. Venous ultrasounds negative for DVT. Arterial Doppler shows severe stenosis to his left lower extremity. I did reach out to vascular surgeon. Plan Vascular surgery consult. Continue antibiotics for cellulitis. Monitor on EKG. Cardiology evaluation. Echocardiogram is pending. Obtain VQ scan to rule out PE for elevated D-dimer. Plan discussed with: Patient, Other BETTY GARCIA NP Oct 08, 2024 13:00
--- NOTE | 2024-10-08 13:00 | DVHHP2 ---
Admitting Diagnosis: Generalized weakness History of Present Illness 64 yo male patient with a hx of HTN, CAD, CHF, and COPD c/o lower extremity for over 2 months. Patient reports his feet being swollen and painful causing him difficulty ambulating. Patient also had some SOB on exertion. While in the emergency department the patient was evaluated by the provider, As per provider: Labs, vital signs, and imagining monitored. Patient will be admitted for further evaluation and treatment. I discussed admission with the patient/family and is in agreement to treatment plan. Patient Family History: Diabetes mellitus G8 MOTHER G8 FATHER Allergies: Coded Allergies: NO KNOWN ALLERGIES (Unverified , 04/10/15) Home Meds Active Scripts Lidocaine Hcl (Lidocaine) 3 % Cre, 3 % EX TID for 10 Days, #28.3 GRAMS Apply a thin layer to the affected area 3 times daily Prov:BRAEDEN DELACRUZ 11/19/23 Valacyclovir Hcl (Valtrex) 1 Gm Tab, 1 TAB PO TID for 7 Days, #21 TAB Prov:BRAEDEN DELACRUZ 11/19/23 Cholecalciferol (Vitamin D3 Super Strength) 2,000 Unit Cap, 4000 UNIT PO DAILY for 30 Days, #30 CAP Prov:DARION JAEGER MD 04/09/21 Isosorbide Mononitrate (Isosorbide Mononitrate Er) 30 Mg Tab, 1 TAB PO DAILY, #30 TAB Prov:BETHANIE YANES MD 02/23/21 Levothyroxine Sodium (SYNTHROID TABLET) 100 Mcg Tb, 1 TAB PO DAILY, #30 TAB Prov:BETHANIE YANES MD 02/23/21 Pantoprazole Sodium Sesquihydr (Protonix) 40 Mg Tab, 40 MG PO DAILY, #30 TAB Prov:BETHANIE YANES MD 02/23/21 Furosemide (Lasix) 40 Mg Tab, 40 MG PO DAILY for 30 Days, #30 TAB Prov:BETHNAIE YANES MD 02/23/21 Carvedilol (Coreg) 6.25 Mg Tab, 1 TAB PO BID, #60 TAB Prov:BETHANIE YANES MD 02/23/21 Nicotine (Nicoderm 21MG/24HR) 1 Patch Ph, 1 PATCH TOP DAILY, #28 PATCH Prov:BETHANIE YANES MD 01/02/21 Reported Medications Amiodarone Hcl (Amiodarone Hcl) 200 Mg Tab, 200 MG PO DAILY 02/17/21 Albuterol Sulfate (VENTOLIN MDI) 90 Mcg Ih, 2 PUFF IN Q6HP PRN for SHORTNESS OF BREATH for 30 Days, MCG 02/17/21 Aspirin (Aspirin) 81 Mg Tab, 1 TAB PO DAILY 12/27/20 Insulin Glargine (Basaglar Kwikpen) 100 Unit/Ml Inj, 20 UNITS SC DAILY 12/27/20 Apixaban Base (ELIQUIS) 5 Mg Tab, 1 TAB PO BID 12/27/20 Metformin Hydrochloride (Metformin Hcl) 1,000 Mg Tab, 1 TAB PO BID 12/27/20 Current Medications Current Medications Medications (Trade) Dose Ordered Sig/Sienna Route PRN Reason Start Time Stop Time Status Last Admin Acetaminophen/ Hydrocodone Bitart ([place] 5/325MG Tab) 1 tab Q4HP PRN PO MODERATE PAIN (4-6 PAIN SCALE) 10/07/24 23:00 Ondansetron HCl (Zofran) 4 mg Q4HP PRN IV NAUSEA / VOMITING 10/07/24 23:00 Zinc Sulfate 220 mg DAILY PO 10/08/24 10:00 10/08/24 09:46 Ascorbic Acid (Vitamin C Tablet) 500 mg BID PO 10/08/24 10:00 10/08/24 09:46 Multivitamins (Mvi Tab) 1 tab DAILY PO 10/08/24 10:00 10/08/24 09:46 Morphine Sulfate 2 mg Q4HPRN PRN IV SEVERE PAIN (7-10 PAIN SCALE) 10/07/24 23:00 Nitroglycerin (Ntrostat Sublingual) 0.4 mg Q5MINP PRN SL FOR CHEST PAIN 10/07/24 23:00 10/08/24 00:46 Morphine Sulfate 2 mg Q30M PRN IV FOR CHEST PAIN 10/07/24 23:00 Furosemide (Lasix Injection) 40 mg DAILY IV 10/08/24 10:00 10/08/24 09:21 DC Furosemide (Lasix Injection) 80 mg DAILY IV 10/08/24 10:00 10/08/24 09:48 Enoxaparin Sodium (Lovenox) 90 mg DAILY SC 10/08/24 10:00 Hydralazine HCl (Apresoline Injection) 10 mg Q6HR PRN IV SBP>150 10/08/24 12:00 10/08/24 13:02 Levothyroxine Sodium (Synthroid Tablet) 100 mcg DAILY PO 10/09/24 10:00 10/08/24 13:45 DC Pantoprazole Sodium (Protonix Tablet) 40 mg DAILY PO 10/09/24 10:00 Patient Own Medication 1 tab BID PO 10/08/24 22:00 UNV Patient Own Medication 1 tab DAILY PO 10/09/24 10:00 UNV Levothyroxine Sodium (Synthroid Tablet) 100 mcg QAM PO 10/09/24 07:00 Isosorbide Mononitrate (Imdur Er Tablet) 30 mg DAILY PO 10/09/24 10:00 Carvedilol (Coreg Tablet) 6.25 mg BID PO 10/08/24 22:00 Ipratropium [place] (Atrovent Medneb) 0.5 mg Q4HPRN PRN NEB SHORTNESS OF BREATH 10/08/24 15:30 Piperacillin Sod/ Tazobactam Sod 100 ml @ 25 mls/hr Q12HR IV 10/08/24 22:00 Review of Systems Constitutional: denies chills, denies fever, denies malaise Eyes: denies eye pain, denies vision change ENT: denies ear pain, denies headache, denies nasal congestion, denies painful swallowing, denies voice change Cardiovascular: denies chest pain, denies edema, denies orthopnea, denies palpitations, denies paroxysmal nocturnal dyspnea Respiratory: denies cough, denies shortness of breath Gastrointestinal: denies constipation, denies diarrhea, denies nausea, denies vomiting Genitourinary: denies dysuria, denies frequent urination, denies urethral discharge Musculoskeletal: denies back pain, denies joint pain, denies muscle pain Skin: denies bruising, denies itching, denies rash Neurological: denies focal weakness, denies headache, denies sensory changes Psychiatric: denies anxiety, denies depression Endocrine: denies polydipsia, denies polyuria Hematologic/Lymphatic: denies easy bleeding, denies easy bruising, denies enlarged lymph nodes Allergic/Immunologic: denies allergy, denies hives Vital Signs Vital Signs Date Time Temp Pulse Resp B/P (MAP) Pulse Ox O2 Delivery O2 Flow Rate FiO2 10/08/24 16:45 98.2 66 19 169/108 (128) 98 98.2 10/08/24 11:21 Room Air* 0 21 Physical Exam General Appearance: alert, no distress HEENT: EOMI, PERRLA, normal external inspect of ears, no icterus, no nasal drainage Neck: no carotid bruit, no jugular venous distention (JVD), no lymphadenopathy Chest: normal thorax Respiratory: clear to auscultation, normal air movement Cardiovascular: regular rate and rhythm, no diastolic murmur, no jugular venous distention (JVD), no rub, no systolic murmur Abdominal: soft, no hepatomegaly, no mass, no splenomegaly, no tenderness Genitourinary: grossly normal external Musculoskeletal: no joint tenderness, no swelling Extremities: normal pulses, no calf tenderness, no clubbing, no cyanosis, no edema Skin: no bruising, no jaundice, no rash Neurological: alert, No focal deficit SEPSIS Sepsis Screen Date sepsis recognized/suspect: Oct 07, 2024 Time Sepsis recognized/suspect: 1724 Recent Procedure: No On Antibiotic Therapy: No Respiratory Rate >20: No Heart Rate >90: No Temp<36 C (96.8 F) or >38.3 C: No SBP <90 or MAP <65 mmHG: No New Acute Mental Status Change: No Is the patient on CPAP, BIPAP,: No Physician Orders Chest Portable (10/07/24 18:00) Electrocardigram (10/07/24 18:00) Head Without Contrast (10/07/24 18:00) Bilat Lower Dvt (10/07/24 19:14) Blood Culture (10/07/24 19:15) Admit (10/07/24 22:59) Hydrocodone-Acet 5/325mg Tab ([place] 5/32 (10/07/24 23:00) Ondansetron Hcl (Zofran) (10/07/24 23:00) Zinc Sulfate (10/08/24 10:00) Ascorbic Acid Tablet (Vitamin C Tablet) (10/08/24 10:00) Multiple Vitamin Tablet (Mvi Tab) (10/08/24 10:00) Cardiac Diet-2gna,Lofat,Lochol (10/08/24 Breakfast) Morphine Sulfate Injection (10/07/24 23:00) Nitroglycerin Sublingual (Ntrostat Subli (10/07/24 23:00) Morphine Sulfate Injection (10/07/24 23:00) Stat Ekg For Chest Pain (10/07/24 22:59) Notify Of Changes From Base (10/07/24 22:59) Planner/Scheduler For 24 Hours (10/07/24 22:59) Emergency Dysrhythmia Protocol (10/07/24 22:59) Rhythm Strips Once Every Shift (10/07/24 22:59) Oxygen By Nasal Cannula (10/07/24 22:59) * Cardiology Consult (10/07/24 23:03) Furosemide Injection (Lasix Injection) (10/08/24 10:00) Drug Screen (10/08/24 09:02) Echo 2d Mode Cardiac Dop (10/08/24 09:02) Bilat Low Ext Art Duplex (10/08/24 09:02) Enoxaparin Sodium (Lovenox) (10/08/24 10:00) Hydralazine Injection (Apresoline Inject (10/08/24 12:00) Pantoprazole Tablet (Protonix Tablet) (10/09/24 10:00) *[facility] (10/08/24 12:58) Levothyroxine Tablet (Synthroid Tablet) (10/09/24 07:00) Isosorbide Mononitrate Tablet (Imdur Er (10/09/24 10:00) Carvedilol Tablet (Coreg Tablet) (10/08/24 22:00) Consult Vascular/Endovascular (10/08/24 15:27) Ipratropium Medneb (Atrovent Medneb) (10/08/24 15:30) Med Neb Initial Treatment (10/08/24 15:27) Nm Vq Scan (10/08/24 15:27) Piperacillin-Tazob 3.375gm (Zosyn 3.375g (10/08/24 22:00) Vital Signs Date Time Temp Pulse Resp B/P (MAP) Pulse Ox O2 Delivery O2 Flow Rate FiO2 10/08/24 16:45 98.2 66 19 169/108 (128) 98 98.2 10/08/24 13:02 188/96 10/08/24 13:00 97.4 58 19 161/93 (115) 96 97.4 10/08/24 11:21 97.8 64 19 119/113 (115) 97 97.8 10/08/24 11:21 Room Air* 0 21 10/08/24 10:16 64 19 190/113 (138) 97 10/08/24 09:48 161/100 10/08/24 09:00 55 13 123/43 (69) 94 10/08/24 08:00 67 10/08/24 06:49 163/93 (116) 10/08/24 05:09 85 17 170/90 (116) 93 10/08/24 04:15 175/100 10/08/24 04:00 77 10/08/24 03:45 82 18 175/100 (125) 92 10/08/24 00:46 196/95 10/08/24 00:46 196/95 10/08/24 00:00 54 10/07/24 23:54 97.7 70 14 217/117 (150) 97 97.7 10/07/24 19:22 82 10/07/24 17:25 98.3 88 18 183/125 97 98.3 Laboratory Tests Test 10/07/24 18:44 10/07/24 19:47 10/08/24 05:39 White Blood Count 7.3 10^3/uL (4.4-10.8) 7.1 10^3/uL (4.4-10.8) Lactic Acid Level 1.8 mmol/L (0.4-2.0) Medications Medications Dose Ordered Sig/[place] Route Start Time Stop Time Status Last Admin Dose Admin Hydralazine HCl 10 mg Q6HR PRN IV 10/08/24 12:00 10/08/24 13:02 Results Labs Test 10/08/24 05:59 10/08/24 05:39 10/07/24 23:59 10/07/24 21:56 Range/Units D-Dimer, Quantitative 1.57 H 0.0-0.49 mg/L FEU White Blood Count 7.1 4.4-10.8 10^3/uL Red Blood Count 4.62 4.5-5.90 10^6/uL Hemoglobin 13.6 13.5-17.5 g/dL Hematocrit 40.2 #L 41.0-53.0 % Mean Corpuscular Volume 86.9 80.0-100.0 fL Mean Corpuscular Hemoglobin 29.4 28.0-32.0 pg Mean Corpuscular Hemoglobin Concent 33.9 32.0-36.0 g/dL Red Cell Distribution Width 16.1 H 11.8-14.3 % Platelet Count 121 L 140-450 10^3/uL Mean Platelet Volume 8.5 6.9-10.8 fL Neutrophils (%) (Auto) 61.8 37.0-80.0 % Lymphocytes (%) (Auto) 22.5 10.0-50.0 % Monocytes (%) (Auto) 11.0 0.0-12.0 % Eosinophils (%) (Auto) 3.7 0.0-7.0 % Basophils (%) (Auto) 1.0 0.0-2.0 % Neutrophils # (Auto) 4.4 1.6-8.6 10 ^3/uL Lymphocytes # (Auto) 1.6 0.4-5.4 10 ^3/uL Monocytes # (Auto) 0.8 0-1.3 10 ^3/uL Eosinophils # (Auto) 0.3 0-0.8 10 ^3/uL Basophils # (Auto) 0.1 0-0.2 10 ^3/uL Nucleated Red Blood Cells 0.1 % Sodium Level 139 136-145 mmol/L Potassium Level 3.3 L 3.5-5.1 mmol/L Chloride Level 101 98-107 mmol/L Carbon Dioxide Level 28 20-31 mmol/L Anion Gap 10 5-15 Blood Urea Nitrogen 32 H 9-23 mg/dL Creatinine 2.48 H 0.700-1.30 mg/dL Glomerular Filtration Rate Calc 28 >90 mL/min BUN/Creatinine Ratio 12.9 10.0-20.0 Serum Glucose 222 H 74-106 mg/dL Calcium Level 9.4 8.7-10.4 mg/dL Total Bilirubin 0.5 0.2-1.0 mg/dL Aspartate Amino Transferase (AST) 27 13-40 U/L Alanine Aminotransferase (ALT) 31 7-40 U/L Alkaline Phosphatase 123 H 46-116 U/L Total Protein 7.3 5.7-8.2 g/dL Albumin 4.1 3.2-4.8 g/dL Urine Color Yellow Yellow Urine Clarity Clear Clear Urine pH 5.5 5.0-9.0 Urine Specific [place] 1.021 1.001-1.035 Urine Protein 1+ H Negative Urine Ketones Negative Negative Urine Blood Negative Negative /uL Urine Nitrite Negative Negative Urine Bilirubin Negative Negative Urine Urobilinogen Normal Negative mg/dL Urine Leukocyte Esterase Negative Negative /uL Urine RBC 2 0 - 3 /hpf Urine Microscopic WBC 1 0-3 /HPF Urine Squamous Epithelial Cells Few <5 /hpf Urine Bacteria None seen None Seen /hpf Urine Hyaline Casts Few 0 - 2 /lpf Urine Mucus Few None Seen Urine Glucose 2+ H Normal mg/dL Troponin I High Sensitivity 72 *H </=54 ng/L Test 10/07/24 19:47 10/07/24 18:44 Range/Units Lactic Acid Level 1.8 0.4-2.0 mmol/L B-Type Natriuretic Peptide 155.84 0-100 pg/mL Microbiology Date/Time Source Procedure Growth Status 10/07/24 19:47 Blood Blood Culture - Preliminary NO GROWTH AFTER 24 HOURS OF INCUBATION. Resulted Plan 1. COPD Monitor, prn med neb tx 2. Smoker Monitor, smoking cessation 3. Elevated troponin Monitor, trend troponin, cardiology consult 4. Elevated d-dimer Monitor, VQ scan 5.CKD IV Monitor, nephrology consult 6. PAD Monitor, vascular consult 7. Polysubstance abuse Monitor, daily labs 8. Cellulitis BLE Monitor, IV abx Plan discussed with: Patient, Other RADHABETTY Isaura JIN Oct 08, 2024 13:00
[2024-10-08] MEDS: hydrALAZINE HCL 20 MG/ML VL IV PRN (13:02)
[2024-10-08] MEDS ORDERED: IPRATROPIUM BROM 0.5 MG/2.5ML INH SOL NEB PRN (15:30)
--- NOTE | 2024-10-08 16:01 | DVHCONRES ---
Date Seen: Oct 08, 2024 Resident Creating Document: SHELLEY BRYAN Jr., MD Referring Physician edna Reason for Consultation leg pain History of Present Illness Patient is a 64-year-old gentleman who presented to the hospital with 2-1/2-3 months of bilateral lower extremities weakness some feet swelling and also pain. Mentions dyspnea on exertion. He is poor historian. He is disheveled. He do es not follow with physicians/cardiologists. Mentions history of heart attack/heart failure. Last cardiology visit was over years ago in the hospital. Denies any recent chest pains. Denies taking medications. Does smoke cigarette and use amphetamine. Patient states he has pain in his feet bilaterally no side is worse than the other. Pain is with standing. He says his ankles and toes heard. He denies any true claudication symptoms. No ulcerations or rest pain Past Medical History diabetes, CAD, mi, CHF and COPD on home O2 Family History: Diabetes mellitus G8 MOTHER G8 FATHER Social History Patient has smoked cigarettes as well as methamphetamine. Allergies: Coded Allergies: NO KNOWN ALLERGIES (Unverified , 04/10/15) Home Meds Active Scripts Lidocaine Hcl (Lidocaine) 3 % Cre, 3 % EX TID for 10 Days, #28.3 GRAMS Apply a thin layer to the affected area 3 times daily Prov:BRAEDEN DELACRUZ [facility] 11/19/23 Valacyclovir Hcl (Valtrex) 1 Gm Tab, 1 TAB PO TID for 7 Days, #21 TAB Prov:BRAEDEN DELACRUZ [facility] 11/19/23 Cholecalciferol (Vitamin D3 Super Strength) 2,000 Unit Cap, 4000 UNIT PO DAILY for 30 Days, #30 CAP Prov:DARION JAEGER MD 04/09/21 Isosorbide Mononitrate (Isosorbide Mononitrate Er) 30 Mg Tab, 1 TAB PO DAILY, #30 TAB Prov:BETHANIE YANES MD 02/23/21 Levothyroxine Sodium (SYNTHROID TABLET) 100 Mcg Tb, 1 TAB PO DAILY, #30 TAB Prov:BETHANIE YANES MD 02/23/21 Pantoprazole Sodium Sesquihydr (Protonix) 40 Mg Tab, 40 MG PO DAILY, #30 TAB Prov:BETHANIE YANES MD 02/23/21 Furosemide (Lasix) 40 Mg Tab, 40 MG PO DAILY for 30 Days, #30 TAB Prov:BETHANIE YANES MD 02/23/21 Carvedilol (Coreg) 6.25 Mg Tab, 1 TAB PO BID, #60 TAB Prov:BETHANIE YANES MD 02/23/21 Nicotine (Nicoderm 21MG/24HR) 1 Patch Ph, 1 PATCH TOP DAILY, #28 PATCH Prov:BETHANIE YANES MD 01/02/21 Reported Medications Amiodarone Hcl (Amiodarone Hcl) 200 Mg Tab, 200 MG PO DAILY 02/17/21 Albuterol Sulfate (VENTOLIN MDI) 90 Mcg Ih, 2 PUFF IN Q6HP PRN for SHORTNESS OF BREATH for 30 Days, MCG 02/17/21 Aspirin (Aspirin) 81 Mg Tab, 1 TAB PO DAILY 12/27/20 Insulin Glargine (Basaglar Kwikpen) 100 Unit/Ml Inj, 20 UNITS SC DAILY 12/27/20 Apixaban Base (ELIQUIS) 5 Mg Tab, 1 TAB PO BID 12/27/20 Metformin Hydrochloride (Metformin Hcl) 1,000 Mg Tab, 1 TAB PO BID 12/27/20 Current Medications Current Medications Medications (Trade) Dose Ordered Sig/Sienna Route PRN Reason Start Time Stop Time Status Last Admin Acetaminophen/ Hydrocodone Bitart ([place] 5/325MG Tab) 1 tab Q4HP PRN PO MODERATE PAIN (4-6 PAIN SCALE) 10/07/24 23:00 Ondansetron HCl (Zofran) 4 mg Q4HP PRN IV NAUSEA / VOMITING 10/07/24 23:00 Zinc Sulfate 220 mg DAILY PO 10/08/24 10:00 10/08/24 09:46 Ascorbic Acid (Vitamin C Tablet) 500 mg BID PO 10/08/24 10:00 10/08/24 09:46 Multivitamins (Mvi Tab) 1 tab DAILY PO 10/08/24 10:00 10/08/24 09:46 Morphine Sulfate 2 mg Q4HPRN PRN IV SEVERE PAIN (7-10 PAIN SCALE) 10/07/24 23:00 Nitroglycerin (Ntrostat Sublingual) 0.4 mg Q5MINP PRN SL FOR CHEST PAIN 10/07/24 23:00 10/08/24 00:46 Morphine Sulfate 2 mg Q30M PRN IV FOR CHEST PAIN 10/07/24 23:00 Furosemide (Lasix Injection) 40 mg DAILY IV 10/08/24 10:00 10/08/24 09:21 DC Furosemide (Lasix Injection) 80 mg DAILY IV 10/08/24 10:00 10/08/24 09:48 Enoxaparin Sodium (Lovenox) 90 mg DAILY SC 10/08/24 10:00 Hydralazine HCl (Apresoline Injection) 10 mg Q6HR PRN IV SBP>150 10/08/24 12:00 10/08/24 13:02 Levothyroxine Sodium (Synthroid Tablet) 100 mcg DAILY PO 10/09/24 10:00 10/08/24 13:45 DC Pantoprazole Sodium (Protonix Tablet) 40 mg DAILY PO 10/09/24 10:00 Patient Own Medication 1 tab BID PO 10/08/24 22:00 UNV Patient Own Medication 1 tab DAILY PO 10/09/24 10:00 UNV Levothyroxine Sodium (Synthroid Tablet) 100 mcg QAM PO 10/09/24 07:00 Isosorbide Mononitrate (Imdur Er Tablet) 30 mg DAILY PO 10/09/24 10:00 Carvedilol (Coreg Tablet) 6.25 mg BID PO 10/08/24 22:00 Ipratropium [place] (Atrovent Medneb) 0.5 mg Q4HPRN PRN NEB SHORTNESS OF BREATH 10/08/24 15:30 Piperacillin Sod/ Tazobactam Sod 100 ml @ 25 mls/hr Q12HR IV 10/08/24 22:00 UNV Review of Systems All systems reviewed otherwise negative other than what is in HPI. Vital Signs Vital Signs Date Time Temp Pulse Resp B/P (MAP) Pulse Ox O2 Delivery O2 Flow Rate FiO2 10/08/24 13:02 188/96 10/08/24 13:00 97.4 58 19 96 97.4 10/08/24 11:21 Room Air* 0 21 Physical Exam Head eyes ears nose and throat exam eyes are nonicteric conjunctiva is pink neck was supple no JVD no lymphadenopathy no carotid bruits lungs are clear to auscultation heart was regular rate and rhythm abdomen is soft nontender with no pulsatile abdominal mass or bruits lower extremities palpable femoral pulses palpable pedal pulses in the right side weakly palpable DP on the left. No signs of ulcerations. No skin breakdown. No signs of cellulitis. No edema. Labs/Diagnostic Data Labs Test 10/08/24 05:59 10/08/24 05:39 10/07/24 23:59 10/07/24 21:56 Range/Units D-Dimer, Quantitative 1.57 H 0.0-0.49 mg/L FEU White Blood Count 7.1 4.4-10.8 10^3/uL Red Blood Count 4.62 4.5-5.90 10^6/uL Hemoglobin 13.6 13.5-17.5 g/dL Hematocrit 40.2 #L 41.0-53.0 % Mean Corpuscular Volume 86.9 80.0-100.0 fL Mean Corpuscular Hemoglobin 29.4 28.0-32.0 pg Mean Corpuscular Hemoglobin Concent 33.9 32.0-36.0 g/dL Red Cell Distribution Width 16.1 H 11.8-14.3 % Platelet Count 121 L 140-450 10^3/uL Mean Platelet Volume 8.5 6.9-10.8 fL Neutrophils (%) (Auto) 61.8 37.0-80.0 % Lymphocytes (%) (Auto) 22.5 10.0-50.0 % Monocytes (%) (Auto) 11.0 0.0-12.0 % Eosinophils (%) (Auto) 3.7 0.0-7.0 % Basophils (%) (Auto) 1.0 0.0-2.0 % Neutrophils # (Auto) 4.4 1.6-8.6 10 ^3/uL Lymphocytes # (Auto) 1.6 0.4-5.4 10 ^3/uL Monocytes # (Auto) 0.8 0-1.3 10 ^3/uL Eosinophils # (Auto) 0.3 0-0.8 10 ^3/uL Basophils # (Auto) 0.1 0-0.2 10 ^3/uL Nucleated Red Blood Cells 0.1 % Sodium Level 139 136-145 mmol/L Potassium Level 3.3 L 3.5-5.1 mmol/L Chloride Level 101 98-107 mmol/L Carbon Dioxide Level 28 20-31 mmol/L Anion Gap 10 5-15 Blood Urea Nitrogen 32 H 9-23 mg/dL Creatinine 2.48 H 0.700-1.30 mg/dL Glomerular Filtration Rate Calc 28 >90 mL/min BUN/Creatinine Ratio 12.9 10.0-20.0 Serum Glucose 222 H 74-106 mg/dL Calcium Level 9.4 8.7-10.4 mg/dL Total Bilirubin 0.5 0.2-1.0 mg/dL Aspartate Amino Transferase (AST) 27 13-40 U/L Alanine Aminotransferase (ALT) 31 7-40 U/L Alkaline Phosphatase 123 H 46-116 U/L Total Protein 7.3 5.7-8.2 g/dL Albumin 4.1 3.2-4.8 g/dL Urine Color Yellow Yellow Urine Clarity Clear Clear Urine pH 5.5 5.0-9.0 Urine Specific [place] 1.021 1.001-1.035 Urine Protein 1+ H Negative Urine Ketones Negative Negative Urine Blood Negative Negative /uL Urine Nitrite Negative Negative Urine Bilirubin Negative Negative Urine Urobilinogen Normal Negative mg/dL Urine Leukocyte Esterase Negative Negative /uL Urine RBC 2 0 - 3 /hpf Urine Microscopic WBC 1 0-3 /HPF Urine Squamous Epithelial Cells Few <5 /hpf Urine Bacteria None seen None Seen /hpf Urine Hyaline Casts Few 0 - 2 /lpf Urine Mucus Few None Seen Urine Glucose 2+ H Normal mg/dL Troponin I High Sensitivity 72 *H </=54 ng/L Test 10/07/24 19:47 10/07/24 18:44 Range/Units Lactic Acid Level 1.8 0.4-2.0 mmol/L B-Type Natriuretic Peptide 155.84 0-100 pg/mL Indication: generalized weakness in bilaterial lower extremities. Technique: Real- time ultrasound images of the bilateral lower extremity with grayscale, color, and spectral wave Doppler. Comparison: US BILAT LOWER DVT on DOS: 10/07/24 Findings: Biphasic waveforms right MANAGER OF ORGANIZATIONAL DEVELOPMENT. Biphasic waveform right SFA and popliteal artery. Monophasic waveform right posterior tibial artery. Biphasic waveform right dorsalis pedis artery. Monophasic waveform left MANAGER OF [employer]GANIZATIONAL DEVELOPMENT. Monophasic waveform left SFA, popliteal, posterior tibial, anterior tibial arteries Peak systolic velocities are as follows (in cm/s): Right: Common femoral artery: 45 Profunda femoris: 55 Proximal superficial femoral: 60 Mid superficial femoral artery: 106 Distal superficial femoral artery: 42 Popliteal artery: 32 Posterior tibial artery: 14 Dorsalis pedis artery: 38 Left: Common femoral artery: 9 Profunda femoris: 233 Proximal superficial femoral: 26 Mid superficial femoral artery: 27 Distal superficial femoral artery: 15 Popliteal artery: 22 Posterior tibial artery: 7 Dorsalis pedis artery: 12 Impression: Severe left lower extremity peripheral arterial disease Severe stenosis/ near occlusion of the left MANAGER [employer]GAN[employer] DEVELOPMENT and high-grade stenosis at the MANAGER OF ORGANIZATIONAL DEVELOPMENT bifurcation. Recommend CT angiogram of the lower extremities to further evaluate. Diffusely diminished velocities within the left lower extremity secondary to the left MANAGER [employer]GANIZATIONAL DEVELOPMENT high-grade stenosis High-grade stenoses involving the right infrapopliteal/ tibial vasculature. Assessment Bilateral feet pain. Chronic smoker with methamphetamine use. With ultrasound findings consistent with peripheral vascular disease. No urgency for any intervention at this time. Would work on patient's risk factors prior to any surgical or endovascular procedure. Recommend quit smoking control of cholesterol and blood pressure and diabetes. Plan/Recommendation Bilateral feet pain. Chronic smoker with methamphetamine use. With ultrasound findings consistent with peripheral vascular disease. No urgency for any intervention at this time. Would work on patient's risk factors prior to any surgical or endovascular procedure. Recommend quit smoking control of cholesterol and blood pressure and diabetes. Plan discussed with: Patient SHELLEY BRYAN Jr., MD Oct 08, 2024 16:01
--- NOTE | 2024-10-08 18:30 | DVHSR ---
APPROVED REPORT EXAM: Two-dimensional and M-mode echocardiogram with Doppler and color Doppler. Blood Pressure: 163/93 mmHg INDICATION Elevated troponins RISK FACTORS Height: 6'0", Weight: 200 DIMENSIONS LVDd4.0 (3.8-5.7cm)LA (2D)3.9 (1.9-4.0cm)Aortic Root3.8 (2.0-3.7cm) LVDs3.4 (2.5-4.0cm)LA (MM) (1.9-4.0cm)Aortic Cusp Exc1.7 (1.5-2.0cm) EF (%) 30.0 (55-70%)Rt. Atrium4.0 (1.9-4.0cm)Asc. Aorta cm IVSd1.1 (0.7-1.1cm)RV (D) (1.8-2.4cm) PWd1.3 (0.7-1.1cm) Mitral Valve MitralMitral Stenosis E wave0.40m/sMV Mean GR.mmHg A wave0.70m/sMV Peak GR.mmHg E/A ratio0.62D MVAcm2 DECEL [id number] 1/2 [place] Aortic Valve Aortic ValveAortic Stenosis V10.71m/Nori Mean GR.2mmHg V20.92m/Nori Peak GR.3mmHg LVOT Diameter2.0 (1.8-2.4cm)Doppler AVA2.42cm2 Other Information Technically limited study due to body habitus and patient position. Conclusion Left ventricle: Mild concentric left ventricular hypertrophy was seen. Left ventricular systolic fu nction was mildly reduced. LVEF was around 40%. Diffuse hypokinesis of left ventricle was seen. Ab normal relaxation of left ventricular diastolic function was seen. Right ventricle was mildly dilated with reduced systolic function. Both atria were mildly dilated. Aortic valve was not well visualized. There was trace aortic insufficiency. There was no aortic nithin nosis. There was trace to mild mitral regurgitation. There was no tricuspid regurgitation. Pulmona ry valve was not well visualized. As there was no good tricuspid regurgitation jet, right ventricular systolic pressure could not be es timated. There was no pericardial effusion Aortic root was mildly dilated at 3.8 cm.
[2024-10-08] MEDS: CARVEDILOL 3.125 MG TAB PO SCH (21:54)
[2024-10-08] MEDS: PIPERACILLIN-TAZOB 3.375GM 100 ML IV SCH (21:59)
[2024-10-08] MEDS ORDERED: PATIENTS OWN MEDICATION (Carvedilol (Coreg) 1 TAB) PO SCH (22:00)
[2024-10-08 22:19] LABS: Amphetamine Screen, Urine Pos (NEGATIVE); Barbiturate Scree,Urine Neg (NEGATIVE); Benzodiazephine Screen, Urine Neg (NEGATIVE); Cocaine Screen, Urine Neg (NEGATIVE); Opiate Scree,Urine Neg (NEGATIVE); Phencyclidine Screen, Urine Neg (NEGATIVE)
[2024-10-08 22:20] LABS: Cannabinoid Screen, Urine Neg (NEGATIVE)
[2024-10-09] VITALS (11 sets, daily range): BP systolic 122–178; BP diastolic 68–115; PULSE 67–85; RESP 17–19; TEMP 97.2–98; O2SAT 94–99
[2024-10-09] MEDS: LEVOTHYROXINE SODIUM 100 MCG TAB PO SCH (06:14)
--- NOTE | 2024-10-09 07:22 | DVHPN2 ---
Progress Note - Dictate Date Seen: Oct 09, 2024 Has the PT tested + for MRSA If YES, has PT been informed?: No Medical Necessity Reason Pt with a Central, PICC or Fol: No vital signs Vital Sign Date Time Temp Pulse Resp B/P (MAP) Pulse Ox O2 Delivery O2 Flow Rate FiO2 10/09/24 06:29 97 Room Air 10/09/24 06:29 0 21 10/09/24 06:21 156/115 10/09/24 05:00 97.3 71 17 97.3 Total Intake and Output 10/08/24 10/08/24 10/09/24 15:00 23:00 07:00 Intake Total 400 ml 680 ml Output Total 1000 ml 900 ml Balance -600 ml -220 ml medications Current Medications Medications Dose Ordered Sig/[place] Route Start Time Stop Time Status Last Admin Dose Admin Acetaminophen/ Hydrocodone Bitart 1 tab Q4HP PRN PO 10/07/24 23:00 Ondansetron HCl 4 mg Q4HP PRN IV 10/07/24 23:00 Zinc Sulfate 220 mg DAILY PO 10/08/24 10:00 10/08/24 09:46 220 MG Ascorbic Acid 500 mg BID PO 10/08/24 10:00 10/08/24 21:54 500 MG Multivitamins 1 tab DAILY PO 10/08/24 10:00 10/08/24 09:46 1 TAB Morphine Sulfate 2 mg Q4HPRN PRN IV 10/07/24 23:00 Nitroglycerin 0.4 mg Q5MINP PRN SL 10/07/24 23:00 10/08/24 00:46 0.4 MG Morphine Sulfate 2 mg Q30M PRN IV 10/07/24 23:00 Furosemide 80 mg DAILY IV 10/08/24 10:00 10/08/24 09:48 80 MG Enoxaparin Sodium 90 mg DAILY SC 10/08/24 10:00 Hydralazine HCl 10 mg Q6HR PRN IV 10/08/24 12:00 10/09/24 06:21 10 MG Pantoprazole Sodium 40 mg DAILY PO 10/09/24 10:00 Patient Own Medication 1 tab BID PO 10/08/24 22:00 UNV Patient Own Medication 1 tab DAILY PO 10/09/24 10:00 UNV Levothyroxine Sodium 100 mcg QAM PO 10/09/24 07:00 8/5/25 06:14 100 MCG Isosorbide Mononitrate 30 mg DAILY PO 10/09/24 10:00 Carvedilol 6.25 mg BID PO 10/08/24 22:00 10/08/24 21:54 6.25 MG Ipratropium [place] 0.5 mg Q4HPRN PRN NEB 10/08/24 15:30 Piperacillin Sod/ Tazobactam Sod 100 ml @ 25 mls/hr Q12HR IV 10/08/24 22:00 10/08/24 21:59 25 MLS/HR laboratory and microbiology Laboratory Tests 10/08/24 05:39 Test 10/08/24 05:39 Range/Units Serum Glucose 222 H 74-106 mg/dL Assessment/Plan Patient is a 64-year-old gentleman who presented to the hospital with 2-1/2-3 months of bilateral lower extremities weakness, some feet swelling and also pain. Mentions dyspnea on exertion. He is poor historian. He is disheveled. He does not follow with physicians/cardiologists. Mentions history of heart attack/heart failure. Last cardiology visit was over years ago in the hospital. Denies any recent chest pains. Denies taking medications. Does smoke cigarette and use amphetamine. Cardiology is involved for cardiac aspects of care. Lying flat and not in acute distress in bed. Not using accessory muscles of breathing. Disheveled. No JVD. Mucosa is pink and wet. No carotid bruit. No goiter. Lungs are clear to auscultation. Not using accessory muscles of breathing. Cardiac: Regular, no thrill/gallop. Systolic murmur 2/6 in the apex is heard. Abdomen is soft. There is no gross mass/hepatomegaly. Dorsalis pedis is 1+ bilaterally. There is bilateral 1+ edema. Past medical history includes diabetes mellitus, hypertension, hyperlipidemia, questionable history of myocardial infarction (as per patient himself), history of heart failure, HFimpEF, COPD and old history of respiratory failure on home oxygen, paroxysmal AFib/flutter, GERD, hypothyroidism, CKD, old history of hernia repair, history of tracheostomy/PEG in placement, history of removal of tracheostomy and PEG placement and also history of throat tumor removal many years ago. He abuses methamphetamine and smokes cigarettes. Is found to have PAD. Echocardiogram of December 2020 had reported ejection fraction of 30% and severe mitral regurgitation Echocardiogram of March 2021 reported ejection fraction of 50%, inferior hypokinesis and normal valves Platelet: 167 - 121 - 181 Creatinine: 2.68 - 2.48 - 1.98 Potassium: 3.9 - 3.3 - 3.5 BNP: 155.84 Troponin (high sensitive): 75 - 70 - 72 D-Dimer: 1.57 UDS was positive for Amphetamine Chest x-ray revealed: IMPRESSION: No radiographic evidence of acute cardiopulmonary process. CT of the head revealed: IMPRESSION: 1. No acute intracranial abnormality. Venous Doppler of lower extremities revealed: IMPRESSION: NO EVIDENCE OF DEEP VENOUS THROMBOSIS. Arterial duplex of lower ext revealed: Impression: Severe left lower extremity peripheral arterial disease Severe stenosis/ near occlusion of the left MASTER CONTROL OPERATOR and high-grade stenosis at the MASTER CONTROL OPERATOR bifurcation. Recommend CT angiogram of the lower extremities to further evaluate. Diffusely diminished velocities within the left lower extremity secondary to the left MASTER CONTROL OPERATOR high-grade stenosis High-grade stenoses involving the right infrapopliteal/ tibial vasculature. EKG revealed sinus rhythm, left atrial enlargement, IVCD Echocardiogram revealed: Left ventricle: Mild concentric left ventricular hypertrophy was seen. Left ventricular systolic function was mildly reduced. LVEF was around 40%. Diffuse hypokinesis of left ventricle was seen. Abnormal relaxation of left ventricular diastolic function was seen. Right ventricle was mildly dilated with reduced systolic function. Both atria were mildly dilated. Aortic valve was not well visualized. There was trace aortic insufficiency. There was no aortic stenosis. There was trace to mild mitral regurgitation. There was no tricuspid regurgitation. Pulmonary valve was not well visualized. As there was no good tricuspid regurgitation jet, right ventricular systolic pressure could not be estimated. There was no pericardial effusion. Aortic root was mildly dilated at 3.8 cm. Patient is a 64-year-old gentleman who presented with lower extremity weakness/swelling. Does have history questioning claudication. Does have history of heart failure. Is noncompliant with medication and followups. Presentation questions component of acute on chronic heart failure. Does have history of substance abuse which could have contributed to the clinical picture. Does have minimal volume overload status. Does have baseline history of AFib/flutter and recognizing comorbidities, CHADS-VASc score is elevated and long-term full anticoagulation is advised. Recognizing CKD, dose of anticoagulation can be adjusted accordingly. Minimally increased and flat troponin in a patient with history of heart failure is assessed to reflect demand physiology. Acute coronary syndrome is not considered. Presentation questions claudication of lower extremities. Is found to have PAD. Is evaluated by Vascular. Acute on chronic heart failure, systolic Claudication Minimally elevated/flat troponin, assessed to reflect demand physiology Polysubstance abuse BLANK on CKD Cardiac suggestion for management: Manage on telemetry Gentle diuresis (IV Lasix, 80 mg daily) Follow-up electrolytes and kidney function tests and correct abnormalities. Keep potassium above 4 and magnesium above 2 Request for V/Q scan Long-term continuation of full anticoagulation in a patient with paroxysmal AFib and high CHADS-VASc score is suggested. Lovenox: 1 milligram/kilogram once daily, SC for now GDMT for systolic heart failure. Imaging and management of PAD as per Vascular. Consider Nephrology evaluation. Lifestyle and risk factor modification is advised Further evaluation and management depends on the above and clinical course A total of 55 minutes was spent reviewing the patient record, examining the patient, making a diagnostic and therapeutic plan, discussing this plan with medical personnel, following up on diagnostic studies and following the patient for clinical stability excluding any and all procedures. At least 50% of this time was spent in direct, [id number] contact. Thank you for allowing me to participate in this patient's care. Further recommendations will depend on patient's clinical course. Please do not hesitate to contact me if you have any questions or concerns. This medical document was created using electronic medical record system with [employer] computerized dictation system. Although this document has been carefully reviewed, there may still be some phonetic and typographical errors. These areas are purely typographical due to the imperfection of the software programs, and do not reflect any compromise in the patient's medical care. Plan discussed with: Patient, Other (nurse) GIOVANNA PIZARRO MD Oct 09, 2024 07:22
[2024-10-09] MEDS: PANTOPRAZOLE 40 MG TAB PO SCH (08:24)
[2024-10-09] MEDS: ISOSORBIDE MONONITRATE ER 60 MG TAB PO SCH (08:25)
[2024-10-09 09:30] LABS: Hematocrit 47.5 % (41.0-53.0); Hemoglobin 16.0 g/dL (13.5-17.5); Mean Corpuscular Hemoglobin 29.4 pg (28.0-32.0); Mean Corpuscular Volume 87.2 fL (80.0-100.0); Nucleated Red Blood Cells % 0.1 %
[2024-10-09 09:35] LABS: Alanine Aminotransferase 30 U/L (7-40); Albumin 4.6 g/dL (3.2-4.8); Anion Gap 10 (5-15); BUN/Creatinine Ratio 15.7 (10.0-20.0); Calcium 9.8 mg/dL (8.7-10.4); Carbon Dioxide 26 mmol/L (20-31); Chloride 100 mmol/L (98-107); Potassium 3.5 mmol/L (3.5-5.1)
[2024-10-09 09:36] LABS: Bilirubin, Total 0.8 mg/dL (0.2-1.0)
[2024-10-09] MEDS ORDERED: PATIENTS OWN MEDICATION (Isosorbide Mononitrate (Isosorbide Mononitrate Er) 1 TAB) PO SCH (10:00)
[2024-10-09] MEDS ORDERED: LEVOTHYROXINE SODIUM 100 MCG TAB PO SCH (10:00)
[2024-10-09 10:11] LABS: Alkaline Phosphatase 132 U/L (46-116); Blood Urea Nitrogen 31 mg/dL (9-23); Glucose 196 mg/dL (74-106); Sodium 136 mmol/L (136-145); Total Protein 8.2 g/dL (5.7-8.2)
--- NOTE | 2024-10-09 10:48 | DVH ---
NUCLEAR MEDICINE VENTILATION/PERFUSION LUNG SCAN. INDICATION: Shortness of breath COMPARISON: None TECHNIQUE: Following intravenous demonstration of 6.1 millicuries of technetium 99m MAA, and inhala tion of 5.0 mCi of Xe 133 scintigrams were obtained in multiple projections of the lungs. FINDINGS: There is normal uptake of radionuclide on both the ventilation and perfusion portions of the examinat ion. No mismatched perfusion defects are demonstrated. Uptake is normally homogeneous. IMPRESSION: Low probability for PE.
[2024-10-09] MEDS: HYDROcodone-ACET 5/325MG TAB PO PRN (12:46)
--- NOTE | 2024-10-09 13:05 | DVHPN2 ---
Progress Note - Dictate Date Seen: Oct 09, 2024 Has the PT tested + for MRSA If YES, has PT been informed?: No Medical Necessity Reason Pt with a Central, PICC or Fol: No vital signs Vital Sign Date Time Temp Pulse Resp B/P (MAP) Pulse Ox O2 Delivery O2 Flow Rate FiO2 10/09/24 11:11 138/85 10/09/24 09:25 72 10/09/24 09:00 98.0 17 96 98.0 10/09/24 07:49 Room Air* 0 21 Total Intake and Output 10/08/24 10/08/24 10/09/24 15:00 23:00 07:00 Intake Total 400 ml 680 ml Output Total 1000 ml 900 ml Balance -600 ml -220 ml medications Current Medications Medications Dose Ordered Sig/Sienna Route Start Time Stop Time Status Last Admin Dose Admin Acetaminophen/ Hydrocodone Bitart 1 tab Q4HP PRN PO 10/07/24 23:00 10/09/24 12:46 1 TAB Ondansetron HCl 4 mg Q4HP PRN IV 10/07/24 23:00 Zinc Sulfate 220 mg DAILY PO 10/08/24 10:00 10/09/24 08:26 220 MG Ascorbic Acid 500 mg BID PO 10/08/24 10:00 10/09/24 08:26 500 MG Multivitamins 1 tab DAILY PO 10/08/24 10:00 10/09/24 08:26 1 TAB Morphine Sulfate 2 mg Q4HPRN PRN IV 10/07/24 23:00 Nitroglycerin 0.4 mg Q5MINP PRN SL 10/07/24 23:00 10/08/24 00:46 0.4 MG Morphine Sulfate 2 mg Q30M PRN IV 10/07/24 23:00 Furosemide 80 mg DAILY IV 10/08/24 10:00 10/09/24 11:11 80 MG Enoxaparin Sodium 90 mg DAILY SC 10/08/24 10:00 10/09/24 11:18 90 MG Hydralazine HCl 10 mg Q6HR PRN IV 10/08/24 12:00 10/09/24 06:21 10 MG Pantoprazole Sodium 40 mg DAILY PO 10/09/24 10:00 10/09/24 08:24 40 MG Patient Own Medication 1 tab BID PO 10/08/24 22:00 UNV Patient Own Medication 1 tab DAILY PO 10/09/24 10:00 UNV Levothyroxine Sodium 100 mcg QAM PO 10/09/24 07:00 10/09/24 06:14 100 MCG Isosorbide Mononitrate 30 mg DAILY PO 10/09/24 10:00 10/09/24 08:25 30 MG Carvedilol 6.25 mg BID PO 10/08/24 22:00 10/09/24 08:25 6.25 MG Ipratropium [place] 0.5 mg Q4HPRN PRN NEB 10/08/24 15:30 Piperacillin Sod/ Tazobactam Sod 100 ml @ 25 mls/hr Q12HR IV 10/08/24 22:00 10/09/24 08:52 25 MLS/HR Clonazepam 1 mg BID PO 10/09/24 13:00 UNV objective General Appearance: alert, no distress HEENT: EOMI, PERRLA, normal external inspect of ears, no icterus, no nasal drainage Neck: no carotid bruit, no jugular venous distention (JVD), no lymphadenopathy Chest: normal thorax Respiratory: clear to auscultation, normal air movement Cardiovascular: regular rate and rhythm, no diastolic murmur, no jugular venous distention (JVD), no rub, no systolic murmur Abdominal: soft, no hepatomegaly, no mass, no splenomegaly, no tenderness Genitourinary: grossly normal external Musculoskeletal: no joint tenderness, no swelling Extremities: normal pulses, no calf tenderness, no clubbing, no cyanosis, no edema Skin: no bruising, no jaundice, no rash Neurological: alert, No focal deficit laboratory and microbiology Laboratory Tests 10/09/24 08:46 Test 10/09/24 08:46 Range/Units Serum Glucose 196 H 74-106 mg/dL Problem List 1. COPD Monitor, prn med neb tx 2. Smoker Monitor, smoking cessation 3. Elevated troponin Monitor, trend troponin, cardiology consult 4. Elevated d-dimer Monitor, VQ scan 5.CKD IV Monitor, nephrology consult 6. PAD Monitor, vascular consult 7. Polysubstance abuse Monitor, daily labs 8. Cellulitis BLE Monitor, IV abx Assessment/Plan Subjective Patient is awake and alert. Objective Patient was admitted for generalized weakness. Patient was found to be positive for methamphetamines. Patient has elevated D-dimer. VQ scan is negative for low probability for pulmonary embolus. Patient has PAD. Patient was seen by Dr. Nunez. No immediate intervention is needed for his left lower extremity. Patient was advised to quit smoking and to abstain from substance abuse. Pending nephrology evaluation. Plan DC planning for tomorrow. Plan discussed with: Patient, Other BETTY GARCIA NP Oct 09, 2024 13:05
[2024-10-09] MEDS: clonazePAM 0.5 MG TAB PO SCH (14:04)
[2024-10-10 01:00] VITALS: BP 125/87; PULSE 77; RESP 19; TEMP 98.3; O2SAT 96
[2024-10-10 05:00] VITALS: BP 151/81; PULSE 65; RESP 18; TEMP 97.8; O2SAT 98
--- NOTE | 2024-10-10 06:13 | DVHPN2 ---
Progress Note - Dictate Date Seen: Oct 10, 2024 Has the PT tested + for MRSA If YES, has PT been informed?: No Medical Necessity Reason Pt with a Central, PICC or Fol: No vital signs Vital Sign Date Time Temp Pulse Resp B/P (MAP) Pulse Ox O2 Delivery O2 Flow Rate FiO2 10/10/24 05:00 97.8 65 18 151/81 (104) 98 97.8 10/09/24 20:33 Room Air* 0 21 Total Intake and Output 10/09/24 10/09/24 10/10/24 15:00 23:00 07:00 Intake Total 100 ml 650 ml 900 ml Output Total 500 ml Balance 100 ml 650 ml 400 ml medications Current Medications Medications Dose Ordered Sig/Sienna Route Start Time Stop Time Status Last Admin Dose Admin Acetaminophen/ Hydrocodone Bitart 1 tab Q4HP PRN PO 10/07/24 23:00 10/10/24 04:20 1 TAB Ondansetron HCl 4 mg Q4HP PRN IV 10/07/24 23:00 Zinc Sulfate 220 mg DAILY PO 10/08/24 10:00 10/09/24 08:26 220 MG Ascorbic Acid 500 mg BID PO 10/08/24 10:00 10/09/24 21:42 500 MG Multivitamins 1 tab DAILY PO 10/08/24 10:00 10/09/24 08:26 1 TAB Morphine Sulfate 2 mg Q4HPRN PRN IV 10/07/24 23:00 Nitroglycerin 0.4 mg Q5MINP PRN SL 10/07/24 23:00 10/08/24 00:46 0.4 MG Morphine Sulfate 2 mg Q30M PRN IV 10/07/24 23:00 Furosemide 80 mg DAILY IV 10/08/24 10:00 10/09/24 11:11 80 MG Enoxaparin Sodium 90 mg DAILY SC 10/08/24 10:00 10/09/24 11:18 90 MG Hydralazine HCl 10 mg Q6HR PRN IV 10/08/24 12:00 10/09/24 06:21 10 MG Pantoprazole Sodium 40 mg DAILY PO 10/09/24 10:00 10/09/24 08:24 40 MG Patient Own Medication 1 tab BID PO 10/08/24 22:00 UNV Patient Own Medication 1 tab DAILY PO 10/09/24 10:00 UNV Levothyroxine Sodium 100 mcg QAM PO 10/09/24 07:00 10/09/24 06:14 100 MCG Isosorbide Mononitrate 30 mg DAILY PO 10/09/24 10:00 10/09/24 08:25 30 MG Carvedilol 6.25 mg BID PO 10/08/24 22:00 10/09/24 21:43 6.25 MG Ipratropium [place] 0.5 mg Q4HPRN PRN NEB 10/08/24 15:30 Piperacillin Sod/ Tazobactam Sod 100 ml @ 25 mls/hr Q12HR IV 10/08/24 22:00 10/09/24 21:43 25 MLS/HR Clonazepam 1 mg BID PO 10/09/24 13:00 10/09/24 21:42 1 MG Nifedipine 30 mg DAILY PO 10/09/24 13:15 10/09/24 14:05 30 MG laboratory and microbiology Laboratory Tests 10/09/24 08:46 Test 10/09/24 08:46 Range/Units Serum Glucose 196 H 74-106 mg/dL Assessment/Plan Patient is a 64-year-old gentleman who presented to the hospital with 2-1/2-3 months of bilateral lower extremities weakness, some feet swelling and also pain. Mentions dyspnea on exertion. He is poor historian. He is disheveled. He does not follow with physicians/cardiologists. Mentions history of heart attack/heart failure. Last cardiology visit was over years ago in the hospital. Denies any recent chest pains. Denies taking medications. Does smoke cigarette and use amphetamine. Cardiology is involved for cardiac aspects of care. Lying flat and not in acute distress in bed. Not using accessory muscles of breathing. Disheveled. No JVD. Mucosa is pink and wet. No carotid bruit. No goiter. Lungs are clear to auscultation. Not using accessory muscles of breathing. Cardiac: Regular, no thrill/gallop. Systolic murmur 2/6 in the apex is heard. Abdomen is soft. There is no gross mass/hepatomegaly. Dorsalis pedis is 1+ bilaterally. There is bilateral 1+ edema. Past medical history includes diabetes mellitus, hypertension, hyperlipidemia, questionable history of myocardial infarction (as per patient himself), history of heart failure, HFimpEF, COPD and old history of respiratory failure on home oxygen, paroxysmal AFib/flutter, GERD, hypothyroidism, CKD, old history of hernia repair, history of tracheostomy/PEG in placement, history of removal of tracheostomy and PEG placement and also history of throat tumor removal many years ago. He abuses methamphetamine and smokes cigarettes. Is found to have PAD. Echocardiogram of December 2020 had reported ejection fraction of 30% and severe mitral regurgitation Echocardiogram of March 2021 reported ejection fraction of 50%, inferior hypokinesis and normal valves Platelet: 167 - 121 - 181 Creatinine: 2.68 - 2.48 - 1.98 Potassium: 3.9 - 3.3 - 3.5 BNP: 155.84 Troponin (high sensitive): 75 - 70 - 72 D-Dimer: 1.57 UDS was positive for Amphetamine Chest x-ray revealed: IMPRESSION: No radiographic evidence of acute cardiopulmonary process. CT of the head revealed: IMPRESSION: 1. No acute intracranial abnormality. Venous Doppler of lower extremities revealed: IMPRESSION: NO EVIDENCE OF DEEP VENOUS THROMBOSIS. Venous duplex of lower ext revealed: IMPRESSION: Low probability for PE. 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 Recommend CT angiogram of the lower extremities to further evaluate. Diffusely diminished velocities within the left lower extremity secondary to the left [employer]ING MACHINE OPERATOR high-grade stenosis High-grade stenoses involving the right infrapopliteal/ tibial vasculature. EKG revealed sinus rhythm, left atrial enlargement, IVCD Echocardiogram revealed: Left ventricle: Mild concentric left ventricular hypertrophy was seen. Left ventricular systolic function was mildly reduced. LVEF was around 40%. Diffuse hypokinesis of left ventricle was seen. Abnormal relaxation of left ventricular diastolic function was seen. Right ventricle was mildly dilated with reduced systolic function. Both atria were mildly dilated. Aortic valve was not well visualized. There was trace aortic insufficiency. There was no aortic stenosis. There was trace to mild mitral regurgitation. There was no tricuspid regurgitation. Pulmonary valve was not well visualized. As there was no good tricuspid regurgitation jet, right ventricular systolic pressure could not be estimated. There was no pericardial effusion. Aortic root was mildly dilated at 3.8 cm. Patient is a 64-year-old gentleman who presented with lower extremity weakness/swelling. Does have history questioning claudication. Does have history of heart failure. Is noncompliant with medication and followups. Presentation questions component of acute on chronic heart failure. Does have history of substance abuse which could have contributed to the clinical picture. Does have minimal volume overload status. Does have baseline history of AFib/flutter and recognizing comorbidities, CHADS-VASc score is elevated and long-term full anticoagulation is advised. Recognizing CKD, dose of anticoagulation can be adjusted accordingly. Minimally increased and flat troponin in a patient with history of heart failure is assessed to reflect demand physiology. Acute coronary syndrome is not considered. Presentation questions claudication of lower extremities. Is found to have PAD. Is evaluated by Vascular. Acute on chronic heart failure, systolic Claudication Minimally elevated/flat troponin, assessed to reflect demand physiology Polysubstance abuse BLANK on CKD Cardiac suggestion for management: Manage on telemetry Gentle diuresis (IV Lasix, 80 mg daily) Follow-up electrolytes and kidney function tests and correct abnormalities. Keep potassium above 4 and magnesium above 2 Long-term continuation of full anticoagulation in a patient with paroxysmal AFib and high CHADS-VASc score is suggested. You may consider oral anticoagulation (Eliquis?) GDMT for systolic heart failure. Imaging and management of PAD as per Vascular. Consider Nephrology evaluation. Lifestyle and risk factor modification is advised Further evaluation and management depends on the above and clinical course A total of 55 minutes was spent reviewing the patient record, examining the patient, making a diagnostic and therapeutic plan, discussing this plan with medical personnel, following up on diagnostic studies and following the patient for clinical stability excluding any and all procedures. At least 50% of this time was spent in direct, [id number] contact. Thank you for allowing me to participate in this patient's care. Further recommendations will depend on patient's clinical course. Please do not hesitate to contact me if you have any questions or concerns. This medical document was created using electronic medical record system with [employer] computerized dictation system. Although this document has been carefully reviewed, there may still be some phonetic and typographical errors. These areas are purely typographical due to the imperfection of the software programs, and do not reflect any compromise in the patient's medical care. Plan discussed with: Patient, Other (nurse) GIOVANNA PIZARRO MD Oct 10, 2024 06:13
[2024-10-10 08:00] VITALS: PULSE 65; PULSE 70; RESP 18; O2SAT 96
--- NOTE | 2024-10-10 08:51 | DVHINCON2 ---
Date of service: Oct 10, 2024 Reason for Consultation cora History of Present Illness 64 years old male with past medical history of methamphetamine abuse, hypertension, possible Chronic kidney disease, atrial fibrillation, questionable MO, congestive heart failure, COPD, GERD, hypothyroidism, history of tracheostomy and PEG placement and removal, severe mitral regurg presented with chief complaints of lower extremity swelling and pain he is a poor historian Family member is bedside Denies any urinary complaints Past Medical History As per HPI Allergies: Coded Allergies: NO KNOWN ALLERGIES (Unverified , 04/10/15) Home Meds Active Scripts Lidocaine Hcl (Lidocaine) 3 % Cre, 3 % EX TID for 10 Days, #28.3 GRAMS Apply a thin layer to the affected area 3 times daily Prov:BRAEDEN DELACRUZ [facility] 11/19/23 Valacyclovir Hcl (Valtrex) 1 Gm Tab, 1 TAB PO TID for 7 Days, #21 TAB Prov:BRAEDEN DELACRUZP 11/19/23 Cholecalciferol (Vitamin D3 Super Strength) 2,000 Unit Cap, 4000 UNIT PO DAILY for 30 Days, #30 CAP Prov:DARION JAEGER MD 04/09/21 Isosorbide Mononitrate (Isosorbide Mononitrate Er) 30 Mg Tab, 1 TAB PO DAILY, #30 TAB Prov:BETHANIE YANES MD 02/23/21 Levothyroxine Sodium (SYNTHROID TABLET) 100 Mcg Tb, 1 TAB PO DAILY, #30 TAB Prov:BETHANIE YANES MD 02/23/21 Pantoprazole Sodium Sesquihydr (Protonix) 40 Mg Tab, 40 MG PO DAILY, #30 TAB Prov:BETHANIE YANES MD 02/23/21 Furosemide (Lasix) 40 Mg Tab, 40 MG PO DAILY for 30 Days, #30 TAB Prov:BETHANIE YANES MD 02/23/21 Carvedilol (Coreg) 6.25 Mg Tab, 1 TAB PO BID, #60 TAB Prov:BETHANIE YANES MD 02/23/21 Nicotine (Nicoderm 21MG/24HR) 1 Patch Ph, 1 PATCH TOP DAILY, #28 PATCH Prov:BETHANIE YANES MD 01/02/21 Reported Medications Amiodarone Hcl (Amiodarone Hcl) 200 Mg Tab, 200 MG PO DAILY 02/17/21 Albuterol Sulfate (VENTOLIN MDI) 90 Mcg Ih, 2 PUFF IN Q6HP PRN for SHORTNESS OF BREATH for 30 Days, MCG 02/17/21 Aspirin (Aspirin) 81 Mg Tab, 1 TAB PO DAILY 12/27/20 Insulin Glargine (Basaglar Kwikpen) 100 Unit/Ml Inj, 20 UNITS SC DAILY 12/27/20 Apixaban Base (ELIQUIS) 5 Mg Tab, 1 TAB PO BID 12/27/20 Metformin Hydrochloride (Metformin Hcl) 1,000 Mg Tab, 1 TAB PO BID 12/27/20 Current Medications Current Medications Medications (Trade) Dose Ordered Sig/Sienna Route PRN Reason Start Time Stop Time Status Last Admin Apixaban (Eliquis) 5 mg BID PO 10/10/24 10:00 10/10/24 15:58 DC 10/10/24 10:09 Family History: Diabetes mellitus G8 MOTHER G8 FATHER Review of Systems Unknown exactly H&P Exam Vital Signs/I&O Vital Sign Date Time Temp Pulse Resp B/P (MAP) Pulse Ox O2 Delivery O2 Flow Rate FiO2 10/10/24 13:00 97.8 66 18 124/82 (96) 94 97.8 10/10/24 08:00 Room Air* 0 21 Intake and Output 10/09/24 10/10/24 19:00 07:00 Intake Total 750 ml 1000 ml Output Total 500 ml Balance 750 ml 500 ml Intake Oral 650 ml 900 ml IV Total 100 ml 100 ml Output Urine Total 500 ml # Voids 3 Physical Exam General-not in any distress HEENT-normocephalic, no icterus, no pallor, neck supple Respiratory-fair air entry bilateral, [id number] heard, positive murmur Abdominal-soft, nontender, nondistended Musculoskeletal-no pedal edema, no calf tenderness Genitourinary-deferred Neuro-awake alert oriented , Psychiatric-not agitated, cooperative, Labs/Diagnostic Data Labs/Diagnostic Data Laboratory Tests Test 10/09/24 08:46 10/08/24 05:59 10/08/24 05:39 10/07/24 23:59 Range/Units White Blood Count 8.7 7.1 4.4-10.8 10^3/uL Red Blood Count 5.44 4.62 4.5-5.90 10^6/uL Hemoglobin 16.0 # 13.6 13.5-17.5 g/dL Hematocrit 47.5 # 40.2 #L 41.0-53.0 % Mean Corpuscular Volume 87.2 86.9 80.0-100.0 fL Mean Corpuscular Hemoglobin 29.4 29.4 28.0-32.0 pg Mean Corpuscular Hemoglobin Concent 33.6 33.9 32.0-36.0 g/dL Red Cell Distribution Width 16.3 H 16.1 H 11.8-14.3 % Platelet Count 181 121 L 140-450 10^3/uL Mean Platelet Volume 8.7 8.5 6.9-10.8 fL Neutrophils (%) (Auto) 73.6 61.8 37.0-80.0 % Lymphocytes (%) (Auto) 14.9 22.5 10.0-50.0 % Monocytes (%) (Auto) 7.2 11.0 0.0-12.0 % Eosinophils (%) (Auto) 3.3 3.7 0.0-7.0 % Basophils (%) (Auto) 1.0 1.0 0.0-2.0 % Neutrophils # (Auto) 6.4 4.4 1.6-8.6 10 ^3/uL Lymphocytes # (Auto) 1.3 1.6 0.4-5.4 10 ^3/uL Monocytes # (Auto) 0.6 0.8 0-1.3 10 ^3/uL Eosinophils # (Auto) 0.3 0.3 0-0.8 10 ^3/uL Basophils # (Auto) 0.1 0.1 0-0.2 10 ^3/uL Nucleated Red Blood Cells 0.1 0.1 % Sodium Level 136 139 136-145 mmol/L Potassium Level 3.5 3.3 L 3.5-5.1 mmol/L Chloride Level 100 101 98-107 mmol/L Carbon Dioxide Level 26 28 20-31 mmol/L Anion Gap 10 10 5-15 Blood Urea Nitrogen 31 H 32 H 9-23 mg/dL Creatinine 1.98 H 2.48 H 0.700-1.30 mg/dL Glomerular Filtration Rate Calc 37 28 >90 mL/min BUN/Creatinine Ratio 15.7 12.9 10.0-20.0 Serum Glucose 196 H 222 H 74-106 mg/dL Calcium Level 9.8 9.4 8.7-10.4 mg/dL Total Bilirubin 0.8 0.5 0.2-1.0 mg/dL Aspartate Amino Transferase (AST) 27 27 13-40 U/L Alanine Aminotransferase (ALT) 30 31 7-40 U/L Alkaline Phosphatase 132 H 123 H 46-116 U/L Total Protein 8.2 7.3 5.7-8.2 g/dL Albumin 4.6 4.1 3.2-4.8 g/dL D-Dimer, Quantitative 1.57 H 0.0-0.49 mg/L FEU Urine Color Yellow Yellow Urine Clarity Clear Clear Urine pH 5.5 5.0-9.0 Urine Specific [place] 1.021 1.001-1.035 Urine Protein 1+ H Negative Urine Ketones Negative Negative Urine Blood Negative Negative /uL Urine Nitrite Negative Negative Urine Bilirubin Negative Negative Urine Urobilinogen Normal Negative mg/dL Urine Leukocyte Esterase Negative Negative /uL Urine RBC 2 0 - 3 /hpf Urine Microscopic WBC 1 0-3 /HPF Urine Squamous Epithelial Cells Few <5 /hpf Urine Bacteria None seen None Seen /hpf Urine Hyaline Casts Few 0 - 2 /lpf Urine Mucus Few None Seen Urine Glucose 2+ H Normal mg/dL Urine Opiates Screen Neg NEGATIVE Urine Fentanyl Screen Neg NEGATIVE Urine Barbiturates Screen Neg NEGATIVE Urine Phencyclidine Screen Neg NEGATIVE Urine Amphetamines Screen Pos NEGATIVE Urine Benzodiazepines Screen Neg NEGATIVE Urine Cocaine Screen Neg NEGATIVE Urine Cannabinoids Screen Neg NEGATIVE Test 10/07/24 21:56 10/07/24 19:47 10/07/24 18:44 Range/Units Troponin I High Sensitivity 72 *H 70 *H 75 *H </=54 ng/L Lactic Acid Level 1.8 0.4-2.0 mmol/L White Blood Count 7.3 4.4-10.8 10^3/uL Red Blood Count 5.13 4.5-5.90 10^6/uL Hemoglobin 15.1 13.5-17.5 g/dL Hematocrit 44.7 41.0-53.0 % Mean Corpuscular Volume 87.3 80.0-100.0 fL Mean Corpuscular Hemoglobin 29.4 28.0-32.0 pg Mean Corpuscular Hemoglobin Concent 33.7 32.0-36.0 g/dL Red Cell Distribution Width 16.2 H 11.8-14.3 % Platelet Count 167 140-450 10^3/uL Mean Platelet Volume 8.2 6.9-10.8 fL Neutrophils (%) (Auto) 72.8 37.0-80.0 % Lymphocytes (%) (Auto) 16.1 10.0-50.0 % Monocytes (%) (Auto) 8.0 0.0-12.0 % Eosinophils (%) (Auto) 2.7 0.0-7.0 % Basophils (%) (Auto) 0.4 0.0-2.0 % Neutrophils # (Auto) 5.3 1.6-8.6 10 ^3/uL Lymphocytes # (Auto) 1.2 0.4-5.4 10 ^3/uL Monocytes # (Auto) 0.6 0-1.3 10 ^3/uL Eosinophils # (Auto) 0.2 0-0.8 10 ^3/uL Basophils # (Auto) 0 0-0.2 10 ^3/uL Nucleated Red Blood Cells 0.2 % Sodium Level 140 136-145 mmol/L Potassium Level 3.9 3.5-5.1 mmol/L Chloride Level 102 98-107 mmol/L Carbon Dioxide Level 28 20-31 mmol/L Anion Gap 10 5-15 Blood Urea Nitrogen 34 H 9-23 mg/dL Creatinine 2.68 H 0.700-1.30 mg/dL Glomerular Filtration Rate Calc 25 >90 mL/min BUN/Creatinine Ratio 12.7 10.0-20.0 Serum Glucose 243 H 74-106 mg/dL Calcium Level 9.9 8.7-10.4 mg/dL B-Type Natriuretic Peptide 155.84 0-100 pg/mL Assessment Acute kidney injury hemodynamic mediated etiology in the setting of hypertensive emergency Congestive heart failure acute on chronic Methamphetamine abuse Recommendations Blood pressure control Renal function improving since admission Nonoliguric Stop abusing methamphetamine Plan discussed with: Patient CHUY BASSETT MD Oct 10, 2024 08:50
[2024-10-10 09:00] VITALS: BP 103/64; PULSE 64; RESP 17; TEMP 98; O2SAT 96
[2024-10-10] MEDS: APIXABAN 5 MG TAB PO SCH (10:09)
[2024-10-10 13:00] VITALS: BP 124/82; PULSE 66; RESP 18; TEMP 97.8; O2SAT 94
--- NOTE | 2024-10-10 16:20 | DVHDS2 ---
Discharge Summary Date of Admission Oct 07, 2024 at 22:59 Date of Discharge: Oct 10, 2024 Labs/Diagnostic Data: Laboratory Results Test 10/09/24 08:46 10/08/24 05:59 10/07/24 23:59 10/07/24 21:56 White Blood Count 8.7 10^3/uL (4.4-10.8) Red Blood Count 5.44 10^6/uL (4.5-5.90) Hemoglobin 16.0 g/dL (13.5-17.5) Hematocrit 47.5 % (41.0-53.0) Mean Corpuscular Volume 87.2 fL (80.0-100.0) Mean Corpuscular Hemoglobin 29.4 pg (28.0-32.0) Mean Corpuscular Hemoglobin Concent 33.6 g/dL (32.0-36.0) Red Cell Distribution Width 16.3 % (11.8-14.3) Platelet Count 181 10^3/uL (140-450) Mean Platelet Volume 8.7 fL (6.9-10.8) Neutrophils (%) (Auto) 73.6 % (37.0-80.0) Lymphocytes (%) (Auto) 14.9 % (10.0-50.0) Monocytes (%) (Auto) 7.2 % (0.0-12.0) Eosinophils (%) (Auto) 3.3 % (0.0-7.0) Basophils (%) (Auto) 1.0 % (0.0-2.0) Neutrophils # (Auto) 6.4 10 ^3/uL (1.6-8.6) Lymphocytes # (Auto) 1.3 10 ^3/uL (0.4-5.4) Monocytes # (Auto) 0.6 10 ^3/uL (0-1.3) Eosinophils # (Auto) 0.3 10 ^3/uL (0-0.8) Basophils # (Auto) 0.1 10 ^3/uL (0-0.2) Nucleated Red Blood Cells 0.1 % Sodium Level 136 mmol/L (136-145) Potassium Level 3.5 mmol/L (3.5-5.1) Chloride Level 100 mmol/L (98-107) Carbon Dioxide Level 26 mmol/L (20-31) Anion Gap 10 (5-15) Blood Urea Nitrogen 31 mg/dL (9-23) Creatinine 1.98 mg/dL (0.700-1.30) Glomerular Filtration Rate Calc 37 mL/min (>90) BUN/Creatinine Ratio 15.7 (10.0-20.0) Serum Glucose 196 mg/dL (74-106) Calcium Level 9.8 mg/dL (8.7-10.4) Total Bilirubin 0.8 mg/dL (0.2-1.0) Aspartate Amino Transferase (AST) 27 U/L (13-40) Alanine Aminotransferase (ALT) 30 U/L (7-40) Alkaline Phosphatase 132 U/L (46-116) Total Protein 8.2 g/dL (5.7-8.2) Albumin 4.6 g/dL (3.2-4.8) D-Dimer, Quantitative 1.57 mg/L FEU (0.0-0.49) Urine Color Yellow (Yellow) Urine Clarity Clear (Clear) Urine pH 5.5 (5.0-9.0) Urine Specific [place] 1.021 (1.001-1.035) Urine Protein 1+ (Negative) Urine Ketones Negative (Negative) Urine Blood Negative /uL (Negative) Urine Nitrite Negative (Negative) Urine Bilirubin Negative (Negative) Urine Urobilinogen Normal mg/dL (Negative) Urine Leukocyte Esterase Negative /uL (Negative) Urine RBC 2 /hpf (0 - 3) Urine Microscopic WBC 1 /HPF (0-3) Urine Squamous Epithelial Cells Few /hpf (<5) Urine Bacteria None seen /hpf (None Seen) Urine Hyaline Casts Few /lpf (0 - 2) Urine Mucus Few (None Seen) Urine Glucose 2+ mg/dL (Normal) Urine Opiates Screen Neg (NEGATIVE) Urine Fentanyl Screen Neg (NEGATIVE) Urine Barbiturates Screen Neg (NEGATIVE) Urine Phencyclidine Screen Neg (NEGATIVE) Urine Amphetamines Screen Pos (NEGATIVE) Urine Benzodiazepines Screen Neg (NEGATIVE) Urine Cocaine Screen Neg (NEGATIVE) Urine Cannabinoids Screen Neg (NEGATIVE) Troponin I High Sensitivity 72 ng/L (</=54) Test 10/07/24 19:47 10/07/24 18:44 Lactic Acid Level 1.8 mmol/L (0.4-2.0) B-Type Natriuretic Peptide 155.84 pg/mL (0-100) Other Laboratory Tests 10/09/24 08:46 Brief Hx & Hospital Course: 64 yo male patient with a hx of HTN, CAD, CHF, and COPD c/o lower extremity for over 2 months. Patient reports his feet being swollen and painful causing him difficulty ambulating. Patient also had some SOB on exertion. Patient was admitted on 10/07/24 related to generalized weakness. Patient wad found to have polysubstance abuse. Patient was positive for methamphetamines Patient has an BLANK superimposed on CKD. Kidney function did improve to baseline however patient did not wait to see personal finance instructor Patient had complaints of non healing wounds to left lower extremity. Arterial ultrasound was done. Patient had severe PAD to left lower extremity. Patient was advised against smoking and methamphetamines. Vascular surgeon did see patient and stated patient needs to improve blood pressure and to stop smoking and he would see patient outpatient. No emergent need for surgery at this time. Patient left AMA before he could be cleared for discharge. There were no complaints or new complaints upon discharge, all questions and concerns were answered. Patient was advised to return to the ER or call 911 if any headaches, dizziness, shortness of breath, chest pain, bleeding, fevers, or worsening of medical condition. Patient/Family was counseled about treatment plan, medications, possible side effects, patient verbalized understanding. All questions were answered to the best of my ability. The patient symptoms improved and they are okay to be DC. Condition at Discharge: Stable Discharge Instruct/Medications Scheduled Amiodarone Hcl (Amiodarone Hcl), 200 MG PO DAILY, (Reported) Apixaban Base (Eliquis), 1 TAB PO BID, (Reported) Aspirin (Aspirin), 1 TAB PO DAILY, (Reported) Carvedilol (Coreg), 1 TAB PO BID Cholecalciferol (Vitamin D3 Super Strength), 4,000 UNIT PO DAILY Furosemide (Lasix), 40 MG PO DAILY Insulin Glargine (Basaglar Kwikpen), 20 UNITS SC DAILY, (Reported) Isosorbide Mononitrate (Isosorbide Mononitrate Er), 1 TAB PO DAILY Levothyroxine Sodium (Synthroid Tablet), 1 TAB PO DAILY Lidocaine Hcl (Lidocaine), 3 % EX TID Metformin Hydrochloride (Metformin Hcl), 1 TAB PO BID, (Reported) Nicotine (Nicoderm 21MG/24HR), 1 PATCH TOP DAILY Pantoprazole Sodium Sesquihydr (Protonix), 40 MG PO DAILY Valacyclovir Hcl (Valtrex), 1 TAB PO TID Scheduled PRN Albuterol Sulfate (Ventolin Mdi), 2 PUFF IN Q6HP PRN for SHORTNESS OF BREATH, (Reported) Discharge Statement: "Patient was advised to return to the ER or call 911 if any headaches, dizziness, shortness of breath, chest pain, abdominal pain, bleeding, fevers, or worsening of medical condition. Patient was counseled about treatment plan, medications, possible side effects, patientverbalized understanding. All questions were answered to the best of my ability. This discharge took greater then 30 minutes in planning, reviewing documentation, counseling the patient, and discussing with other team members." ASSESSMENT ASSESSMENT Assessment BETTY GARCIA NP Oct 10, 2024 16:20
--- NOTE | 2024-10-12 14:53 | ECG ---
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
== END 2024-10-10 15:45 | disposition left against medical advice (07) | DRG 299 ==
LOC: ER 17:23 → OVERFLOW 22:59 → TELE-WESTW 10-08 10:16
PROVIDERS: ADMIT Internal Medicine; ATTEND Internal Medicine
DX: E11.51 Type 2 diabetes mellitus with diabetic peripheral angiopathy without gangrene (principal); I50.23 Acute on chronic systolic (congestive) heart failure; I13.0 Hypertensive heart and chronic kidney disease with heart failure and stage 1 through stage 4 chronic kidney disease, or unspecified chronic kidney disease; L03.115 Cellulitis of right lower limb; N18.4 Chronic kidney disease, stage 4 (severe); I24.9 Acute ischemic heart disease, unspecified; N17.9 Acute kidney failure, unspecified; I16.1 Hypertensive emergency; I48.92 Unspecified atrial flutter; L03.116 Cellulitis of left lower limb; Z53.29 Procedure and treatment not carried out because of patient's decision for other reasons; I25.10 Atherosclerotic heart disease of native coronary artery without angina pectoris; E11.22 Type 2 diabetes mellitus with diabetic chronic kidney disease; J44.89 Other specified chronic obstructive pulmonary disease; F17.210 Nicotine dependence, cigarettes, uncomplicated; I48.0 Paroxysmal atrial fibrillation; K21.9 Gastro-esophageal reflux disease without esophagitis; E03.9 Hypothyroidism, unspecified; F15.10 Other stimulant abuse, uncomplicated; E78.5 Hyperlipidemia, unspecified; Z79.84 Long term (current) use of oral hypoglycemic drugs; Z79.4 Long term (current) use of insulin; Z79.82 Long term (current) use of aspirin; Z79.01 Long term (current) use of anticoagulants; I25.2 Old myocardial infarction; Z99.81 Dependence on supplemental oxygen; Z83.3 Family history of diabetes mellitus; Z79.899 Other long term (current) drug therapy; Z91.148 Patient's other noncompliance with medication regimen for other reason
CPT/HCPCS: 36415; 70450; 71045; 78582; 80048; 80053; 80307; 81001; 83605; 83880; 84484; 85025; 85379; 87040; 93005; 93306; 93925; 93970; G0378; J2543